=== PATIENT | female | born 1960 | race Two or more races ===

== ENCOUNTER → 2020-07-04 08:58 | Outpatient (BNVA) | payer OTHER, SELFPAY | PROVIDERS: PCP Nurse Practitioner Family; Referring Provider Nurse Practitioner Family; Visit Provider Student in an Organized Health Care Education/Training Program | DX: Z76.89 Persons encountering health services in other specified circumstances (principal) ==

== ENCOUNTER 2020-07-05 08:26 | Outpatient (REF) | payer OTHER, SELFPAY ==
--- NOTE | 2020-07-05 | US_ITS ---
EXAMINATION: US ABDOMEN COMPLETE CLINICAL INFORMATION: Chronic hepatitis C. COMPARISON: Ultrasound abdomen complete dated 12/24/2018 and 06/25/2017. CT abdomen and pelvis with contrast dated 08/21/2017. MRI abdomen without and with contrast dated 01/06/2015. TECHNIQUE: Real-time imaging of the abdominal viscera. FINDINGS: PANCREAS: The visualized head and the body of the pancreas are homogeneous in echotexture. The tail is obscured by overlying gas. ABDOMINAL AORTA: The proximal, mid, and distal segments are normal in caliber. INFERIOR VENA CAVA: Visualized portions are normal. LIVER: There is increased liver echogenicity. The liver is normal in size. The liver contour is normal. No focal hepatic lesion. There is no intrahepatic biliary duct dilatation seen. GALLBLADDER: The gallbladder is physiologically distended. Multiple mobile gallstones are present. No evidence of gallbladder wall thickening or pericholecystic fluid. COMMON BILE DUCT: Normal in caliber measuring 0.6 cm in diameter. RIGHT KIDNEY: Normal. No hydronephrosis. No renal calculi or focal parenchymal lesions. The kidney measures 9.3 cm in maximum dimension. LEFT KIDNEY: Normal. No hydronephrosis. No renal calculi or focal parenchymal lesions. The kidney measures 10.5 cm in maximum dimension. SPLEEN: Normal. The spleen measures 9.6 cm in maximum dimension. FREE FLUID: None. US/US abdomen complete IMPRESSION: Cholelithiasis without wall thickening or tenderness in the right upper quadrant. Hepatic steatosis without focal lesion. The above findings are unchanged to previous study 12/24/2018.
== END 2020-07-05 08:27 | disposition home or self-care (01) ==
LOC: HO.US 08:26
PROVIDERS: Visit Provider Internal Medicine
DX: B18.2 Chronic viral hepatitis C (principal)
CPT/HCPCS: 76700

== ENCOUNTER → 2020-07-11 10:18 | Outpatient (BNVA) | payer OTHER, SELFPAY | PROVIDERS: PCP Nurse Practitioner Family; Visit Provider Student in an Organized Health Care Education/Training Program | DX: M17.11 Unilateral primary osteoarthritis, right knee (principal); Z79.899 Other long term (current) drug therapy | CPT/HCPCS: 20610; 99211 ==

== ENCOUNTER 2020-07-17 08:42 | Outpatient (REF) | payer OTHER, SELFPAY ==
[2020-07-17 09:15] LABS: MANUAL DIFF FLAG NO
[2020-07-17 09:17] LABS: Basophils Percent Auto 0.4 % (0-2); Eosinophils Absolute Auto 0.1 X10*3/uL (0.0-0.4); Eosinophils Percent Auto 1.4 % (0-4); Hematocrit 38.3 % (37-47); Hemoglobin 12.4 g/dl (12.0-16.0); Imm Gran Abs Auto 0.02 X10*3/uL (0.00-0.03); Imm Gran Pct Auto 0.4 % (0.0-0.4); Lymphocytes Absolute Auto 1.6 X10*3/uL (1.2-4.9); Lymphocytes Percent Auto 27.6 % (20-40); Mean Corpuscular HGB Conc 32.4 g/dl (31.0-35.0); Mean Corpuscular Hemoglobin 28.5 pg (27.0-33.0); Monocytes Absolute Auto 0.4 X10*3/uL (0.1-1.2); Monocytes Percent Auto 7.3 % (2-11); Neutrophils Absolute Auto 3.6 X10*3/uL (2.0-8.3); Neutrophils Percent Auto 62.9 % (45-73); Platelet Count 230 X10*3/uL (160-400); Red Blood Count 4.35 X10*6/uL (4.20-5.50); Red Cell Distribution Width 13.4 % (11.0-16.0); White Blood Count 5.7 X10*3/uL (4.8-10.8)
[2020-07-17 09:23] LABS: Prothrombin Time 11.9 SEC (10.8-13.0)
[2020-07-17 09:45] LABS: Alanine Aminotransferase 15 U/L (0-31); Albumin Level 4.3 g/dL (3.5-5.0); Alkaline Phosphatase 125 U/L (39-117); Aspartate Amino Transferase 24 U/L (5-31); Bilirubin Direct 0.2 mg/dL (0.0-0.5); Bilirubin Total 0.5 mg/dL (0.0-1.0); Total Protein 7.9 g/dL (6.5-8.0)
[2020-07-18 11:23] LABS: Alpha Fetoprotein 2.8 ng/mL
[2020-09-27 11:55] LABS: HCV Log PCR <1.18 NOT DETECTED; HepC Viral Load <15 NOT DETECTED
== END 2020-07-17 08:43 | disposition home or self-care (01) ==
LOC: HO.LAB 08:42
PROVIDERS: PCP General Practice; Visit Provider Internal Medicine
DX: B18.2 Chronic viral hepatitis C (principal); Z87.19 Personal history of other diseases of the digestive system
CPT/HCPCS: 36415; 80076; 82105; 85025; 85610; 87522

== ENCOUNTER 2020-08-14 10:48 | Outpatient (REF) | payer OTHER, SELFPAY ==
--- NOTE | 2020-08-14 | MM_ITS ---
EXAMINATION: MM SCREENING DIGITAL BREAST TOMOSYNTHESIS, BILATERAL CLINICAL INFORMATION: Screening. Asymptomatic. The lifetime risk of breast cancer based on the Tyrer-Cuzick Model is 4%. COMPARISON: Mammography: 07/01/2019, 05/29/2018, 04/30/2017 TECHNIQUE: Digital breast tomosynthesis is performed in both the craniocaudal and mediolateral oblique views along with computer-aided detection (CAD). Synthesized 2D images are generated from the tomosynthesis. FINDINGS: There are scattered areas of fibroglandular density (ACR BI-RADS breast composition Category b). There are no significant masses, abnormal calcifications, or other abnormalities. Parenchymal pattern is similar to prior studies. No significant changes. MM/MM tomosynthesis screening BI IMPRESSION: No mammographic evidence of malignancy. ASSESSMENT: BI-RADS 1: Negative RECOMMENDATION: Routine annual mammography screening. This patient's information was entered into a reminder system with a target due date for their next mammogram.
== END 2020-08-14 10:49 | disposition home or self-care (01) ==
LOC: HO.MAMMO 10:48
PROVIDERS: Visit Provider General Practice
DX: Z12.31 Encounter for screening mammogram for malignant neoplasm of breast (principal)
CPT/HCPCS: 77063; 77067

== ENCOUNTER → 2020-11-09 10:11 | Outpatient (BNVA) | payer OTHER, SELFPAY | PROVIDERS: PCP General Practice; Visit Provider Student in an Organized Health Care Education/Training Program | DX: M17.11 Unilateral primary osteoarthritis, right knee (principal) | CPT/HCPCS: 20610; 99212 ==

== ENCOUNTER 2021-02-05 18:05 | Inpatient (IN) | payer OTHER, SELFPAY ==
--- NOTE | ~2021-02-05 | CT_ITS ---
EXAMINATION: CT ABDOMEN AND PELVIS WITH CONTRAST CLINICAL INFORMATION: Diffuse abdominal pain worse in the epigastrium COMPARISON: CT abdomen pelvis 08/21/2017 TECHNIQUE: Multidetector volumetric images were obtained from the superior aspect of the liver through the pubic symphysis following administration 85 mL of Omnipaque 350 intravenous contrast. Sagittal and coronal reformatted images were obtained on the technologist's workstation. Oral contrast: No This CT examination was performed using dose optimization techniques as appropriate, variously including the following: *Automated exposure control *Adjustment of mA and/or kV according to patient size (this includes techniques or standardized protocols for targeted exams where dose is matched to indication/reason for exam; i.e. extremities or head) *Use of iterative reconstruction technique DLP: 578 mGy-cm FINDINGS: LUNG BASES: The visualized lung bases are unremarkable. LIVER, GALLBLADDER, AND BILIARY TREE: The liver is normal in size, shape, and attenuation. No focal hepatic lesion or biliary ductal dilatation is present. The gallbladder contains at least one large gallstone measuring 1.4 cm in diameter with a tiny area of central calcification. No evidence of cholelithiasis. PANCREAS: Unremarkable. SPLEEN: Unremarkable. ADRENAL GLANDS: Unremarkable. KIDNEYS AND URETERS: The kidneys are normal in size, shape, and attenuation. No hydronephrosis, hydroureter, or calculi seen. Some tiny hypodensities are seen on the right, presumably cysts. No perinephric stranding. BLADDER: Unremarkable. GASTROINTESTINAL TRACT: The small and large bowel are unremarkable. The appendix is grossly abnormal and enlarged with periappendiceal inflammatory changes/phlegmon around the tip. Maximal diameter is 1.6 cm. No extraluminal air is seen. No well-defined fluid collections are seen. Prominent enhancing lymph nodes are present in the mesentery. On the 2018 study, the appendix was normal. ABDOMINAL WALL: No significant hernia is appreciated. LYMPH NODES: No retroperitoneal lymphadenopathy. Prominent enhancing lymph nodes in the mesentery around the appendix. Surgical clips are noted in both iliac regions possibly secondary to lymph node dissection. VASCULAR: Unremarkable. PELVIC VISCERA: Surgically removed. OSSEOUS STRUCTURES: Unremarkable. CT/CT abdomen pelvis w con IMPRESSION: Acute appendicitis. This critical result was discussed with Dr. Acosta at 11:35 PM on the evening of the exam and it was ascertained that the content and urgency of the report was understood at the time of direct communication. Other incidental findings as described above including cholelithiasis, tiny right renal cysts and hysterectomy
[2021-02-05 20:00] VITALS: BP 145/88; PULSE 92; RESP 16; TEMP 37; O2SAT 98
[2021-02-05 20:28] LABS: MANUAL DIFF FLAG NO
[2021-02-05 20:29] LABS: Basophils Percent Auto 0.3 % (0-2); Eosinophils Absolute Auto 0.1 X10*3/uL (0.0-0.4); Eosinophils Percent Auto 0.4 % (0-4); Hematocrit 38.4 % (37-47); Hemoglobin 12.8 g/dl (12.0-16.0); Imm Gran Abs Auto 0.06 X10*3/uL (0.00-0.03); Imm Gran Pct Auto 0.5 % (0.0-0.4); Lymphocytes Percent Auto 7.2 % (20-40); Mean Corpuscular HGB Conc 33.3 g/dl (31.0-35.0); Mean Corpuscular Hemoglobin 28.8 pg (27.0-33.0); Mean Corpuscular Volume 86.5 fL (80-98); Mean Platelet Volume 9.9 fL (9.4-12.3); Monocytes Absolute Auto 0.6 X10*3/uL (0.1-1.2); Monocytes Percent Auto 4.2 % (2-11); Neutrophils Absolute Auto 11.6 X10*3/uL (2.0-8.3); Neutrophils Percent Auto 87.4 % (45-73); Platelet Count 234 X10*3/uL (160-400); Red Blood Count 4.44 X10*6/uL (4.20-5.50); Red Cell Distribution Width 13.1 % (11.0-16.0); White Blood Count 13.2 X10*3/uL (4.8-10.8)
[2021-02-05 21:01] LABS: Anion Gap 16 (12-20); Blood Urea Nitrogen 14 mg/dL (9-16); Calcium 9.7 mg/dL (8.4-10.2); Carbon Dioxide 26 mmol/L (22-29); Chloride 102 mmol/L (96-108); Creatinine Clr Calc Pharmacy 58.8; Estimated Glomerular Filt Rate 56; Glucose Random 156 mg/dL (60-115); Lipase 57 U/L (8-78); Magnesium 1.7 mg/dL (1.6-2.6); Potassium 3.7 mmol/L (3.3-5.1); Sodium 140 mmol/L (135-145)
--- NOTE | 2021-02-05 21:37 | ECG_ITS ---
Test Reason : EPIGASTRIC PAIN Blood Pressure : / mmHG Vent. Rate : 069 BPM Atrial Rate : 069 BPM P-R Int : 148 ms QRS Dur : 084 ms QT Int : 400 ms P-R-T Axes : 012 024 024 degrees QTc Int : 428 ms Normal sinus rhythm Normal ECG No previous ECGs available Referred By: Marisa Acosta Electronically Signed By:Timo Isaac
--- NOTE | 2021-02-05 21:37 | ED.GENADULT ---
HPI - General Adult General Chief complaint: Nausea/Vomiting/Diarrhea Stated complaint: abdominal pain Time Seen by Provider: 02/05/21 21:23 Source: patient Mode of arrival: ambulatory Limitations: no limitations History of Present Illness HPI narrative: Patient comes to emergency room complaining epigastric pain starting around noon after eating lunch. Patient complaining of vomiting, states she has vomited multiple times, every 20 minutes approximately. Patient states the pain is sharp, nonradiating, the whole abdomen hurts but it is worse in the epigastric area. Since lunch, patient has not eaten anything. Patient denies diarrhea, no fever chills, no UTI symptoms, denies chest pain. Related Data Home Medications Medication Instructions Recorded Confirmed cyclobenzaprine 5 mg PO TID PRN 02/05/21 02/06/21 diclofenac sodium 75 mg PO BID PRN 02/05/21 02/06/21 fluoxetine 20 mg PO DAILY 02/05/21 02/06/21 gabapentin 300 mg PO BEDTIME 02/05/21 02/06/21 hydrochlorothiazide 12.5 mg PO QAM 02/05/21 02/06/21 sennosides [senna] 17.2 mg PO DAILY PRN 02/05/21 02/06/21 simethicone 125 mg PO QID PRN 02/05/21 02/06/21 trazodone 50 mg PO BEDTIME 02/05/21 02/06/21 Allergies Allergy/AdvReac Type Severity Reaction Status Date / Time acetaminophen [Tylenol] Allergy Unknown liver Verified 02/05/21 20:03 disease aspirin Allergy Unknown liver Verified 02/05/21 20:03 disease ibuprofen [From MOTRIN] Allergy Unknown TOLD NOT Verified 02/05/21 20:03 TO TAKE Benadryl Allergy Unknown itching Uncoded 02/05/21 20:03 Review of Systems Review of Systems: Constitutional : No Weight loss, No Fever, No Chills, No Night Sweats, No Fatigue, No Malaise ENT/Mouth : No Hearing loss, No Ear Pain, No Nasal Congestion, No Sinus Pain, No Hoarseness, No sore throat, No Rhinorrhea, No Swallowing Difficulty Eyes: No Eye Pain, No Swelling, No Redness, No Foreign Body, No Discharge, No Vision Changes Cardiovascular : No Chest Pain, No SOB, No Dyspnea on Exertion, No Orthopnea, No Edema, No Palpitations Respiratory : No Cough, No Sputum, No Wheezing, No Smoke Exposure, No Dyspnea Gastrointestinal : Complaining of nausea and vomiting, No Diarrhea, No Constipation, complaining of diffuse abdominal pain but much worse in the epigastric area, sharp, nonradiating, No Hematochezia, No Melena Genitourinary : no irregular bleeding, No Dysuria, No Urinary Frequency, No Hematuria, No Urinary Incontinence, No Urgency, No Flank Pain, No Urinary Flow Changes, No Hesitancy Musculoskeletal : No joint pain, No Myalgias, No Joint Swelling Skin : No Skin Lesions, No rash Neuro : No Weakness, No Numbness, No Paresthesias, No Loss of Consciousness, No Dizziness, No Headache Psych : No Anxiety/Panic, No Depression, No SI/HI/AH/VH, No Social Issues, Heme/Lymph: No Bruising, No Bleeding,No Lymphadenopathy Endocrine : No Polyuria, No Polydipsia, No Temperature Intolerance PMFSH Past Medical History Medical History Hypertension Primary osteoarthritis involving multiple joints Surgical History (Updated 02/05/21 @ 21:39 by Marisa Acosta MD) H/O: hysterectomy Social History Social History (Updated 07/11/20 @ 10:28 by Diogenes Shetty LPN) Alcohol intake: never Advance Directives: No Advance Directives Information Provided: No Physical Exam Vital Signs: Vital Signs: Last Vital Signs Temp 98.6 F 02/05/21 20:00 Pulse 77 02/05/21 22:09 Resp 16 02/05/21 22:09 BP 129/88 02/05/21 22:09 Pulse Ox 98 02/05/21 22:09 Body Mass Index 30.0 Appearance: Alert. Oriented X3. Seems uncomfortable Eyes: Pupils equal, round and reactive to light. ENT: Pharynx normal. Neck: Normal inspection. Neck supple. No lymph nodes noted. No crepitus CVS: Normal heart rate and rhythm. Pulses normal. Normal S1 and S2 Respiratory: No respiratory distress. Breath sounds normal. No Wheezing. No rales Abdomen: Soft , diffusely tender but mostly in the epigastric area, negative Prescott sign, No rigidity. No distention Skin: Skin warm and dry. Normal skin color. Normal skin turgor. Extremities: No lower extremity edema. No Lacerations. No Rash Neuro: Oriented X 3. No motor deficit. No sensory deficit. Moving all extermities. No slurred speech. Course Course Course Narrative: I discussed the labs and imaging with the patient, patient has acute appendicitis. I discussed with the patient the treatment is surgical. I discussed the patient with Dr. De La Garza patient will be admitted to surgery service for appendicitis Medical Decision Making Lab Data Result diagrams: 02/05/21 20:16 02/05/21 20:16 Labs: Lab Results 02/05/21 02/05/21 02/05/21 Range/Units 20:16 20:16 22:47 WBC 13.2 H (4.8-10.8) X10*3/uL RBC 4.44 (4.20-5.50) X10*6/uL Hgb 12.8 (12.0-16.0) g/dl Hct 38.4 (37-47) % MCV 86.5 (80-98) fL MCH 28.8 (27.0-33.0) pg MCHC 33.3 (31.0-35.0) g/dl RDW 13.1 (11.0-16.0) % Plt Count 234 (160-400) X10*3/uL MPV 9.9 (9.4-12.3) fL Immature Gran % (Auto) 0.5 H (0.0-0.4) % Neut % (Auto) 87.4 H (45-73) % Lymph % (Auto) 7.2 L (20-40) % [place] % (Auto) 4.2 (2-11) % Eos % (Auto) 0.4 (0-4) % Baso % (Auto) 0.3 (0-2) % Lymph # (Auto) 1.0 L (1.2-4.9) X10*3/uL [place] # (Auto) 0.6 (0.1-1.2) X10*3/uL Eos # (Auto) 0.1 (0.0-0.4) X10*3/uL Baso # (Auto) 0.0 (0.0-0.2) X10*3/uL Abs Immat Gran (auto) 0.06 H (0.00-0.03) X10*3/uL Absolute Neuts (auto) 11.6 H (2.0-8.3) X10*3/uL Absolute Nucleated RBC 0.000 (0.0-0.012) X10*3/uL Nucleated RBC % (auto) 0.0 (0.0-0.2) /100WBC Sodium 140 (135-145) mmol/L Potassium 3.7 (3.3-5.1) mmol/L Chloride 102 (96-108) mmol/L Carbon Dioxide 26 (22-29) mmol/L Anion Gap 16 (12-20) BUN 14 (9-16) mg/dL Creatinine 1.01 (0.5-1.4) mg/dL Estim Creat Clear Calc 58.8 Estimated GFR 56 Random Glucose 156 H (60-115) mg/dL Calcium 9.7 (8.4-10.2) mg/dL Magnesium 1.7 (1.6-2.6) mg/dL Total Bilirubin 0.6 (0.0-1.0) mg/dL Direct Bilirubin 0.2 (0.0-0.5) mg/dL AST 22 (5-31) U/L ALT 12 (0-31) U/L Alkaline Phosphatase 136 H (39-117) U/L Total Protein 8.1 H (6.5-8.0) g/dL Albumin 4.5 (3.5-5.0) g/dL Lipase 57 (8-78) U/L Urine Color STRAW Urine Appearance CLEAR Urine pH 7.5 (5.0-8.0) Ur Specific [place] <= 1.005 (1.005-1.025) Urine Protein NEG (NEG-TRACE) MG/DL Urine Glucose (UA) NEG (NEG) MG/DL Urine Ketones NEG (NEG) MG/DL Urine Blood NEG (NEG) Urine Nitrite POS H (NEG) Ur Leukocyte Esterase NEG (NEG) Urine RBC 0-2 (0) /HPF Urine WBC 0-2 (0-4) /HPF Ur Squamous Epith Cells TRACE /LPF Urine Bacteria 1+ /LPF Imaging Data CT scan - abdomen: Radiologist's impression: FINDINGS: LUNG BASES: The visualized lung bases are unremarkable. LIVER, GALLBLADDER, AND BILIARY TREE: The liver is normal in size, shape, and attenuation. No focal hepatic lesion or biliary ductal dilatation is present. The gallbladder contains at least one large gallstone measuring 1.4 cm in diameter with a tiny area of central calcification. No evidence of cholelithiasis. PANCREAS: Unremarkable. SPLEEN: Unremarkable. ADRENAL GLANDS: Unremarkable. KIDNEYS AND URETERS: The kidneys are normal in size, shape, and attenuation. No hydronephrosis, hydroureter, or calculi seen. Some tiny hypodensities are seen on the right, presumably cysts. No perinephric stranding. BLADDER: Unremarkable. GASTROINTESTINAL TRACT: The small and large bowel are unremarkable. The appendix is grossly abnormal and enlarged with periappendiceal inflammatory changes/phlegmon around the tip. Maximal diameter is 1.6 cm. No extraluminal air is seen. No well-defined fluid collections are seen. Prominent enhancing lymph nodes are present in the mesentery. On the 2018 study, the appendix was normal. ABDOMINAL WALL: No significant hernia is appreciated. LYMPH NODES: No retroperitoneal lymphadenopathy. Prominent enhancing lymph nodes in the mesentery around the appendix. Surgical clips are noted in both iliac regions possibly secondary to lymph node dissection. VASCULAR: Unremarkable. PELVIC VISCERA: Surgically removed. OSSEOUS STRUCTURES: Unremarkable. CT/CT abdomen pelvis w con IMPRESSION: Acute appendicitis. This critical result was discussed with Dr. Acosta at 11:35 PM on the evening of the exam and it was ascertained that the content and urgency of the report was understood at the time of direct communication. Other incidental findings as described above including cholelithiasis, tiny right renal cysts and hysterectomy ECG Data Attestation: I personally reviewed and interpreted this ECG as follows: (Normal sinus rhythm, heart rate 69, no ST segment depression or elevation, no T-wave inversion, QTC 428) Discharge Plan Discharge Clinical Impression: Acute appendicitis, UTI (urinary tract infection) Patient Disposition: Admitted As Inpatient
[2021-02-05 21:54] LABS: Alanine Aminotransferase 12 U/L (0-31); Albumin Level 4.5 g/dL (3.5-5.0); Alkaline Phosphatase 136 U/L (39-117); Aspartate Amino Transferase 22 U/L (5-31); Bilirubin Direct 0.2 mg/dL (0.0-0.5); Bilirubin Total 0.6 mg/dL (0.0-1.0); Total Protein 8.1 g/dL (6.5-8.0)
[2021-02-05] MEDS: Morphine Sulfate 4 MG/ML CARTRIDGE IVPUSH (22:01)
[2021-02-05] MEDS: 0.9 % Sodium Chloride 1,000 ML 999 ML IVCONT (22:02)
[2021-02-05] MEDS: ondansetron HCL 4 MG/2 ML VIAL IVPUSH (22:02)
[2021-02-05 22:09] VITALS: BP 129/88; PULSE 77; RESP 16; O2SAT 98
--- NOTE | 2021-02-05 22:10 | PC.NURSE ---
IV established, pt medicated per SEP. VSS. Pt off to CT on hospital bed.
[2021-02-05] MEDS: iohexoL 350 MG/ML 100 ML INFUS..BTL IV (22:38)
--- NOTE | 2021-02-05 22:57 | PC.NURSE ---
physics technical officer at bedside for EKG.
[2021-02-05 23:09] LABS: Glucose Urine UA NEG (NEG); Leukocyte Esterase Urine NEG (NEG); Nitrite Urine POS (NEG); PH 7.5 (5.0-8.0); Specific Gravity - Urine <= 1.005 (1.005-1.025); UACC Culture Trigger YES; Urine Blood NEG (NEG); Urine Ketones NEG (NEG); Urine Protein NEG (NEG-TRACE)
[2021-02-05 23:10] LABS: Appearance Urine CLEAR; Color Urine STRAW
[2021-02-05 23:23] LABS: Bacteria Urine 1+ /LPF; RBC Urine 0-2 /HPF (0); Squamous Epithelial Cell Urine TRACE /LPF; WBC Urine 0-2 /HPF (0-4)
[2021-02-06] VITALS (13 sets, daily range): BP systolic 109–141; BP diastolic 57–73; PULSE 73–100; RESP 16–18; TEMP 36.6–37.5; O2SAT 96–99; BMI 30.2
--- NOTE | 2021-02-06 00:09 | PC.NURSE ---
Med Rec completed by this RN. Covid swab obtained. Pt aware of plan to admit.
[2021-02-06 00:27] LABS: COVID-19 Test Negative (Negative); IDNOW Serial# 9DD0AD1C
[2021-02-06] MEDS: Piperacillin Sodium/Tazobactam 4.5 GM in 0.9 % Sodium Chloride 100 ML IV (00:30)
[2021-02-06] MEDS: HYDROmorphone HCl 1 MG/ML SYRINGE IVPUSH (00:31)
--- NOTE | 2021-02-06 00:33 | PC.NURSE ---
BCXX 2 and lactic obtained and sent. Pt medicated per SEP.
[2021-02-06] MEDS: Lactated Ringers 1,000 ML 80 ML IVCONT ×2 (00:42→16:40)
[2021-02-06 00:58] LABS: Lactic Acid 0.9 mmol/L (0.5-2.0)
[2021-02-06] MEDS: Morphine Sulfate 2 MG/ML CARTRIDGE 3 MG IVPUSH (05:54)
[2021-02-06] MEDS: Piperacillin Sodium/Tazobactam 3.375 GM in 0.9 % Sodium Chloride 50 ML IV ×2 (05:55→16:44)
--- NOTE | 2021-02-06 05:58 | PC.NURSE ---
Pt ambulating to the bathroom with a steady gait. Pt uncomfortable, reporting 5/10 pain, requesting pain medication. Pt medicated with Morphine per request. VSS. Pt medicated per MAR with Zosyn. Continue to monitor.
--- NOTE | 2021-02-06 07:28 | PM.HPGS ---
History of Present Illness History of Present Illness Date of Service: 02/08/21 Chief complaint: Acute Appendicitis Narrative: Tammie Connor is a 60 year old female who came to the ED last night because of abdominal pain.She actually describes this as mostly in the epigastric area. She says this morning this seems to be more painful on the right lower quadrant. she has some nausea. She denies any similar problems in the past. She states that she actually started to have pain about 5 days ago although this seemed to be much less in intensity. Her pain worsened yesterday. Review of Systems Constitutional: Constitutional: Denies chills and Denies fever(s) Cardiovascular: Cardiovascular: Denies chest pain, Denies dyspnea and Denies dyspnea on exertion Respiratory: Respiratory: Denies cough, Denies dyspnea and Denies dyspnea on exertion Gastrointestinal: Gastrointestinal: Denies hematochezia and Denies change in bowel habits Genitourinary: Genitourinary: Denies hematuria Musculoskeletal: Musculoskeletal: Denies back pain and Denies limited range of motion Neurologic: Denies focal weakness and Denies convulsions Psychiatric: Psychiatric: Denies depression and Denies mood swings PMFSH Past Medical History Medical History Hypertension Primary osteoarthritis involving multiple joints Surgical History Surgical History H/O: hysterectomy Social History Social History Household Members: None Housing: Apartment Do you presently have visiting nurse or other home services: Yes Alcohol intake: never Patient Tobacco Use Status: Never used Tobacco Use of substances other than those prescribed or required for medical reasons: No Currently Displaying Signs/Symptoms of Drug Intoxication Withdrawal: No Have you been hit, kicked, punched, or otherwise hurt by someone within the past year? If so, by whom?: No Are you DNR?: No Advance Directives: No Advance Directives Information Provided: No Do you have thoughts of harming others: None Do you have a plan to hurt others: No Plan Recently lost weight without trying: No Eating poorly because of decreased appetite: No Nutrition Risks: No Nutritional Risk service: No Meds Allergies Allergy/AdvReac Type Severity Reaction Status Date / Time acetaminophen [Tylenol] Allergy Unknown liver Verified 02/05/21 20:03 disease aspirin Allergy Unknown liver Verified 02/05/21 20:03 disease ibuprofen [From MOTRIN] Allergy Unknown TOLD NOT Verified 02/05/21 20:03 TO TAKE Benadryl Allergy Unknown itching Uncoded 02/05/21 20:03 Active Medications: Current Medications Generic Name Dose Route Start Last Admin Trade Name Freq PRN Reason Stop Dose Admin Lactated Ringer's 1,000 mls @ 80 mls/hr 02/06/21 00:15 02/06/21 00:42 Lr IVCONT 80 mls/hr .[id number] MAN Administration Piperacillin Sod/Tazobactam 50 mls @ 100 mls/hr 02/06/21 06:00 02/06/21 06:25 Sod 3.375 gm/ Sodium Chloride IV Infused Q6H MAN Infusion Morphine Sulfate 3 mg 02/06/21 00:13 02/06/21 05:54 Morphine Sulfate 2 Mg/Ml Cartridge IVPUSH 3 mg Q3H PRN Administration pain Sodium Chloride 3 ml 02/06/21 08:00 0.9 % Sodium Chloride Flush 3 Ml Syringe IVFLUSH QSHIFT [facility] Home Medications Medication Instructions Recorded Confirmed Last Taken Type cyclobenzaprine 5 mg PO TID PRN 02/05/21 02/06/21 02/04/21 History diclofenac sodium 75 mg PO BID PRN 02/05/21 02/06/21 02/04/21 08:00 History fluoxetine 20 mg PO DAILY 02/05/21 02/06/21 02/04/21 08:00 History gabapentin 300 mg PO BEDTIME 02/05/21 02/06/21 02/04/21 History hydrochlorothiazide 12.5 mg PO QAM 02/05/21 02/06/21 02/04/21 History sennosides [senna] 17.2 mg PO DAILY PRN 02/05/21 02/06/21 02/04/21 History simethicone 125 mg PO QID PRN 02/05/21 02/06/21 02/04/21 History trazodone 50 mg PO BEDTIME 02/05/21 02/06/21 02/04/21 History Physical Exam Vital Signs: Vital Signs: Last Vital Signs Temp 98.6 F 02/05/21 20:00 Pulse 73 02/06/21 02:08 Resp 16 07/13/21 02:08 BP 129/88 02/05/21 22:09 Pulse Ox 96 02/06/21 02:08 Body Mass Index 30.0 Const: Other: Appears a little uncomfortable General: no acute distress Orientation/consciousness: patient oriented x3 Neck: Neck: Yes no lymphadenopathy Resp: Auscultation: clear to auscultation bilaterally Cardio: Rhythm: regular rhythm GI: Other: Very tender on the right lower quadrant, right upper quadrant and epigastric area, no rebound, I did believe guarding on the right lower quadrant Palpation (GI): Soft to palpation Neuro: General: patient oriented x3 Results Results Labs: Short CBC 02/05/21 Range/Units 20:16 WBC 13.2 H (4.8-10.8) X10*3/uL Hgb 12.8 (12.0-16.0) g/dl Hct 38.4 (37-47) % Plt Count 234 (160-400) X10*3/uL BMP 02/05/21 20:16 Sodium 140 Potassium 3.7 Chloride 102 Carbon Dioxide 26 BUN 14 Creatinine 1.01 Calcium 9.7 Liver Function 02/05/21 Range/Units 20:16 Total Bilirubin 0.6 (0.0-1.0) mg/dL Direct Bilirubin 0.2 (0.0-0.5) mg/dL AST 22 (5-31) U/L ALT 12 (0-31) U/L Alkaline Phosphatase 136 H (39-117) U/L Albumin 4.5 (3.5-5.0) g/dL Urine 02/05/21 Range/Units 22:47 Urine Color STRAW Urine Appearance CLEAR Urine pH 7.5 (5.0-8.0) Ur Specific [place] <= 1.005 (1.005-1.025) Urine Protein NEG (NEG-TRACE) MG/DL Urine Glucose (UA) NEG (NEG) MG/DL Abdomen CT scan report/results: report reviewed and image reviewed CT scan - pelvis: report reviewed and image reviewed Assessment and Plan (1) Acute appendicitis: Qualifiers: Acute appendicitis type: other Qualified Code(s): K35.890 - Other acute appendicitis without perforation or gangrene Status: Acute I have reviewed her CAT scan and this shows periappendiceal stranding and significant thickening at the tip of the appendix consistent of acute appendicitis was possible phlegmon. She is very tender at this time. I therefore explained to her the option of proceeding with appendectomy. I explained the technique of laparoscopic appendectomy possible open appendectomy. I reviewed the risks including but not limited to bleeding, infections, bowel injury, leak from the staple lines, inherent risks of anesthesia, as well as benefits and alternatives. She understands the option of IV antibiotic treatment. She wants to proceed with appendectomy. She has history of hysterectomy many years ago and has a long low midline surgical scar. In view of this, there is a high likelihood of converting to open because of adhesions and she was made aware of this. Quality Stroke Does the patient have a stroke diagnosis?: No VTE Prior VTE?: No VTE Risk Level:: Medical - moderate - high VTE Device Contraindication: N/A - Device Ordered VTE Drug Contraindication: N/A - Med Ordered Procedures Date of Service Date of Service: 02/06/21
--- NOTE | 2021-02-06 10:44 | HO.ANESPROP2 ---
[facility] Active Problems Active Problems: All Active Problems (Updated 02/06/21 @ 00:06 by Marisa Acosta MD) Acute appendicitis (Acute) UTI (urinary tract infection) (Acute) Primary osteoarthritis of right knee (Acute) Primary osteoarthritis involving multiple joints (Acute) Past Medical History Medical History Hypertension Primary osteoarthritis involving multiple joints Surgical History Surgical History H/O: hysterectomy Social History Social History Alcohol intake: never Patient Tobacco Use Status: Never used Tobacco Use of substances other than those prescribed or required for medical reasons: No Are you DNR?: No Advance Directives: No Advance Directives Information Provided: No Meds Allergies Allergy/AdvReac Type Severity Reaction Status Date / Time acetaminophen [Tylenol] Allergy Unknown liver Verified 02/05/21 20:03 disease aspirin Allergy Unknown liver Verified 02/05/21 20:03 disease ibuprofen [From MOTRIN] Allergy Unknown TOLD NOT Verified 02/05/21 20:03 TO TAKE Benadryl Allergy Unknown itching Uncoded 02/05/21 20:03 Active Medications: Current Medications Generic Name Dose Route Start Last Admin Trade Name Freq PRN Reason Stop Dose Admin Lactated Ringer's 1,000 mls @ 80 mls/hr 02/06/21 00:15 02/06/21 00:42 Lr IVCONT 80 mls/hr .[id number] MAN Administration Piperacillin Sod/Tazobactam 50 mls @ 100 mls/hr 02/06/21 06:00 02/06/21 06:25 Sod 3.375 gm/ Sodium Chloride IV Infused Q6H MAN Infusion Morphine Sulfate 3 mg 02/06/21 00:13 02/06/21 05:54 Morphine Sulfate 2 Mg/Ml Cartridge IVPUSH 3 mg Q3H PRN Administration pain Sodium Chloride 3 ml 02/06/21 08:00 02/06/21 09:37 0.9 % Sodium Chloride Flush 3 Ml Syringe IVFLUSH Not Given QSHIFT [facility] Home Medications Medication Instructions Recorded Confirmed Last Taken Type cyclobenzaprine 5 mg PO TID PRN 02/05/21 02/06/21 02/04/21 History diclofenac sodium 75 mg PO BID PRN 02/05/21 02/06/21 02/04/21 08:00 History fluoxetine 20 mg PO DAILY 02/05/21 02/06/21 02/04/21 08:00 History gabapentin 300 mg PO BEDTIME 02/05/21 02/06/21 02/04/21 History hydrochlorothiazide 12.5 mg PO QAM 02/05/21 02/06/21 02/04/21 History sennosides [senna] 17.2 mg PO DAILY PRN 02/05/21 02/06/21 02/04/21 History simethicone 125 mg PO QID PRN 02/05/21 02/06/21 02/04/21 History trazodone 50 mg PO BEDTIME 02/05/21 02/06/21 02/04/21 History Exam Exam Date and Time: February 06, 2021 1044 Height,Weight and Vital Signs: Height 5 ft 4 in Weight 79.379 kg Last Vital Signs Temp 99.2 F 02/06/21 10:37 Pulse 83 02/06/21 10:37 Resp 18 02/06/21 10:37 BP 115/58 L 02/06/21 10:37 Pulse Ox 99 02/06/21 10:37 Pertinent Lab Results Pertinent Lab Results: Laboratory Tests 02/05/21 02/05/21 02/05/21 20:16 20:16 22:47 WBC 13.2 H RBC 4.44 Hgb 12.8 Hct 38.4 MCV 86.5 MCH 28.8 MCHC 33.3 RDW 13.1 Plt Count 234 MPV 9.9 Immature Gran % (Auto) 0.5 H Neut % (Auto) 87.4 H Lymph % (Auto) 7.2 L Wolfe % (Auto) 4.2 Eos % (Auto) 0.4 Baso % (Auto) 0.3 Lymph # (Auto) 1.0 L Wolfe # (Auto) 0.6 Eos # (Auto) 0.1 Baso # (Auto) 0.0 Abs Immat Gran (auto) 0.06 H Absolute Neuts (auto) 11.6 H Absolute Nucleated RBC 0.000 Nucleated RBC % (auto) 0.0 Sodium 140 Potassium 3.7 Chloride 102 Carbon Dioxide 26 Anion Gap 16 BUN 14 Creatinine 1.01 Estim Creat Clear Calc 58.8 Estimated GFR 56 Random Glucose 156 H Lactic Acid Calcium 9.7 Magnesium 1.7 Total Bilirubin 0.6 Direct Bilirubin 0.2 AST 22 ALT 12 Alkaline Phosphatase 136 H Total Protein 8.1 H Albumin 4.5 Lipase 57 Urine Color STRAW Urine Appearance CLEAR Urine pH 7.5 Ur Specific [place] <= 1.005 Urine Protein NEG Urine Glucose (UA) NEG Urine Ketones NEG Urine Blood NEG Urine Nitrite POS H Ur Leukocyte Esterase NEG Urine RBC 0-2 Urine WBC 0-2 Ur Squamous Epith Cells TRACE Urine Bacteria 1+ COVID-19 ([facility]) COVID-19 Clin Com 02/06/21 02/06/21 00:06 00:29 WBC RBC Hgb Hct MCV MCH MCHC RDW Plt Count MPV Immature Gran % (Auto) Neut % (Auto) Lymph % (Auto) Wolfe % (Auto) Eos % (Auto) Baso % (Auto) Lymph # (Auto) Wolfe # (Auto) Eos # (Auto) Baso # (Auto) Abs Immat Gran (auto) Absolute Neuts (auto) Absolute Nucleated RBC Nucleated RBC % (auto) Sodium Potassium Chloride Carbon Dioxide Anion Gap BUN Creatinine Estim Creat Clear Calc Estimated GFR Random Glucose Lactic Acid 0.9 Calcium Magnesium Total Bilirubin Direct Bilirubin AST ALT Alkaline Phosphatase Total Protein Albumin Lipase Urine Color Urine Appearance Urine pH Ur Specific [place] Urine Protein Urine Glucose (UA) Urine Ketones Urine Blood Urine Nitrite Ur Leukocyte Esterase Urine RBC Urine WBC Ur Squamous Epith Cells Urine Bacteria COVID-19 ([facility]) Negative COVID-19 Clin Com See Note Airway Mallampati Class: III TM Dist: <=3cm Neck ROM: Limited Loose/Missing/Broken Teeth: Yes (26) Assessment and Plan Assessment Anesthesia Assessment: Anesthesia Plan Discussed and Chart Reviewed Final Anesthetic Review NPO: Yes ASA Class: II Final Preanesthetic Review: No Changes in Pt Med Stat, Meds/Allgs Chart Reviewed, Consent Obtained/Reviewed and Anes Risks/Benef Reviewed Patient Risk: Low Procedure Risk: Low Assessment/Block/Sedation in SS: Assess/Block/Sedation-SS Anesthetic Plan Anesthetic Plan: GA Disposition: Standard PACU
--- NOTE | 2021-02-06 10:46 | HO.ANESPROP2 ---
[facility] Active Problems Active Problems: All Active Problems (Updated 02/06/21 @ 00:06 by Marisa Acosta MD) Acute appendicitis (Acute) UTI (urinary tract infection) (Acute) Primary osteoarthritis of right knee (Acute) Primary osteoarthritis involving multiple joints (Acute) Past Medical History Medical History Hypertension Primary osteoarthritis involving multiple joints Surgical History Surgical History H/O: hysterectomy Social History Social History Alcohol intake: never Patient Tobacco Use Status: Never used Tobacco Use of substances other than those prescribed or required for medical reasons: No Are you DNR?: No Advance Directives: No Advance Directives Information Provided: No Meds Allergies Allergy/AdvReac Type Severity Reaction Status Date / Time acetaminophen [Tylenol] Allergy Unknown liver Verified 02/05/21 20:03 disease aspirin Allergy Unknown liver Verified 02/05/21 20:03 disease ibuprofen [From MOTRIN] Allergy Unknown TOLD NOT Verified 02/05/21 20:03 TO TAKE Benadryl Allergy Unknown itching Uncoded 02/05/21 20:03 Active Medications: Current Medications Generic Name Dose Route Start Last Admin Trade Name Freq PRN Reason Stop Dose Admin Lactated Ringer's 1,000 mls @ 80 mls/hr 02/06/21 00:15 02/06/21 00:42 Lr IVCONT 80 mls/hr .[id number] MAN Administration Piperacillin Sod/Tazobactam 50 mls @ 100 mls/hr 02/06/21 06:00 02/06/21 06:25 Sod 3.375 gm/ Sodium Chloride IV Infused Q6H MAN Infusion Lactated Ringer's 500 mls @ 20 mls/hr 02/06/21 10:45 Lr IVCONT .Q24H MAN Morphine Sulfate 3 mg 02/06/21 00:13 02/06/21 05:54 Morphine Sulfate 2 Mg/Ml Cartridge IVPUSH 3 mg Q3H PRN Administration pain Sodium Chloride 3 ml 02/06/21 08:00 02/06/21 09:37 0.9 % Sodium Chloride Flush 3 Ml Syringe IVFLUSH Not Given QSHIFT [facility] Home Medications Medication Instructions Recorded Confirmed Last Taken Type cyclobenzaprine 5 mg PO TID PRN 02/05/21 02/06/21 02/04/21 History diclofenac sodium 75 mg PO BID PRN 02/05/21 02/06/21 02/04/21 08:00 History fluoxetine 20 mg PO DAILY 02/05/21 02/06/21 02/04/21 08:00 History gabapentin 300 mg PO BEDTIME 02/05/21 02/06/21 02/04/21 History hydrochlorothiazide 12.5 mg PO QAM 02/05/21 02/06/21 02/04/21 History sennosides [senna] 17.2 mg PO DAILY PRN 02/05/21 02/06/21 02/04/21 History simethicone 125 mg PO QID PRN 02/05/21 02/06/21 02/04/21 History trazodone 50 mg PO BEDTIME 02/05/21 02/06/21 02/04/21 History Exam Exam Date and Time: February 06, 2021 1046 Height,Weight and Vital Signs: Height 5 ft 4 in Weight 79.379 kg Last Vital Signs Temp 99.2 F 02/06/21 10:37 Pulse 83 02/06/21 10:37 Resp 18 02/06/21 10:37 BP 115/58 L 02/06/21 10:37 Pulse Ox 99 02/06/21 10:37 Pertinent Lab Results Pertinent Lab Results: Laboratory Tests 02/05/21 02/05/21 02/05/21 20:16 20:16 22:47 WBC 13.2 H RBC 4.44 Hgb 12.8 Hct 38.4 MCV 86.5 MCH 28.8 MCHC 33.3 RDW 13.1 Plt Count 234 MPV 9.9 Immature Gran % (Auto) 0.5 H Neut % (Auto) 87.4 H Lymph % (Auto) 7.2 L Luce % (Auto) 4.2 Eos % (Auto) 0.4 Baso % (Auto) 0.3 Lymph # (Auto) 1.0 L Luce # (Auto) 0.6 Eos # (Auto) 0.1 Baso # (Auto) 0.0 Abs Immat Gran (auto) 0.06 H Absolute Neuts (auto) 11.6 H Absolute Nucleated RBC 0.000 Nucleated RBC % (auto) 0.0 Sodium 140 Potassium 3.7 Chloride 102 Carbon Dioxide 26 Anion Gap 16 BUN 14 Creatinine 1.01 Estim Creat Clear Calc 58.8 Estimated GFR 56 Random Glucose 156 H Lactic Acid Calcium 9.7 Magnesium 1.7 Total Bilirubin 0.6 Direct Bilirubin 0.2 AST 22 ALT 12 Alkaline Phosphatase 136 H Total Protein 8.1 H Albumin 4.5 Lipase 57 Urine Color STRAW Urine Appearance CLEAR Urine pH 7.5 Ur Specific [place] <= 1.005 Urine Protein NEG Urine Glucose (UA) NEG Urine Ketones NEG Urine Blood NEG Urine Nitrite POS H Ur Leukocyte Esterase NEG Urine RBC 0-2 Urine WBC 0-2 Ur Squamous Epith Cells TRACE Urine Bacteria 1+ COVID-19 ([facility]) COVID-19 Clin Com 02/06/21 02/06/21 00:06 00:29 WBC RBC Hgb Hct MCV MCH MCHC RDW Plt Count MPV Immature Gran % (Auto) Neut % (Auto) Lymph % (Auto) Luce % (Auto) Eos % (Auto) Baso % (Auto) Lymph # (Auto) Luce # (Auto) Eos # (Auto) Baso # (Auto) Abs Immat Gran (auto) Absolute Neuts (auto) Absolute Nucleated RBC Nucleated RBC % (auto) Sodium Potassium Chloride Carbon Dioxide Anion Gap BUN Creatinine Estim Creat Clear Calc Estimated GFR Random Glucose Lactic Acid 0.9 Calcium Magnesium Total Bilirubin Direct Bilirubin AST ALT Alkaline Phosphatase Total Protein Albumin Lipase Urine Color Urine Appearance Urine pH Ur Specific [place] Urine Protein Urine Glucose (UA) Urine Ketones Urine Blood Urine Nitrite Ur Leukocyte Esterase Urine RBC Urine WBC Ur Squamous Epith Cells Urine Bacteria COVID-19 ([facility]) Negative COVID-19 Clin Com See Note Airway Mallampati Class: IV TM Dist: <=3cm Neck ROM: Limited Assessment and Plan Assessment Anesthesia Assessment: Anesthesia Plan Discussed and Chart Reviewed Final Anesthetic Review ASA Class: II Final Preanesthetic Review: No Changes in Pt Med Stat, Meds/Allgs Chart Reviewed, Consent Obtained/Reviewed and Anes Risks/Benef Reviewed Patient Risk: Low Procedure Risk: Low Assessment/Block/Sedation in SS: Assess/Block/Sedation-SS Anesthetic Plan Anesthetic Plan: GA Disposition: Standard PACU
[2021-02-06] MEDS: Lactated Ringers 500 ML 20 ML IVCONT (10:59)
--- NOTE | 2021-02-06 11:31 | P.EN_ITS ---
Event Note Date of Service: 02/06/21 Event Note: Catherine owens reviewed Ct films with Dr. Anderson - gus acute appendicitis, m maryd inflammatory chnages around appendix pt has given consent to proceed with surgery she belgicads planned procedure as well as risks, benefits and alternatives plan discussed with son Jose Rafael as well - [phone]
--- NOTE | 2021-02-06 11:31 | PM.EVENT ---
Event Note Date of Service: 02/06/21 Event Note: Catherine owens reviewed Ct films with Dr. Anderson - cw acute appendicitis, marked inflammatory chnages around appendix pt has given consent to proceed with surgery she udcompatands planned procedure as well as risks, benefits and alternatives plan discussed with son Jose Rafael as well - [phone]
--- NOTE | 2021-02-06 14:34 | W.PM.OPN ---
Operative Note Operative Note Date of Service: 02/06/21 Narrative: Preop diagnosis: Acute appendicitis Postop diagnosis: Acute appendicitis, with a markedly indurated appendix, very dense adhesions in the abdomen from previous hysterectomy Procedure: Attempted laparoscopic appendectomy, converted to open appendectomy via a low midline incision, with extensive lysis of adhesions Surgeon: Joey Kerns MD No general surgery physician assistant The patient is a 60 year female admitted last night because of abdominal pain. She describes this as started at the epigastric area but now had been mostly in the right lower quadrant. She says that this was severe yesterday although she had started to feel this in a very mild intensity about 4 days ago. Her CAT scan was reviewed with the radiologist and this was consistent with acute appendicitis with a markedly indurated appendix, severe periappendiceal stranding. The appendix was also seen to go up to the midline towards the epigastric area below the small bowel loops. She understood the technique of laparoscopic appendectomy possible open. She was aware of the risks, benefits, and alternatives. She had given consent. She was brought to the operating room and placed supine on the table under general anesthesia via endotracheal tube. A Hernandez catheter was inserted. A surgical time-out was done. The patient received Cefotan 2 g IV preoperatively. The abdomen is prepped and draped in the usual sterile fashion. I made a short infraumbilical incision using a blade 15. This carried down bluntly the full-thickness skin and thick subcutaneous fat down to the fascia. The fascia was incised. The peritoneum was entered. Through this incision a Leatha port was introduced. We then used the flat 10 mm scope into the peritoneal cavity. The examination showed very dense adhesions just inferior to the port site. I was able to however visualize the left lower quadrant. I made another stab incision in the left lower quadrant and through this incision a 5/12 mm port introduced. I moved the laparoscoe into this left lower quadrant port and again very dense adhesions were seen on the midline of the lower abdomen consistent with her previous hysterectomy. I moved the camera back into the umbilical port. Since I could not visualize the midline at the lower abdomen I decided to place a 5 mm port just below my lower quadrant port through a small stab incision. This 5 mm port was placed through this and I proceeded to attempt to lyse the adhesions in the low midline using the LigaSure with counter traction with the grasper. We were able to achieve some degree of lysis at the very low abdomen and actually was able to create a window on the adhesions to allow as to see part of the right lower quadrant. There was note of murky fluid in the pelvis. We had to proceed slowly with this with care being taken so as to make sure that we were not injuring any bowel loop. We decided to continue to try to lyse these adhesions for some time and we were able to release a lot of the adhesions on lower abdomen. However examination with laparoscopic alternating from both the umbilical port and the left lower quadrant port showed that there were still a lot of dense adhesions on the right side of the abdomen towards the gutter. We had made some progress already in the lower midline but it appeared that we would be unable to achieve anymore laparoscopically in view of the very dense adhesions on the right lower quadrant towards the right gutter along with adherent small bowel loops. I periodically switch to a 30 degree 10 mm scope to try to achieve better visualization without further success. Therefore I decided to proceed with an open procedure. I removed all ports. I made a low midline incision starting from the umbilical port site using blade 10. This was carried down with electrocautery through the full-thickness skin subcutaneous fat. The fascia was exposed. I then incised the fascia all the way and were therefore able to achieve better visualization. I applied Axel clamps on the fascial edge. I immediately saw this very dense adhesions on the right side of the abdomen. We had to carefully lyse this with the LigaSure. This part of the procedure took an extended period of time because of the very dense adhesions on the lower abdomen and right lower quadrant. Large amounts of the omentum and small bowel loops were densely adherent to these adhesions so we had to proceed carefully with the use of both the Metzenbaum scissors as well as electrocautery. These adhesions seemed to extend all the way to the right gutter so we had to do a lot more at lysis to be able to visualize the cecum. Eventually I was able to reflect all the omentum away from the pelvis and lower abdomen. I had to do more lysis of adhesions tethering the small bowel loops to allow me to reflect this as well away from the pelvis. Based on the location of the appendix on the CT scan, I then proceeded to examine the midline just on top of the retroperitoneum. Eventually, I was able to see the markedly indurated appendix starting ffrom the cecum, going down toward the pelvis up again at the midline towards the area above the umbilicus underneath a lot of small bowel loops and alongside the mesenteric root. At this point, I applied the Bookwalter retractors to achieve better exposure. With the Bookwalter retractor in place and the small bowel loops and mesentery retracted with the lap pads, I was able to clearly visualize the appendix. This was tortuous, long and very densely adherent to the mesenteric root. We therefore had to carefully separate this from the mesentery using gentle dissection with the right angle clamp and Metzenbaum scissors. By doing so I was able to clearly see the base of the appendix adjacent to the cecum. I applied right angle clamps at the base. I divided the appendix between the clamps using Metzenbaum scissors. I doubly ligated the base of the appendix with Dexon 2-0 ties and removed the clamp. I then proceeded to continue to separate the rest of the very indurated, thickened appendix off of the rest of the adjacent mesenteric root. By doing so, I was able to visualize and defined the mesoappendix. I used the LigaSure to divide the mesoappendix all the way towards the tip until was able to completely separate the appendix. This was sent as a specimen. I copiously irrigated. I suctioned the irrigant fluid and observed for hemostasis. Once hemostasis was confirmed on the divided omentum and mesentery, I proceeded to examine the small bowel loops surrounding the lower abdomen and the cecum. There were no evidence of any injury. No evidence of any leak of any enteric contents. I then proceeded to position a #10 ARSENIO drain at the area of where the appendix was adhered to. This was brought out through an exit site using the left lower quadrant portsite. This was secured to the skin with nylon 3-0 sutures. I then examined the peritoneum again wall for hemostasis. Once hemostasis was confirmed I proceeded to remove all retractors. I applied [place] clamps on the fascial edges. I closed the fascia with running Maxon 1 stitch. I irrigated the thick subcutaneous layer. I closed the skin incisions with skin ron. I infiltrated all incisions with Marcaine 0.5% for postop analgesia. Dressings were applied. The procedure was then completed. The patient tolerated the procedure well. There were no complications noted. Initial and final counts of sponges and instruments were correct. Estimated blood loss was about 100 cc. The patient was extubated without difficulty and transferred to the recovery room with stable vital signs.
--- NOTE | 2021-02-06 14:47 | PM.OP ---
Brief Operative Note Date of Service: 02/06/21 Pre-op diagnosis: Acute appendicitis Post-op diagnosis: same (With extensive adhesions) Procedure: Attempted laparoscopic appendectomy converted to open appendectomy via a low midline incision Surgeon: Joey Kerns MD Anesthesia: GETA Was an Damage Inside Adjuster used for this Procedure?: No Estimated blood loss (mL): 100 Pathology: other (Appendix) Condition: stable Disposition: PACU
--- NOTE | 2021-02-06 15:21 | MHC.CM.PN ---
Attempted to meet with patient in regards to discharge planning. Patient is currently in the OR. Will attempt to meet again. Continue to monitor for d/c needs.
[2021-02-06] MEDS: oxyCODONE HCl Immed Release 5 MG TABLET PO (15:28)
--- NOTE | 2021-02-06 16:17 | PM.EVENT ---
Event Note Date of Service: 02/06/21 Event Note: seen postop she underwent open appendectomy this afternoon - very dense adhesions from previous hysterectomy looks comfortable seems to have good pain control stable VS good UO pain mgt stanislav [place]
[2021-02-06] MEDS: 0.9 % Sodium Chloride Flush 3 ML SYRINGE IVFLUSH (16:43)
[2021-02-06] MEDS: Gabapentin 300 MG CAPSULE PO (21:50)
[2021-02-06] MEDS: HYDROmorphone HCl 0.5 MG/0.5 ML SYRINGE IVPUSH (22:27)
[2021-02-07] VITALS (8 sets, daily range): BP systolic 105–124; BP diastolic 55–75; PULSE 71–88; RESP 15–20; TEMP 36–37.1; O2SAT 92–99
[2021-02-07] MEDS: Piperacillin Sodium/Tazobactam 3.375 GM in 0.9 % Sodium Chloride 50 ML IV ×5 (00:02→23:29)
[2021-02-07] MEDS: 0.9 % Sodium Chloride Flush 3 ML SYRINGE IVFLUSH ×4 (00:04→20:30)
[2021-02-07] MEDS: Morphine Sulfate 2 MG/ML CARTRIDGE 3 MG IVPUSH ×2 (00:13→05:36)
[2021-02-07] MEDS: Lactated Ringers 1,000 ML 80 ML IVCONT ×2 (03:55→19:19)
[2021-02-07 05:56] LABS: Hematocrit 34.4 % (37-47); Mean Corpuscular Hemoglobin 28.4 pg (27.0-33.0); Mean Corpuscular Volume 88.9 fL (80-98); Mean Platelet Volume 9.8 fL (9.4-12.3); Platelet Count 200 X10*3/uL (160-400); Red Blood Count 3.87 X10*6/uL (4.20-5.50); Red Cell Distribution Width 13.5 % (11.0-16.0)
--- NOTE | 2021-02-07 06:05 | PC.NURSE ---
Pt slept most of night. Received dilaudid x1 for pain and Morphine x2 over the past 12 hours. Good effect from pain meds. Abdominal dsg is midline and D&I. Smaller dsg left mid abd is intact with staining marked. No N & V. Taking PO fluids in sips. IV fluids as ordered. Wilson cath removed at this time. Pt had a burning discomfort upon removal. Emptied 1100 ml of urine from wilson overnight 12 hours.
[2021-02-07 06:42] LABS: Anion Gap 12 (12-20); Blood Urea Nitrogen 9 mg/dL (9-16); Carbon Dioxide 27 mmol/L (22-29); Chloride 105 mmol/L (96-108); Creatinine Clr Calc Pharmacy 71.9; Estimated Glomerular Filt Rate > 60; Glucose Random 114 mg/dL (60-115); Potassium 3.6 mmol/L (3.3-5.1); Sodium 140 mmol/L (135-145)
[2021-02-07 06:52] LABS: Calcium 8.2 mg/dL (8.4-10.2)
--- NOTE | 2021-02-07 09:28 | P.PNGS_ITS ---
Subjective Subjective Date of Service: 02/07/21 Interval history: Says she feels well today Problems overnight Good pain control Physical Exam Vital Signs: Vital Signs: Last Vital Signs Temp 98 F 02/07/21 08:00 Pulse 73 02/07/21 08:00 Resp 20 02/07/21 08:00 BP 116/58 L 02/07/21 08:00 Pulse Ox 96 02/07/21 08:00 Body Mass Index 30.2 Laboratory Results - last 24 hr 02/07/21 02/07/21 05:45 05:45 WBC 14.0 H RBC 3.87 L Hgb 11.0 L Hct 34.4 L MCV 88.9 MCH 28.4 MCHC 32.0 RDW 13.5 Plt Count 200 MPV 9.8 Absolute Nucleated RBC 0.000 Nucleated RBC % (a uto) 0.0 Sodium 140 Potassium 3.6 Chloride 105 Carbon Dioxide 27 Anion Gap 12 BUN 9 Creatinine 0.83 Estim Creat Clear Calc 71.9 Estimated GFR > 60 Random Glucose 114 Calcium 8.2 L D Const: General: comfortable and no acute distress Resp: Effort & Inspection: normal respiratory effort Cardio: Rate: regular rate GI: Other: Dressings dry, ARSENIO drain scanty serosanguineous Palpation (GI): Soft to palpation and not firm Progress Note: A&P Assessment and plan (1) Acute appendicitis: Status: Acute Assessment and Plan: Status post open appendectomy for dense adhesions, very indurated appendix Looks well ARSENIO drain clear serosanguineous Labs okay Out of bed to chair Incentive spirometry Pain Management Clear liquid diet, advanced later Fall Risk Details Current Medications: Current Medications Generic Name Dose Route Start Last Admin Trade Name Karina PRN Reason Stop Dose Admin Fentanyl 50 mcg 02/06/21 10:45 Fentanyl Citrate/Pf 100 Mcg/2 Ml Vial IVPUSH Q5M PRN Pain, Severe (Pain Scale 7-10) Fluoxetine HCl 30 mg 02/07/21 09:00 Fluoxetine Hcl 10 Mg Capsule PO DAILY MAN Gabapentin 300 mg 02/06/21 21:00 02/06/21 21:50 Gabapentin 300 Mg Capsule PO 300 mg BEDTIME MAN Administration Hydrochlorothiazide 12.5 mg 02/07/21 09:00 Hydrochlorothiazide 12.5 Mg Tablet PO DAILY [facility] Protocol Hydromorphone HCl 0.5 mg 02/06/21 14:25 02/06/21 22:27 Hydromorphone Hcl 0.5 Mg/0.5 Ml Syringe IVPUSH 0.5 mg Q5M PRN Administration Pain, Severe (Pain Scale 7-10) Lactated Ringer's 1,000 mls @ 80 mls/hr 02/06/21 00:15 02/07/21 03:55 Lr IVCONT 80 mls/hr .[id number] MAN Administration Piperacillin Sod/Tazobactam 50 mls @ 100 mls/hr 02/06/21 06:00 02/07/21 06:24 Sod 3.375 gm/ Sodium Chloride IV Infused Q6H MAN Infusion Morphine Sulfate 3 mg 02/06/21 00:13 02/07/21 05:36 Morphine Sulfate 2 Mg/Ml Cartridge IVPUSH 3 mg Q3H PRN Administration pain Ondansetron HCl 4 mg 02/06/21 10:45 Ondansetron Hcl 4 Mg/2 Ml Vial IVPUSH ONCE PRN Nausea and Vomiting Ondansetron HCl 4 mg 02/06/21 14:30 Ondansetron Hcl 4 Mg/2 Ml Vial IVPUSH Q8H PRN Nausea Sodium Chloride 3 ml 02/06/21 08:00 02/07/21 00:04 0.9 % Sodium Chloride Flush 3 Ml Syringe IVFLUSH 3 ml QSHIFT MAN Administration Time Spent With Patient Time: Total time spent is greater than 50% in coordination of care (as documented) at patient's floor/unit and/or counseling patient: Time with patient: 15 - 24 minutes Procedures Date of Service Date of Service: 02/07/21 Quality Stroke Does the patient have a stroke diagnosis?: No VTE Prior VTE?: No VTE Risk Level:: Medical - moderate - high VTE Device Contraindication: N/A - Device Ordered VTE Drug Contraindication: N/A - Med Ordered
--- NOTE | 2021-02-07 10:16 | MHC.CM.PN ---
with interpertaor met with pt who explins mthat she lives alone pt had no services prior to admisision and does not anticapate needing services when dcd ..her family will transport her home
[2021-02-07] MEDS: oxyCODONE HCl Immed Release 5 MG TABLET 10 MG PO ×2 (10:54→15:17)
[2021-02-07] MEDS: Heparin Sodium,Porcine 5,000 UNIT/ML VIAL 5000 UNIT SUBCUT ×2 (10:55→20:30)
[2021-02-07] MEDS: FLUoxetine HCl 10 MG CAPSULE 30 MG PO (10:55)
[2021-02-07] MEDS: hydroCHLOROthiazide 12.5 MG TABLET PO (10:55)
--- NOTE | 2021-02-07 15:03 | HO.POSTANES ---
Post Anesthesia Evaluation Post Anesthesia Evaluation Vital Signs: Vital Signs Temp Pulse Resp BP Pulse Ox 02/07/21 11:04 96.8 F 71 18 105/67 99 02/07/21 08:00 98 F 73 20 116/58 L 96 02/07/21 04:00 97.2 F 72 16 124/55 L 96 Anesthesia: General Endotracheal-GETA Mental Status: Awake Pain Control: Satisfactory Nausea/Vomiting: None Hydration: Adequate Anesthesia-Related Issues: No Anes. Related Issues
[2021-02-07] MEDS: Gabapentin 300 MG CAPSULE PO (20:30)
[2021-02-08] VITALS (8 sets, daily range): BP systolic 105–136; BP diastolic 56–78; PULSE 78–90; RESP 18–20; TEMP 36.3–36.9; O2SAT 94–98
[2021-02-08] MEDS: Piperacillin Sodium/Tazobactam 3.375 GM in 0.9 % Sodium Chloride 50 ML IV ×3 (05:49→17:02)
[2021-02-08] MEDS: Lactated Ringers 1,000 ML 80 ML IVCONT (05:51)
[2021-02-08] MEDS: oxyCODONE HCl Immed Release 5 MG TABLET 10 MG PO ×2 (05:53→14:46)
--- NOTE | 2021-02-08 09:58 | PM.PNGS ---
Subjective Subjective Date of Service: 02/08/21 Interval history: says she feels well today denies significant pain passing flatus tolerating liquids Physical Exam Vital Signs: Vital Signs: Last Vital Signs Temp 98.0 F 02/08/21 08:00 Pulse 88 02/08/21 08:00 Resp 18 02/08/21 08:00 BP 117/64 02/08/21 08:00 Pulse Ox 94 02/08/21 08:00 Oxygen Flow Rate 2 02/07/21 14:25 Body Mass Index 30.2 Const: Other: looks comfortable, General: no acute distress Resp: Effort & Inspection: normal respiratory effort Cardio: Rhythm: regular rhythm GI: Other: incision clean and dry, ARSENIO drain scan T, serosanguineous Palpation (GI): Soft to palpation and not firm Progress Note: A&P Assessment and plan (1) Acute appendicitis: Status: Acute Assessment and Plan: status post open appendectomy clinically doing well diet as tolerated OOB ambulate possible home tomorrow Fall Risk Details Current Medications: Current Medications Generic Name Dose Route Start Last Admin Trade Name Freq PRN Reason Stop Dose Admin Fentanyl 50 mcg 02/06/21 10:45 Fentanyl Citrate/Pf 100 Mcg/2 Ml Vial IVPUSH Q5M PRN Pain, Severe (Pain Scale 7-10) Fluoxetine HCl 30 mg 02/07/21 09:00 02/07/21 10:55 Fluoxetine Hcl 10 Mg Capsule PO 30 mg DAILY MAN Administration Gabapentin 300 mg 02/06/21 21:00 02/07/21 20:30 Gabapentin 300 Mg Capsule PO 300 mg BEDTIME MAN Administration Heparin Sodium (Porcine) 5,000 unit 02/07/21 10:00 02/07/21 20:30 Heparin Sodium,Porcine 5,000 Unit/Ml Vial SUBCUT 5,000 unit Q12H MAN Administration Hydrochlorothiazide 12.5 mg 02/07/21 09:00 02/07/21 10:55 Hydrochlorothiazide 12.5 Mg Tablet PO 12.5 mg DAILY MAN Administration Protocol Hydromorphone HCl 0.5 mg 02/06/21 14:25 02/06/21 22:27 Hydromorphone Hcl 0.5 Mg/0.5 Ml Syringe IVPUSH 0.5 mg Q5M PRN Administration Pain, Severe (Pain Scale 7-10) Lactated Ringer's 1,000 mls @ 80 mls/hr 02/06/21 00:15 02/08/21 05:51 Lr IVCONT 80 mls/hr .[id number] MAN Administration Piperacillin Sod/Tazobactam 50 mls @ 100 mls/hr 02/06/21 06:00 02/08/21 06:20 Sod 3.375 gm/ Sodium Chloride IV Infused Q6H MAN Infusion Morphine Sulfate 3 mg 02/06/21 00:13 02/07/21 05:36 Morphine Sulfate 2 Mg/Ml Cartridge IVPUSH 3 mg Q3H PRN Administration pain Ondansetron HCl 4 mg 02/06/21 10:45 Ondansetron Hcl 4 Mg/2 Ml Vial IVPUSH ONCE PRN Nausea and Vomiting Ondansetron HCl 4 mg 02/06/21 14:30 Ondansetron Hcl 4 Mg/2 Ml Vial IVPUSH Q8H PRN Nausea Oxycodone HCl 10 mg 02/07/21 09:31 02/08/21 05:53 Oxycodone Hcl Immed Release 5 Mg Tablet PO 10 mg Q4H PRN Administration Pain, Moderate (Pain Scale 4-6 Sodium Chloride 3 ml 02/06/21 08:00 02/07/21 20:30 0.9 % Sodium Chloride Flush 3 Ml Syringe IVFLUSH 3 ml QSHIFT MAN Administration Time Spent With Patient Time: Total time spent is greater than 50% in coordination of care (as documented) at patient's floor/unit and/or counseling patient: Time with patient: 15 - 24 minutes Procedures Date of Service Date of Service: 02/08/21 Quality Stroke Does the patient have a stroke diagnosis?: No VTE Prior VTE?: No VTE Risk Level:: Medical - moderate - high VTE Device Contraindication: N/A - Device Ordered VTE Drug Contraindication: N/A - Med Ordered
[2021-02-08] MEDS: 0.9 % Sodium Chloride Flush 3 ML SYRINGE IVFLUSH ×2 (10:01→21:13)
[2021-02-08] MEDS: FLUoxetine HCl 10 MG CAPSULE 30 MG PO (10:02)
[2021-02-08] MEDS: Heparin Sodium,Porcine 5,000 UNIT/ML VIAL 5000 UNIT SUBCUT ×2 (10:02→21:12)
[2021-02-08] MEDS: hydroCHLOROthiazide 12.5 MG TABLET PO (10:05)
--- NOTE | 2021-02-08 16:25 | PC.NURSE ---
LLQ ARSENIO drain dressing changed today, 15ml serosanguineous fluid in ARSENIO drain. advanced to regular diet, tolerating well. received x1 dose oxycodone today. urine culture from 02/05 positive for Escherichia coli, only on zosyn at this time. MD notified and looking into it.
[2021-02-08] MEDS: Gabapentin 300 MG CAPSULE PO (21:12)
[2021-02-09] MEDS: Piperacillin Sodium/Tazobactam 3.375 GM in 0.9 % Sodium Chloride 50 ML IV ×3 (00:19→13:52)
[2021-02-09] MEDS: oxyCODONE HCl Immed Release 5 MG TABLET 10 MG PO ×3 (02:47→13:49)
[2021-02-09 04:00] VITALS: BP 115/71; RESP 18; TEMP 36.8; O2SAT 95
[2021-02-09 08:00] VITALS: BP 127/73; PULSE 85; RESP 18; TEMP 37.2; O2SAT 92
[2021-02-09] MEDS: hydroCHLOROthiazide 12.5 MG TABLET PO (08:58)
[2021-02-09] MEDS: Heparin Sodium,Porcine 5,000 UNIT/ML VIAL 5000 UNIT SUBCUT (08:59)
[2021-02-09] MEDS: FLUoxetine HCl 10 MG CAPSULE 30 MG PO (08:59)
[2021-02-09] MEDS: 0.9 % Sodium Chloride Flush 3 ML SYRINGE IVFLUSH (09:02)
--- NOTE | 2021-02-09 09:36 | MHC.CM.PN ---
Patient has been medically cleared for dc to home today, no services. Last IMM addressed on 02/07/2021.
--- NOTE | 2021-02-09 10:24 | PM.PNGS ---
Subjective Subjective Date of Service: 02/09/21 Interval history: States she feels well Tolerating diet Some flatus Denies severe pain Physical Exam Vital Signs: Vital Signs: Last Vital Signs Temp 98.9 F 02/09/21 08:00 Pulse 85 02/09/21 08:00 Resp 18 02/09/21 08:00 BP 127/73 02/09/21 08:00 Pulse Ox 92 02/09/21 08:00 Oxygen Flow Rate 2 02/07/21 14:25 Body Mass Index 30.2 Const: General: comfortable and no acute distress Resp: Effort & Inspection: normal respiratory effort Cardio: Rhythm: regular rhythm GI: Other: Incision clean and dry, ARSENIO drain scanty serosanguineous Palpation (GI): Soft to palpation, not firm and nontender Progress Note: A&P Assessment and plan (1) Acute appendicitis: Status: Acute Assessment and Plan: Clinically doing very well ARSENIO drain DC Patient says she wants to go home and feels ready Discharge instructions given Will see in the office for follow-up visit Fall Risk Details Current Medications: Current Medications Generic Name Dose Route Start Last Admin Trade Name Freq PRN Reason Stop Dose Admin Fentanyl 50 mcg 02/06/21 10:45 Fentanyl Citrate/Pf 100 Mcg/2 Ml Vial IVPUSH Q5M PRN Pain, Severe (Pain Scale 7-10) Fluoxetine HCl 30 mg 02/07/21 09:00 02/09/21 08:59 Fluoxetine Hcl 10 Mg Capsule PO 30 mg DAILY MAN Administration Gabapentin 300 mg 02/06/21 21:00 02/08/21 21:12 Gabapentin 300 Mg Capsule PO 300 mg BEDTIME MAN Administration Heparin Sodium (Porcine) 5,000 unit 02/07/21 10:00 02/09/21 08:59 Heparin Sodium,Porcine 5,000 Unit/Ml Vial SUBCUT 5,000 unit Q12H MAN Administration Hydrochlorothiazide 12.5 mg 02/07/21 09:00 02/09/21 08:58 Hydrochlorothiazide 12.5 Mg Tablet PO 12.5 mg DAILY MAN Administration Protocol Hydromorphone HCl 0.5 mg 02/06/21 14:25 02/06/21 22:27 Hydromorphone Hcl 0.5 Mg/0.5 Ml Syringe IVPUSH 0.5 mg Q5M PRN Administration Pain, Severe (Pain Scale 7-10) Piperacillin Sod/Tazobactam 50 mls @ 100 mls/hr 02/06/21 06:00 02/09/21 06:35 Sod 3.375 gm/ Sodium Chloride IV Infused Q6H MAN Infusion Morphine Sulfate 3 mg 02/06/21 00:13 02/07/21 05:36 Morphine Sulfate 2 Mg/Ml Cartridge IVPUSH 3 mg Q3H PRN Administration pain Ondansetron HCl 4 mg 02/06/21 10:45 Ondansetron Hcl 4 Mg/2 Ml Vial IVPUSH ONCE PRN Nausea and Vomiting Ondansetron HCl 4 mg 02/06/21 14:30 Ondansetron Hcl 4 Mg/2 Ml Vial IVPUSH Q8H PRN Nausea Oxycodone HCl 10 mg 02/07/21 09:31 02/09/21 10:15 Oxycodone Hcl Immed Release 5 Mg Tablet PO 10 mg Q4H PRN Administration Pain, Moderate (Pain Scale 4-6 Sodium Chloride 3 ml 02/06/21 08:00 02/09/21 09:02 0.9 % Sodium Chloride Flush 3 Ml Syringe IVFLUSH 3 ml QSHIFT MAN Administration Time Spent With Patient Time: Total time spent is greater than 50% in coordination of care (as documented) at patient's floor/unit and/or counseling patient: Time with patient: 15 - 24 minutes Procedures Date of Service Date of Service: 02/09/21 Quality Stroke Does the patient have a stroke diagnosis?: No VTE Prior VTE?: No VTE Risk Level:: Medical - moderate - high VTE Device Contraindication: N/A - Device Ordered VTE Drug Contraindication: N/A - Med Ordered
--- NOTE | 2021-02-09 10:27 | PM.DS ---
DS: Providers Provider Date of Service: 02/09/21 Date of admission: 02/06/21 00:08 Primary care physician: Lala Sarah MD DS: Diagnosis Discharge Diagnosis (1) Acute appendicitis: Status: Acute DS: Medications Discharge Medications Home Medications: Home Medications Medication Instructions Recorded Confirmed cyclobenzaprine 5 mg PO TID PRN 02/05/21 02/06/21 diclofenac sodium 75 mg PO BID PRN 02/05/21 02/06/21 fluoxetine 20 mg PO DAILY 02/05/21 02/06/21 gabapentin 300 mg PO BEDTIME 02/05/21 02/06/21 hydrochlorothiazide 12.5 mg PO QAM 02/05/21 02/06/21 sennosides [senna] 17.2 mg PO DAILY PRN 02/05/21 02/06/21 simethicone 125 mg PO QID PRN 02/05/21 02/06/21 trazodone 50 mg PO BEDTIME 02/05/21 02/06/21 Previous Rx's Medication Instructions Recorded oxycodone-acetaminophen [Percocet] 1 - 2 tab PO Q4-6H PRN #30 tab 02/09/21 DS: Summary Hospital Course Hospital Course: [age] year female who came to the ER on the evening of February 05, 2021 for abdominal pain. Her CAT scan was consistent with acute appendicitis. She underwent attempted laparoscopic appendectomy converted to open appendectomy via midline incision on February 06. She tolerated procedure well. She had a ARSENIO drain in place. She was transferred to the regular floor postoperatively. She was managed for pain continued on antibiotics. She was on clear liquids postop and this was advanced gradually. She continued to do well and the ARSENIO drain was discontinued on her postop day 3. The time of her discharge, she was tolerating regular diet and had good GI function. She had remained afebrile. She has positive for a UTI on a urinalysis on admission, but she had received several days of Zosyn which was adequate for treatment. Time Spent with Patient Time attestation: Total time spent providing and/or coordinating discharge services: Discharge coordination time: Less than 30 minutes Quality: Stroke Does the patient have a stroke diagnosis?: No Physical Exam Vital Signs: Vital Signs: Last Vital Signs Temp 98.9 F 02/09/21 08:00 Pulse 85 02/09/21 08:00 Resp 18 02/09/21 08:00 BP 127/73 02/09/21 08:00 Pulse Ox 92 02/09/21 08:00 Oxygen Flow Rate 2 02/07/21 14:25 Body Mass Index 30.2 Const: General: comfortable and no acute distress Orientation/consciousness: patient oriented x3 Neck: Neck: Yes no lymphadenopathy Resp: Auscultation: clear to auscultation bilaterally Cardio: Rhythm: regular rhythm GI: Other: Incision clean and dry Palpation (GI): Soft to palpation and no guarding Neuro: General: patient oriented x3 DS: Data Data Completed and Pending Completed studies during hospitalization [Text1]: Pending at discharge 02/06/21 13:51 Surgical [PTH] Routine Labs on day of discharge: Preliminary micro results at discharge 02/06/21 00:29 Blood Culture - Preliminary Blood - Venous No growth after 48 hours. 02/06/21 00:29 Blood Culture - Preliminary Blood - Venous No growth after 48 hours. Discharge Plan Discharge Patient Disposition: Home, Self-Care Discharge Diagnosis: acute appendicitis Referrals: Lala Sarah MD [Primary Care Provider] - 1 Week Joey Kerns MD [Physician] - 1 Week Discharge Medications: New oxycodone-acetaminophen [Percocet] 5-325 mg tablet 1 - 2 tab PO Q4-6H PRN (Reason: pain) Qty: 30 RF: 0 Continued sennosides [senna] 8.6 mg tablet 17.2 mg PO DAILY PRN (Reason: constipation) RF: 0 trazodone 50 mg tablet 50 mg PO BEDTIME RF: 0 gabapentin 300 mg capsule 300 mg PO BEDTIME RF: 0 diclofenac sodium 75 mg tablet,delayed release (DR/EC) 75 mg PO BID PRN (Reason: pain) RF: 0 simethicone 125 mg tablet,chewable 125 mg PO QID PRN (Reason: gas) RF: 0 fluoxetine 20 mg capsule 20 mg PO DAILY RF: 0 cyclobenzaprine 5 mg tablet 5 mg PO TID PRN (Reason: muscle spasm) RF: 0 hydrochlorothiazide 12.5 mg tablet 12.5 mg PO QAM RF: 0 Discharge Orders: Discharge Order (Routine); Ordered 02/09/21 Ordered By: Joey Kerns Activity on Discharge: No heavy lifting Stand Alone Forms: Patient Portal Discharge page Activity Restrictions/Additional Instructions: If the incision area is tender, you may apply an ice pack for short intervals (No more than 20 minutes on, followed by at least 20 minutes off). Do not apply heat. Do not use creams, lotions, or topical antibiotics unless instructed to do so by your surgeon. These can cause infection or allergic reaction. OK to shower No lifting more than 20 lbs No strenuous activities Call the office for follow-up in 2 weeks - with Dr. Kerns Call Your Doctor If: -Your temperature exceeds 101.5? F -You experience excessive pain or swelling -You have an unexpected reaction to medication -You have excessive bleeding -You experience continued vomiting/nausea -Your incision begins to separate -Your incision shows signs of infection such as increased redness, swelling, excessive pain, drainage (light blood or clear fluid is normal) or heat Care Plan Goals: pain control Health Concerns: pain control arthritis Plan of Treatment: oral pain meds Assessment: doing very well
--- NOTE | 2021-02-09 11:04 | P.CDIC_ITS ---
CDI Concurrent Query Service Date: 02/19/21 Documentation Clarification: Please clarify if you are treating a proba ble/suspected/likely or confirmed: Acute Appendicitis with Perforation Acute Appendicitis without Perforation Other, please specify Unable to Determine Path report shows perforation Provider Response: Other (Path report shows perforation of the appendix) Other Diagnosis: Path report shows perforation of the appendix PLEASE DO NOT DELETE/MODIFY EXISTING CONTENT Additional information is needed in order to code to the highest accuracy and appropriate Severity of Illness (SOI). Please clarify the information noted below in your progress notes and discharge summary. Risk Factors/Clinical Indicators/Treatments Per Operative Report 02/06/21: note of murky fluid in the pelvis. Per pathology report: the wall is homogenous, bales-white and measures up to 0.5 cm in thickness with the exception of the focus which appears to be consistent with perforation in the mid- appebdix with adherent clot CDS: Trinity Ye RN Contact Number: [phone] Please Review the information above and exercise your independent professional judgment in responding to the query. If you concur, pleas document in the PROGRESS NOTES and DISCHARGE SUMMARY. If you do not agree with the query, please document in the query above. THIS QUERY IS PART OF THE PERMANENT MEDICAL RECORD
[2021-02-09 12:00] VITALS: BP 125/71; PULSE 86; RESP 14; TEMP 36.5; O2SAT 95
[2021-02-09 16:00] VITALS: BP 139/75; PULSE 71; RESP 20; TEMP 36.6; O2SAT 91
== END 2021-02-09 18:50 | disposition home or self-care (01) | DRG 336 ==
LOC: HO.ED 02-06 00:04 → HO.EDOVER 02-06 01:57 → HO.ICU 02-06 15:37 → HO.IMC 02-07 07:36
PROVIDERS: Admitting Provider Surgery; Emergency Provider Emergency Medicine; PCP General Practice; Visit Provider Surgery
PROC: 0DTJ4ZZ Resection of Appendix, Percutaneous Endoscopic Approach (ICD-10-PCS; CPT 44970; principal; 2021-02-06 13:30)
DX: K35.32 Acute appendicitis with perforation, localized peritonitis, and gangrene, without abscess (principal); N39.0 Urinary tract infection, site not specified; N99.4 Postprocedural pelvic peritoneal adhesions; Z20.822 Contact with and (suspected) exposure to COVID-19; Z88.6 Allergy status to analgesic agent; Z79.899 Other long term (current) drug therapy
CPT/HCPCS: 36415; 74177; 80048; 80076; 81001; 81003; 83605; 83690; 83735; 85025; 85027; 87040; 87086; 87088; 87186; 87635; 88304; 93005; 99024; 99285; J0131; J1100; J1170; J2270; J2405; J2543; J3010; Q9967

== ENCOUNTER → 2021-02-21 08:46 | Outpatient (BNVA) | payer OTHER, SELFPAY | PROVIDERS: PCP General Practice; Referring Provider General Practice; Visit Provider Surgery | DX: Z48.815 Encounter for surgical aftercare following surgery on the digestive system (principal); Z90.49 Acquired absence of other specified parts of digestive tract | CPT/HCPCS: 99212 ==

== ENCOUNTER → 2021-05-30 10:03 | Outpatient (BNVA) | payer OTHER, SELFPAY | PROVIDERS: PCP General Practice; Visit Provider Nurse Practitioner Family | DX: M17.11 Unilateral primary osteoarthritis, right knee (principal) | CPT/HCPCS: 99212 ==

== ENCOUNTER 2021-08-20 14:34 | Outpatient (REF) | payer OTHER, SELFPAY ==
--- NOTE | ~2021-08-20 | MM_ITS ---
EXAMINATION: MM SCREENING DIGITAL BREAST TOMOSYNTHESIS, BILATERAL CLINICAL INFORMATION: Screening. Asymptomatic. The lifetime risk of breast cancer based on the Tyrer-Cuzick Model is 4%. COMPARISON: Mammography: 08/14/2020, 07/01/2019, 05/29/2018 TECHNIQUE: Digital breast tomosynthesis is performed in both the craniocaudal and mediolateral oblique views along with computer-aided detection (CAD). Synthesized 2D images are generated from the tomosynthesis. FINDINGS: There are scattered areas of fibroglandular density (ACR BI-RADS breast composition Category b). There are no significant masses, abnormal calcifications, or other abnormalities. Breast tissue composition borders on heterogeneously dense. There is no developing density. No significant changes. MM/MM tomosynthesis screening BI IMPRESSION: No mammographic evidence of malignancy. ASSESSMENT: BI-RADS 1: Negative RECOMMENDATION: Routine annual mammography screening. This patient's information was entered into a reminder system with a target due date for their next mammogram.
== END 2021-08-20 14:35 | disposition home or self-care (01) ==
LOC: HO.MAMMO 14:34
PROVIDERS: PCP General Practice; Visit Provider General Practice
DX: Z12.31 Encounter for screening mammogram for malignant neoplasm of breast (principal)
CPT/HCPCS: 77063; 77067

== ENCOUNTER 2021-10-31 07:39 | Outpatient (REF) | payer OTHER, SELFPAY ==
--- NOTE | ~2021-10-31 | US_ITS ---
EXAMINATION: US COMPLETE ABDOMEN WITH LIVER ELASTOGRAPHY CLINICAL INFORMATION: Hepatitis and fibrosis COMPARISON: Previous CT of the abdomen and pelvis January 2020 abdominal ultrasound June 2020 TECHNIQUE: Real-time imaging of the abdominal viscera. Noninvasive ultrasound liver fibrosis assessment is performed using Jann ElastPQ point quantification shear wave elastography (2D-SWE) with a C5-2 MHz transducer. Multiple elastography samples are obtained. FINDINGS: PANCREAS: Normal. ABDOMINAL AORTA: The proximal, middle, and distal aortic segments are normal in caliber. INFERIOR VENA CAVA: Visualized portions are normal. LIVER: Normal. The liver demonstrates normal size, contour and echogenicity. There is a 5 mm calcification in the right lobe. No other focal lesion or intrahepatic biliary duct dilatation. The right lobe measures 13.0 cm in length. The left lobe measures 8.5 cm in length. Portal flow is normal/hepatopedal. Shear wave liver elastography median stiffness is 1.4 m/s (reference: normal median stiffness is 1.3 m/s or less). IQR/median stiffness to assess sampling precision is 0.05 (reference: good quality data set is IQR/median stiffness of 0.15 or less). GALLBLADDER: There is a gallstone in the gallbladder. The gallbladder is normal in size. The gallbladder wall is normal. COMMON BILE DUCT: Normal in caliber measuring 0.3 cm in diameter. RIGHT KIDNEY: There is a 5 mm stone in the midpole. No hydronephrosis. No focal parenchymal lesions. The kidney measures 9.5 cm in maximum dimension. LEFT KIDNEY: There is a 1.2 x 1.2 x 0.7 cm cyst with small focus of wall calcification versus milk of calcium cyst. No hydronephrosis. No renal calculi. The kidney measures 10.4 cm in maximum dimension. SPLEEN: Normal. The spleen measures 10.0 cm in maximum dimension. FREE FLUID: None. US/US abdomen comp w elastography IMPRESSION: 1. Small echogenic focus in the right lobe of the liver, question representing a calcification. Gallstone. Right renal stone. Left renal cyst. 2. Liver elastography: Adequate liver sampling. In the absence of other known clinical signs, rules out compensated advanced chronic liver disease. REFERENCE: Society of Radiologists in Ultrasound Liver Stiffness Thresholds (2019): LIVER STIFFNESS THRESHOLDS: *Liver Stiffness equal or less than 1.3 m/s: High probability of being normal. *Liver Stiffness less than 1.7 m/s: In the absence of other known clinical signs, rules out compensated advanced chronic liver disease. *Liver Stiffness 1.7-2.1 m/s: Suggestive of compensated advanced chronic liver disease but need further test for confirmation. *Liver Stiffness over 2.1 m/s: Rules in compensated advanced chronic liver disease. *Liver Stiffness over 2.4 m/s: Suggestive of clinically significant portal hypertension. QUALITY OF DATA SET: *IQR/Median value equal or less than 0.15 implies a quality data set. *IQR/Median value over 0.15 implies a poor quality data set. SIGNIFICANT CHANGE FROM PRIOR EXAM: Significant change if liver stiffness measurement is 10% or greater from prior exam. OTHER CONSIDERATIONS: The stage of liver fibrosis may be overestimated in the setting of acute hepatitis, liver inflammation, elevated liver function tests, hepatic vascular congestion, obstructive cholestasis, non-fasting state, and infiltrative diseases such as amyloidosis and lymphoma. In some patients with NAFLD, the liver stiffness thresholds for compensated advanced chronic liver disease may be lower. In causes other than viral hepatitis and NAFLD, liver stiffness thresholds are not well established.
[2021-10-31 09:09] LABS: MANUAL DIFF FLAG NO
[2021-10-31 09:51] LABS: Basophils Percent Auto 0.6 % (0-2); Eosinophils Absolute Auto 0.1 X10*3/uL (0.0-0.4); Eosinophils Percent Auto 1.3 % (0-4); Hematocrit 38.4 % (37.0-47.0); Hemoglobin 12.6 g/dl (12.0-16.0); Imm Gran Abs Auto 0.01 X10*3/uL (0.00-0.03); Imm Gran Pct Auto 0.2 % (0.0-0.4); Lymphocytes Absolute Auto 1.4 X10*3/uL (1.2-4.9); Lymphocytes Percent Auto 27.3 % (20-40); Mean Corpuscular HGB Conc 32.8 g/dl (31.0-35.0); Mean Corpuscular Hemoglobin 28.8 pg (27.0-33.0); Mean Corpuscular Volume 87.9 fL (80.0-98.0); Mean Platelet Volume 10.3 fL (9.4-12.3); Monocytes Absolute Auto 0.4 X10*3/uL (0.1-1.2); Monocytes Percent Auto 7.1 % (2-11); Neutrophils Absolute Auto 3.3 x10*3/uL (2.0-8.3); Neutrophils Percent Auto 63.5 % (45-73); Platelet Count 211 X10*3/uL (160-400); Red Blood Count 4.37 X10*6/uL (4.20-5.50); Red Cell Distribution Width 13.3 % (11.0-16.0); White Blood Count 5.2 X10*3/uL (4.8-10.8)
[2021-10-31 09:55] LABS: INTERNATIONAL NORM RATIO 1.1 (0.9-1.1); Prothrombin Time 12.1 SEC (9.9-13.0)
[2021-10-31 10:12] LABS: Alanine Aminotransferase 14 U/L (0-31); Albumin Level 4.3 g/dL (3.5-5.0); Alkaline Phosphatase 102 U/L (39-117); Aspartate Amino Transferase 23 U/L (5-31); Bilirubin Direct 0.3 mg/dL (0.0-0.5); Bilirubin Total 0.7 mg/dL (0.0-1.0); Total Protein 7.6 g/dL (6.5-8.0)
[2021-11-02 13:07] LABS: HCV Log PCR <1.18 NOT DETECTED Log IU/mL (NOT DETECTED); HepC Viral Load <15 NOT DETECTED IU/mL (NOT DETECTED)
[2021-11-05 15:26] LABS: FIB-ALT 11 U/L (6-29); FIB-Alpha-2-Macroglobulin 333 mg/dL (106-279); FIB-Apolipoprotein A1 178 mg/dL (101-198); FIB-GGT 15 U/L (3-65); FIB-Haptoglobin 155 mg/dL (43-212); FIB-Total Bilirubin 0.6 mg/dL (0.2-1.2); Liver Fibrosis Stage F1; Nec Inflam Act Grade A0; Nec Inflam Act Score 0.03
[2021-11-06 12:40] LABS: Alpha Fetoprotein 3.1 ng/mL
== END 2021-10-31 07:40 | disposition home or self-care (01) ==
LOC: HO.US 07:39
PROVIDERS: PCP General Practice; Visit Provider Internal Medicine
DX: K74.00 Hepatic fibrosis, unspecified (principal); K80.20 Calculus of gallbladder without cholecystitis without obstruction; N28.1 Cyst of kidney, acquired; Z87.19 Personal history of other diseases of the digestive system; Z90.710 Acquired absence of both cervix and uterus
CPT/HCPCS: 36415; 76705; 76981; 80076; 81596; 82105; 85025; 85610; 87522

== ENCOUNTER 2021-11-19 07:28 | Day surgery (SDC) | payer OTHER, SELFPAY ==
[2021-11-13 13:56] VITALS: BMI 29.9
[2021-11-19 07:45] VITALS: BP 129/69; PULSE 81; RESP 18; TEMP 36.8; O2SAT 96
--- NOTE | 2021-11-19 07:59 | P.CONAN_ITS ---
[facility] Active Problems Active Problems: All Active Problems (Updated 11/13/21 @ 13:37 by Lizzette Adam RN) Primary osteoarthritis of right knee (Acute) Status post appendectomy (Acute) Primary osteoarthritis involving multiple joints (Acute) Past Medical History Medical History Arthritis Depression Hepatitis C Hypertension Liver fibrosis Primary osteoarthritis involving multiple joints Functional capacity: independent ambulation Patient : No Family History Family history of problems with anesthesia: No Surgical History Surgical History H/O colonoscopy H/O: hysterectomy History of liver biopsy Hx of bilateral cataract extraction Hx of shoulder surgery Status post appendectomy History of Problems with Anesthesia: No Social History Social History Household Members: None Housing: Apartment Do you presently have visiting nurse or other home services: Yes Alcohol intake: former Patient Tobacco Use Status: Never used Tobacco Are you DNR?: No Advance Directives: No Advance Directives Information Provided: Yes Patient : No service: No Meds Allergies Allergy/AdvReac Type Severity Reaction Status Date / Time acetaminophen [Tylenol] AdvReac Unknown liver Verified 11/13/21 13:33 disease (told not to take) aspirin AdvReac Unknown liver Verified 11/13/21 13:33 disease (told not to take) ibuprofen [From MOTRIN] AdvReac Unknown liver Verified 11/13/21 13:33 disease (told not to take) Benadryl Allergy Intermediate itching Uncoded 11/13/21 13:33 Active Medications: Current Medications Sodium Biphosphate/Sodium Phosphate (Sodium Phosphate,[place]-Dibasic 133 Ml Enema) 133 ml OK ONCE PRN PRN Reason: Poor Colonoscopy Prep Results Home Medications Medication Instructions Recorded Confirmed Last Taken Type cyclobenzaprine 5 mg tablet 5 mg PO TID PRN 02/05/21 11/13/21 02/04/21 History diclofenac sodium 75 mg 75 mg PO BID PRN 02/05/21 11/13/21 02/04/21 08:00 History tablet,delayed release fluoxetine 20 mg capsule 20 mg PO DAILY 02/05/21 11/13/21 02/04/21 08:00 History hydrochlorothiazide 12.5 mg tablet 12.5 mg PO QAM 02/05/21 11/13/21 02/04/21 History sennosides 8.6 mg tablet (senna) 17.2 mg PO DAILY PRN 02/05/21 11/13/21 02/04/21 History simethicone 125 mg chewable tablet 125 mg PO QID PRN 02/05/21 11/13/21 02/04/21 History trazodone 50 mg tablet 50 mg PO BEDTIME 02/05/21 11/13/21 02/04/21 History Exam Exam Date and Time: November 19, 2021 0750 Height,Weight and Vital Signs: Height 5 ft 2.25 in Weight 74.843 kg Last Vital Signs Temp 98.2 F 11/19/21 07:45 Pulse 81 11/19/21 07:45 Resp 18 11/19/21 07:45 BP 129/69 11/19/21 07:45 Pulse Ox 96 11/19/21 07:45 Airway Mallampati Class: III TM Dist: >3cm Neck ROM: Full Heart: RRR Lungs: CTA Assessment and Plan Final Anesthetic Review Family History of Problems with Anesthesia: No History of Problems with Anesthesia: No ASA Class: II Final Preanesthetic Review: No Changes in Pt Med Stat, Meds/Allgs Chart Reviewed, Consent Obtained/Reviewed and Anes Risks/Benef Reviewed Patient Risk: Low Procedure Risk: Low Anesthetic Plan Anesthetic Plan: MAC: Disposition: Standard PACU
[2021-11-19 10:25] VITALS: BP 124/68; PULSE 86; RESP 16; TEMP 36.7; O2SAT 97
--- NOTE | 2021-11-19 10:27 | PM.OP ---
Brief Operative Note Date of Service: 11/19/21 Pre-op diagnosis: Screening Post-op diagnosis: other (Colon polyp) Procedure: Colonoscopy to the cecum with cold snare polypectomy and placement of 2 Resolution clips Surgeon: Choco Douglas Anesthesia: MAC Was an Sustainability Communicator used for this Procedure?: No Estimated blood loss (mL): 2.0 Pathology: other (A. Colon polyp at 20cm) Condition: stable Disposition: PACU
[2021-11-19 10:40] VITALS: BP 116/56; PULSE 68; RESP 16; TEMP 36.7; O2SAT 97
--- NOTE | 2021-11-19 10:54 | HO.POSTANES ---
Post Anesthesia Evaluation Post Anesthesia Evaluation Vital Signs: Vital Signs Temp Pulse Resp BP Pulse Ox 11/19/21 10:40 98.0 F 68 16 116/56 L 97 11/19/21 10:25 98.0 F 86 16 124/68 97 11/19/21 07:45 98.2 F 81 18 129/69 96 Anesthesia: Monitored Mental Status: Awake Pain Control: Satisfactory Nausea/Vomiting: None Hydration: Adequate Anesthesia-Related Issues: No Anes. Related Issues
--- NOTE | 2021-11-26 11:24 | OP_ITS ---
SURGEON: Choco Douglas MD INDICATIONS: The patient presents for evaluation of colorectal cancer screening. Full consent has been obtained from her for this, including risks of bleeding and perforation. PREOPERATIVE DIAGNOSIS: Colorectal cancer screening. POSTOPERATIVE DIAGNOSIS: PROCEDURE PERFORMED: Colonoscopy to cecum with cold snare polypectomy and placement of 2 Resolution clips. ESTIMATED BLOOD LOSS: COMPLICATIONS: ANESTHESIA: Monitored Anesthesia care. ASSISTANTS: SPECIMENS: POSTOPERATIVE DIAGNOSES: Colorectal cancer screening, colon polyp, diverticulosis and internal hemorrhoids. DESCRIPTION OF PROCEDURE: The patient was placed in the left lateral decubitus position. The digital rectal exam revealed no abnormalities. The Olympus video pediatric colonoscope was entered into the rectum and advanced easily to the cecum. Once in the cecum, I did identify normal-appearing cecal pouch with appendiceal orifice and a normal-appearing ileocecal valve. The entire cecum and ileocecal valve appeared normal. There was transillumination of light deep in the right lower quadrant. The scope was slowly withdrawn assessing all mucosal surfaces carefully. There were changes of some melanosis coli, particularly in the left colon and rectum. There was a mild amount of sigmoid diverticulosis. At 20 cm, there was an approximately 6 mm polyp, which was removed by cold snare polypectomy and recovered by suction. There was some persistent oozing and 2 Resolution clips were applied with good deployment and good hemostasis. I did not visualize any other polyps, colitis, or angiodysplasia. In the rectum, scope was retroflexed visualizing some small internal hemorrhoids, but no other pathology. The rectal mucosa appeared normal. Scope was straightened and withdrawn from the patient. She tolerated the procedure well and was returned to recovery area in stable condition. IMPRESSION: 1. Small colon polyp, status post cold snare polypectomy. 2. Diverticulosis. 3. Internal hemorrhoids. 4. Changes of melanosis coli. PLAN: The results of the pathology will be checked. If this is a tubular adenoma, I would recommend a followup colonoscopy in 5 years. If it is only hyperplastic, I would recommend a followup colonoscopy in 10 years. She was advised to see me again in 1 year for followup of her previous hepatitis C. Recent studies revealed a nondetectable hepatitis C viral load. This has been discussed with her son. MD GABRIEL Irizarry/JAMEY / [id number]
== END 2021-11-19 11:13 | disposition home or self-care (01) ==
PROVIDERS: PCP General Practice; Visit Provider Internal Medicine
PROC: 0DJD8ZZ Inspection of Lower Intestinal Tract, Via Natural or Artificial Opening Endoscopic (ICD-10-PCS; CPT 45378; principal; 2021-11-19 09:10)
DX: Z12.11 Encounter for screening for malignant neoplasm of colon (principal); D12.5 Benign neoplasm of sigmoid colon; K57.30 Diverticulosis of large intestine without perforation or abscess without bleeding; K64.8 Other hemorrhoids; K74.00 Hepatic fibrosis, unspecified; K80.20 Calculus of gallbladder without cholecystitis without obstruction; Z79.899 Other long term (current) drug therapy; Z87.19 Personal history of other diseases of the digestive system
CPT/HCPCS: 45385; 88305

== ENCOUNTER → 2022-05-30 10:13 | Outpatient (BNVA) | payer OTHER, SELFPAY | PROVIDERS: PCP General Practice; Visit Provider Nurse Practitioner Family | DX: M17.11 Unilateral primary osteoarthritis, right knee (principal) | CPT/HCPCS: 99212 ==

== ENCOUNTER 2022-05-31 09:57 | Outpatient (REF) | payer OTHER, SELFPAY ==
--- NOTE | ~2022-05-31 | XR_ITS ---
EXAMINATION: XR KNEE, RIGHT CLINICAL INFORMATION: Osteoarthritis COMPARISON: Previous x-ray January 2015 TECHNIQUE: 3 views of the right knee. FINDINGS: Bone alignment is normal. No fracture or dislocation. Small osteophytes at the patellofemoral joint. Small osteophyte at the quadriceps tendon insertion to the patella. No joint effusion. XR/XR knee RT 3V IMPRESSION: Mild degenerative changes at the patellofemoral joint.
== END 2022-05-31 09:58 | disposition home or self-care (01) ==
LOC: HO.XRAY 09:57
PROVIDERS: PCP General Practice; Visit Provider Nurse Practitioner Family
DX: M17.11 Unilateral primary osteoarthritis, right knee (principal)
CPT/HCPCS: 73562

== ENCOUNTER 2022-06-14 09:30 | Outpatient (REF) | payer OTHER, SELFPAY ==
--- NOTE | ~2022-06-14 | XR_ITS ---
EXAMINATION: KNEE X-RAY CLINICAL INFORMATION: Pain COMPARISON: Previous right knee x-ray May 2022 TECHNIQUE: Standing AP view of both knees and lateral and sunrise view of the right knee FINDINGS: Right: Bone alignment is normal. No fracture or dislocation. Normal femoral tibial joints. Small osteophytes at the patellofemoral joint. No joint effusion. Standing AP view of the left knee is unremarkable. XR/XR knee standing BI IMPRESSION: Mild arthritis at the right patellofemoral joint.
--- NOTE | ~2022-06-14 | XR_ITS ---
EXAMINATION: KNEE X-RAY CLINICAL INFORMATION: Pain COMPARISON: Previous right knee x-ray May 2022 TECHNIQUE: Standing AP view of both knees and lateral and sunrise view of the right knee FINDINGS: Right: Bone alignment is normal. No fracture or dislocation. Normal femoral tibial joints. Small osteophytes at the patellofemoral joint. No joint effusion. Standing AP view of the left knee is unremarkable. XR/XR knee RT 2V IMPRESSION: Mild arthritis at the right patellofemoral joint.
== END 2022-06-14 09:31 | disposition home or self-care (01) ==
LOC: HO.HOSX 09:30
PROVIDERS: Visit Provider Orthopaedic Surgery
DX: M25.561 Pain in right knee (principal)
CPT/HCPCS: 20610; 73560; 73565; 99212; J1100

== ENCOUNTER 2022-08-23 09:29 | Outpatient (REF) | payer OTHER, SELFPAY ==
--- NOTE | ~2022-08-23 | MM_ITS ---
EXAMINATION: MM SCREENING DIGITAL BREAST TOMOSYNTHESIS, BILATERAL CLINICAL INFORMATION: Screening. Asymptomatic. The lifetime risk of breast cancer based on the Tyrer-Cuzick Model is 4%. COMPARISON: Mammography: 08/20/2021, 08/14/2020,07/01/2019 TECHNIQUE: Digital breast tomosynthesis is performed in both the craniocaudal and mediolateral oblique views along with computer-aided detection (CAD). Synthesized 2D images are generated from the tomosynthesis. FINDINGS: There are scattered areas of fibroglandular density (ACR BI-RADS breast composition Category b). There are no significant masses, abnormal calcifications, or other abnormalities. Parenchymal pattern is similar to prior studies. There is no developing density or architectural abnormality. The axilla and skin contours are unremarkable. No significant changes. MM/MM tomosynthesis screening BI IMPRESSION: No mammographic evidence of malignancy. ASSESSMENT: BI-RADS 1: Negative RECOMMENDATION: Routine annual mammography screening. This patient's information was entered into a reminder system with a target due date for their next mammogram.
== END 2022-08-23 09:30 | disposition home or self-care (01) ==
LOC: HO.MAMMO 09:29
PROVIDERS: PCP General Practice; Visit Provider General Practice
DX: Z12.31 Encounter for screening mammogram for malignant neoplasm of breast (principal)
CPT/HCPCS: 77063; 77067

== ENCOUNTER → 2022-09-12 09:57 | Outpatient (BNVA) | payer OTHER, SELFPAY | PROVIDERS: PCP General Practice; Visit Provider Orthopaedic Surgery | DX: M17.11 Unilateral primary osteoarthritis, right knee (principal) | CPT/HCPCS: 20610; 99212; J1100 ==

== ENCOUNTER 2022-11-29 07:32 | Outpatient (REF) | payer OTHER, SELFPAY ==
--- NOTE | ~2022-11-29 | US_ITS ---
EXAMINATION: US COMPLETE ABDOMEN WITH LIVER ELASTOGRAPHY CLINICAL INFORMATION: Chronic hepatitis C. COMPARISON: None available. TECHNIQUE: Real-time imaging of the abdominal viscera. Noninvasive ultrasound liver fibrosis assessment is performed using Jann ElastPQ point quantification shear wave elastography (2D-SWE) with a C5-2 MHz transducer. Multiple elastography samples are obtained. FINDINGS: PANCREAS: Normal. The visualized pancreatic head and body are normal in appearance. The remainder of the pancreas is obscured from visualization by the overlying bowel gas. ABDOMINAL AORTA: The proximal, middle, and distal aortic segments are normal in caliber. INFERIOR VENA CAVA: Visualized portions are normal. LIVER: The liver demonstrates normal size, contour and echogenicity. There is a focal calcification right hepatic lobe measuring 0.4 x 0.4 x 0.4 cm. No focal lesion or intrahepatic biliary duct dilatation. The right lobe measures 11.4 cm in length. The left lobe measures 8.9 cm in length. Portal flow is hepatopetal. Shear wave liver elastography median stiffness is 1.39 m/s (reference: normal median stiffness is 1.3 m/s or less). IQR/median stiffness to assess sampling precision is 0.2 (reference: good quality data set is IQR/median stiffness of 0.15 or less). GALLBLADDER: There are numerous echogenic gallstones with acoustic shadowing. The gallbladder wall thickness measures 0.3 cm. No tenderness in right upper quadrant. COMMON BILE DUCT: Normal in caliber measuring 0.8 cm in diameter. RIGHT KIDNEY: There is echogenic stone in midpole measuring 0.4 x 0.2 x 0.3 cm. No hydronephrosis. No renal calculi or focal parenchymal lesions. The kidney measures 9.0 cm in maximum dimension. LEFT KIDNEY: There is an echogenic stone in midpole measuring 0.4 x 0.3 x 0.4 cm. No hydronephrosis. No renal calculi or focal parenchymal lesions. The kidney measures 10.7 cm in maximum dimension. SPLEEN: Normal. The spleen measures 9.5 cm in maximum dimension. FREE FLUID: None. US/US abdomen comp w elastography IMPRESSION: 1. Bilateral nonobstructive echogenic renal calculi. 2. Cholelithiasis without wall thickening. 3. Liver elastography: Median liver stiffness measures 1.39 m/s corresponding to cACLD (ruled out). REFERENCE: Society of Radiologists in Ultrasound Liver Stiffness Thresholds (2020): LIVER STIFFNESS THRESHOLDS: *Liver Stiffness equal or less than 1.3 m/s: High probability of being normal. *Liver Stiffness less than 1.7 m/s: In the absence of other known clinical signs, rules out compensated advanced chronic liver disease. *Liver Stiffness 1.7-2.1 m/s: Suggestive of compensated advanced chronic liver disease but need further test for confirmation. *Liver Stiffness over 2.1 m/s: Rules in compensated advanced chronic liver disease. *Liver Stiffness over 2.4 m/s: Suggestive of clinically significant portal hypertension. QUALITY OF DATA SET: *IQR/Median value equal or less than 0.15 implies a quality data set. *IQR/Median value over 0.15 implies a poor quality data set. SIGNIFICANT CHANGE FROM PRIOR EXAM: Significant change if liver stiffness measurement is 10% or greater from prior exam. OTHER CONSIDERATIONS: The stage of liver fibrosis may be overestimated in the setting of acute hepatitis, liver inflammation, elevated liver function tests, hepatic vascular congestion, obstructive cholestasis, non-fasting state, and infiltrative diseases such as amyloidosis and lymphoma. In some patients with NAFLD, the liver stiffness thresholds for compensated advanced chronic liver disease may be lower. In causes other than viral hepatitis and NAFLD, liver stiffness thresholds are not well established.
[2022-11-29 08:23] LABS: MANUAL DIFF FLAG NO
[2022-11-29 08:26] LABS: Basophils Percent Auto 0.4 % (0-2); Eosinophils Absolute Auto 0.1 X10*3/uL (0.0-0.4); Eosinophils Percent Auto 2.1 % (0-4); Hematocrit 39.1 % (37.0-47.0); Hemoglobin 12.8 g/dl (12.0-16.0); Imm Gran Abs Auto 0.02 X10*3/uL (0.00-0.03); Imm Gran Pct Auto 0.4 % (0.0-0.4); Lymphocytes Absolute Auto 1.4 X10*3/uL (1.2-4.9); Lymphocytes Percent Auto 26.6 % (20-40); Mean Corpuscular HGB Conc 32.7 g/dl (31.0-35.0); Mean Corpuscular Hemoglobin 29.2 pg (27.0-33.0); Mean Corpuscular Volume 89.1 fL (80.0-98.0); Mean Platelet Volume 9.6 fL (9.4-12.3); Monocytes Absolute Auto 0.4 X10*3/uL (0.1-1.2); Monocytes Percent Auto 8.2 % (2-11); Neutrophils Absolute Auto 3.3 x10*3/uL (2.0-8.3); Neutrophils Percent Auto 62.3 % (45-73); Platelet Count 227 X10*3/uL (160-400); Red Blood Count 4.39 X10*6/uL (4.20-5.50); Red Cell Distribution Width 13.2 % (11.0-16.0); White Blood Count 5.3 X10*3/uL (4.8-10.8)
[2022-11-29 08:36] LABS: Prothrombin Time 11.2 SEC (10.0-13.1)
[2022-11-29 08:51] LABS: Alanine Aminotransferase 13 U/L (0-31); Albumin Level 4.3 g/dL (3.5-5.0); Alkaline Phosphatase 114 U/L (39-117); Aspartate Amino Transferase 22 U/L (5-31); Bilirubin Direct 0.2 mg/dL (0.0-0.5); Bilirubin Total 0.7 mg/dL (0.0-1.0); Total Protein 7.6 g/dL (6.5-8.0)
[2022-12-03 14:19] LABS: HCV Log PCR <1.18 NOT DETECTED Log IU/mL (NOT DETECTED); HepC Viral Load <15 NOT DETECTED IU/mL (NOT DETECTED)
[2022-12-06 00:24] LABS: FIB-ALT 10 U/L (6-29); FIB-Alpha-2-Macroglobulin 355 mg/dL (106-279); FIB-Apolipoprotein A1 186 mg/dL (101-198); FIB-GGT 22 U/L (3-65); FIB-Haptoglobin 164 mg/dL (43-212); FIB-Total Bilirubin 0.5 mg/dL (0.2-1.2); Liver Fibrosis Score 0.31; Liver Fibrosis Stage F1-F2; Nec Inflam Act Grade A0; Nec Inflam Act Score 0.03
[2022-12-10 13:38] LABS: Alpha Fetoprotein 2.5 ng/mL
== END 2022-11-29 07:33 | disposition home or self-care (01) ==
LOC: HO.US 07:32
PROVIDERS: PCP General Practice; Visit Provider Internal Medicine
DX: K74.00 Hepatic fibrosis, unspecified (principal); B18.2 Chronic viral hepatitis C; Z87.19 Personal history of other diseases of the digestive system
CPT/HCPCS: 36415; 76705; 76981; 80076; 81596; 82105; 85025; 85610; 87522

== ENCOUNTER → 2023-01-10 09:27 | Outpatient (BNVA) | payer OTHER, SELFPAY | PROVIDERS: PCP General Practice; Visit Provider Orthopaedic Surgery | DX: M17.11 Unilateral primary osteoarthritis, right knee (principal) | CPT/HCPCS: 20610; 99212; J1100 ==

== ENCOUNTER 2023-06-05 08:12 | Outpatient (REF) | payer OTHER, SELFPAY ==
[2023-06-05 11:35] LABS: Estimated Average Glucose 123 mg/dL; Hemoglobin A1c % 5.9 % (<6.0)
[2023-06-05 11:41] LABS: Alanine Aminotransferase 11 U/L (0-31); Albumin Level 4.1 g/dL (3.5-5.0); Alkaline Phosphatase 106 U/L (39-117); Anion Gap 13 (12-20); Aspartate Amino Transferase 22 U/L (5-31); Bilirubin Total 0.6 mg/dL (0.0-1.0); Blood Urea Nitrogen 9 mg/dL (9-16); Calcium 9.5 mg/dL (8.4-10.2); Carbon Dioxide 28 mmol/L (22-29); Chloride 106 mmol/L (96-108); Cholesterol 219 mg/dL (<200); Estimated Glomerular Filt Rate > 60; Glucose Random 102 mg/dL (60-115); HDL Cholesterol 61 mg/dL (>40); LDL Cholesterol Calculated 136 mg/dL (<100); Potassium 4.8 mmol/L (3.3-5.1); Sodium 142 mmol/L (135-145); Total Protein 7.9 g/dL (6.5-8.0); Triglycerides 111 mg/dL (<150)
== END 2023-06-05 08:13 | disposition home or self-care (01) ==
LOC: HO.HHCL 08:12
PROVIDERS: Visit Provider General Practice
DX: Z00.00 Encounter for general adult medical examination without abnormal findings (principal); R73.03 Prediabetes; R73.01 Impaired fasting glucose; Z91.89 Other specified personal risk factors, not elsewhere classified
CPT/HCPCS: 36415; 80053; 80061; 83036

== ENCOUNTER 2023-08-20 10:25 | Outpatient (AMB) | payer OTHER, SELFPAY ==
[2023-08-20 10:41] VITALS: BP 116/78; PULSE 88; TEMP 36.3; O2SAT 95; BMI 33.1
--- NOTE | 2023-08-20 10:41 | A.OFFVIS_ITS ---
Intake Vital Signs 08/20/23 10:41 Height 5 ft 2.5 in Weight 183 lb 10.321 oz BMI 33.1 BP 116/78 Blood Pressure Location Lt brachial Position Sitting Pulse 88 Pulse Source Pulse Oximeter Temp 97.3 F Temp Source Skin Pulse Oximetry (%) 95 Oxygen Delivery Method Room Air Intake Visit Reasons: Arthralgia of both hands Intake Note: Established patient presents today for joint pain consult. Last seen by Anna Orellana 05/30/22. 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 Helper Name: Jomar [id number] Information Interpreted: clinical only Accompanied by: Self / Same As Patient Allergies acetaminophen [Tylenol] Adverse Reaction (Unknown, Verified 08/20/23 10:46) liver disease (told not to take) aspirin Adverse Reaction (Unknown, Verified 08/20/23 10:46) liver disease (told not to take) ibuprofen [From MOTRIN] Adverse Reaction (Unknown, Verified 08/20/23 10:46) liver disease (told not to take) Benadryl Allergy (Intermediate, Uncoded 08/20/23 10:46) itching Medication List - Last Reconciled 08/20/23 by Marcel Veliz MD cyclobenzaprine 5 mg PO TID PRN diclofenac sodium 75 mg PO BID PRN fluoxetine 20 mg PO DAILY gabapentin 300 mg PO BEDTIME hydrochlorothiazide 12.5 mg PO QAM sennosides (senna) 17.2 mg PO DAILY PRN simethicone 125 mg PO QID PRN trazodone 50 mg PO BEDTIME HPI HPI Comments History of Present Illness Details 62-year-old female with generalized oste oarthritis returns for follow- up. Patient has known right knee osteoarthritis and she received multiple corticosteroid injections. Most recently by Orthopedics 6 months ago. With some relief. She also has pain in her lower back, towards the right, radiating posteriorly towards her right knee. She mentioned that she received steroid injections in her lower back a few years ago which provided some relief. She also has pain in both fingers. The most troublesome however is the base of both thumbs, worse on the right. [facility] Medical History Arthritis Depression Liver fibrosis Hepatitis C Hypertension Primary osteoarthritis involving multiple joints Surgical History Hx of bilateral cataract extraction Hx of shoulder surgery H/O colonoscopy History of liver biopsy Status post appendectomy H/O: hysterectomy Social History Household Members: None Housing: Apartment Do you presently have visiting nurse or other home services: Yes Alcohol intake: former Patient Tobacco Use Status: Never used Tobacco service: No Current occupational status: disabled Female Reproductive History Menstrual Total pregnancies: 4 Review of Systems Musc Reports back pain, Reports arthralgias, Reports radiating pain into limb and Reports stiffness Physical Exam Vital Signs: Last Vital Signs Temp 97.3 F 08/20/23 10:41 Pulse 88 08/20/23 10:41 BP 116/78 08/20/23 10:41 Pulse Ox 95 08/20/23 10:41 Oxygen Delivery Method Room Air 08/20/23 10:41 BMI result Body Mass Index 33.1 Const General: cooperative, healthy appearing and comfortable Nutritional Appearance: obese Orientation/consciousness: patient oriented x3 Limitations: ambulation with cane HEENT Head: Yes normocephalic and Yes atraumatic Mouth: moist mucous membranes Resp Effort & Inspection: normal respiratory effort and able to speak in complete sentences Skin General skin exam: no rashes or lesions noted Neuro General: patient oriented x3 Extrem Other: Osteoarthritic changes of both hands with prominent Heberden's and Helder's nodes Nontender Bilateral 1st CMC joint tenderness, worse on the right Positive straight leg raise test on the right No trochanteric bursa area tenderness bilaterally Right knee pain with flexion and extension Assessment & Plan Assessment & Plan (1) Osteoarthritis of hands, bilateral: Code(s): M19.041 - Primary osteoarthritis, right hand; M19.042 - Primary osteoarthritis, left hand Qualifiers: Osteoarthritis type: primary Qualified Code(s): M19.041 - Primary osteoarthritis, right hand; M19.042 - Primary osteoarthritis, left hand Plan: This is a 62-year-old female with generalized osteoarthritis who presents for follow-up. Upon evaluation, I do not see any signs suggestive of an autoimmune rheumatic disease. Discussed different treatment strategies for different areas of osteoarthritis. With regards to her hands. I suggested applying OTC Voltaren gel on 1st CMC rich int, 4 times a day. Patient is not interested in occupational therapy or injections. Follow-up as needed (2) Lumbar radiculopathy, right: Code(s): M54.16 - Radiculopathy, lumbar region Plan: Seems to be most symptomatic today. Patient states that she received epidural injections 4-5 years ago which have helped. Referred patient to pain management. Advised patient to try using [id number] Salonpas patches (3) Primary osteoarthritis of right knee: Code(s): M17.11 - Unilateral primary osteoarthritis, right knee Plan: Gets knee injections periodically. Most recent injection 12/2022 by Orthopedics was helpful. Patient not interested in another injection today Plan I spent 25 minutes reviewing patient's chart, evaluating patient, placing orders, counseling patient and documenting in the chart Orders: Referrals Pain Management Referral M54.16 - Radiculopathy, lumbar region Coding Level of Care Code Est Pt Level 4 (93372) Diagnoses Primary osteoarthritis of both hands M19.041; M19.042 Osteoarthritis type: primary Lumbar radiculopathy, right M54.16 Primary osteoarthritis of right knee M17.11
== END 2023-08-20 11:09 | disposition home or self-care (01) ==
LOC: HO.RHE 10:25
PROVIDERS: PCP General Practice; Visit Provider Student in an Organized Health Care Education/Training Program
DX: M19.041 Primary osteoarthritis, right hand (principal); M19.042 Primary osteoarthritis, left hand; M54.16 Radiculopathy, lumbar region; M17.11 Unilateral primary osteoarthritis, right knee
CPT/HCPCS: 99214

== ENCOUNTER → 2023-08-20 10:25 | Outpatient (BNVA) | payer OTHER, SELFPAY | PROVIDERS: PCP General Practice; Visit Provider Student in an Organized Health Care Education/Training Program | DX: M19.041 Primary osteoarthritis, right hand (principal); M19.042 Primary osteoarthritis, left hand; M17.11 Unilateral primary osteoarthritis, right knee; M54.16 Radiculopathy, lumbar region | CPT/HCPCS: 99212 ==

== ENCOUNTER 2023-08-29 09:37 | Outpatient (REF) | payer OTHER, SELFPAY | END 2023-08-29 09:38 | disposition home or self-care (01) | LOC: HO.MAMMO 09:37 | PROVIDERS: PCP General Practice; Visit Provider General Practice | DX: Z12.31 Encounter for screening mammogram for malignant neoplasm of breast (principal) | CPT/HCPCS: 77063; 77067 ==

== ENCOUNTER → 2023-08-29 10:00 | Outpatient (BNV) | payer OTHER, SELFPAY | PROVIDERS: PCP General Practice; Visit Provider Radiology Diagnostic Radiology | DX: Z12.31 Encounter for screening mammogram for malignant neoplasm of breast (principal) | CPT/HCPCS: 77063; 77067 ==

== ENCOUNTER 2023-11-14 07:13 | Outpatient (REF) | payer OTHER, SELFPAY ==
--- NOTE | ~2023-11-14 | US_ITS ---
EXAMINATION: US COMPLETE ABDOMEN WITH LIVER ELASTOGRAPHY CLINICAL INFORMATION: Chronic hepatitis. Evaluate for liver fibrosis. COMPARISON: Liver elastography from 11/29/2022. Abdomen CT from 02/05/2021. TECHNIQUE: Real-time imaging of the abdominal viscera. Noninvasive ultrasound liver fibrosis assessment is performed using Jann ElastPQ point quantification shear wave elastography (2D-SWE) with a C5-2 MHz transducer. Multiple elastography samples are obtained. FINDINGS: PANCREAS: Normal. ABDOMINAL AORTA: The proximal, middle, and distal aortic segments are normal in caliber. INFERIOR VENA CAVA: Visualized portions are normal. LIVER: Liver has normal size and contour. No intrahepatic ductal dilatation. A small 0.5 cm echogenic focus in the liver appears to represent a calcification. No evidence of liver mass. The right lobe measures 14.5 cm in length. The left lobe measures 10.6 cm in length. Portal flow is normal Shear wave liver elastography median stiffness is 1.43 m/s (reference: normal median stiffness is 1.3 m/s or less). IQR/median stiffness to assess sampling precision is 0.10 (reference: good quality data set is IQR/median stiffness of 0.15 or less). GALLBLADDER: Gallbladder is physiologically distended. Cholelithiasis is evident. No gallbladder wall thickening or pericholecystic fluid. COMMON BILE DUCT: Normal in caliber measuring 0.5 cm in diameter. RIGHT KIDNEY: The kidney measures 9.6 cm in length. A 0.3 cm echogenic focus in the interpolar area appears to represent a small calyceal stone (image 84 of 132). No hydronephrosis. LEFT KIDNEY: The kidney measures 10.8 cm in length. 0.5 cm echogenic focus in the renal cortex is probably related to proteinaceous debris within an old small cortical cyst. No renal imaging follow-up recommended. No nephrolithiasis or hydronephrosis. SPLEEN: Normal. The spleen measures 9.5 cm in maximum dimension. FREE FLUID: None. US/US abdomen comp w elastography IMPRESSION: * The liver has normal parenchymal echotexture. No suspicious liver lesion. * Shear wave liver elastography reveals a median stiffness of 1.43 m/s (compared to 1.39 m/s on 11/29/2022). In the absence of other known clinical signs, this rules out compensated advanced chronic liver disease. * There appears to be a small calyceal stone of the right kidney. REFERENCE: Society of Radiologists in Ultrasound Liver Stiffness Thresholds (2020): LIVER STIFFNESS THRESHOLDS: *Liver Stiffness equal or less than 1.3 m/s: High probability of being normal. *Liver Stiffness less than 1.7 m/s: In the absence of other known clinical signs, rules out compensated advanced chronic liver disease. *Liver Stiffness 1.7-2.1 m/s: Suggestive of compensated advanced chronic liver disease but need further test for confirmation. *Liver Stiffness over 2.1 m/s: Rules in compensated advanced chronic liver disease. *Liver Stiffness over 2.4 m/s: Suggestive of clinically significant portal hypertension. QUALITY OF DATA SET: *IQR/Median value equal or less than 0.15 implies a quality data set. *IQR/Median value over 0.15 implies a poor quality data set. SIGNIFICANT CHANGE FROM PRIOR EXAM: Significant change if liver stiffness measurement is 10% or greater from prior exam. OTHER CONSIDERATIONS: The stage of liver fibrosis may be overestimated in the setting of acute hepatitis, liver inflammation, elevated liver function tests, hepatic vascular congestion, obstructive cholestasis, non-fasting state, and infiltrative diseases such as amyloidosis and lymphoma. In some patients with NAFLD, the liver stiffness thresholds for compensated advanced chronic liver disease may be lower. In causes other than viral hepatitis and NAFLD, liver stiffness thresholds are not well established.
== END 2023-11-14 07:14 | disposition home or self-care (01) ==
LOC: HO.US 07:13
PROVIDERS: PCP General Practice; Visit Provider Internal Medicine
DX: K74.00 Hepatic fibrosis, unspecified (principal); Z87.19 Personal history of other diseases of the digestive system
CPT/HCPCS: 36415; 76700; 76981; 80076; 81596; 82105; 85025; 85610; 87522

== ENCOUNTER 2023-11-14 08:25 | Outpatient (REF) | payer OTHER, SELFPAY ==
[2023-11-14 08:47] LABS: MANUAL DIFF FLAG NO
[2023-11-14 08:51] LABS: Basophils Percent Auto 0.5 % (0-2); Eosinophils Absolute Auto 0.1 X10*3/uL (0.0-0.4); Eosinophils Percent Auto 2.2 % (0-4); Hematocrit 39.9 % (37.0-47.0); Hemoglobin 12.9 g/dl (12.0-16.0); Imm Gran Abs Auto 0.02 X10*3/uL (0.00-0.03); Imm Gran Pct Auto 0.3 % (0.0-0.4); Lymphocytes Absolute Auto 1.2 X10*3/uL (1.2-4.9); Lymphocytes Percent Auto 20.8 % (20-40); Mean Corpuscular HGB Conc 32.3 g/dl (31.0-35.0); Mean Corpuscular Volume 86.6 fL (80.0-98.0); Mean Platelet Volume 9.6 fL (9.4-12.3); Monocytes Absolute Auto 0.6 X10*3/uL (0.1-1.2); Monocytes Percent Auto 10.6 % (2-11); Neutrophils Absolute Auto 3.9 x10*3/uL (2.0-8.3); Neutrophils Percent Auto 65.6 % (45-73); Platelet Count 236 X10*3/uL (160-400); Red Blood Count 4.61 X10*6/uL (4.20-5.50); White Blood Count 5.9 X10*3/uL (4.8-10.8)
[2023-11-14 08:58] LABS: Prothrombin Time 12.1 SEC (11.1-13.3)
[2023-11-14 09:07] LABS: Alanine Aminotransferase 17 U/L (0-31); Albumin Level 4.2 g/dL (3.5-5.0); Alkaline Phosphatase 119 U/L (39-117); Aspartate Amino Transferase 28 U/L (5-31); Bilirubin Direct 0.2 mg/dL (0.0-0.5); Bilirubin Total 0.4 mg/dL (0.0-1.0); Total Protein 8.2 g/dL (6.5-8.0)
[2023-11-17 13:02] LABS: Alpha Fetoprotein 2.4 ng/mL
[2023-11-17 14:03] LABS: HCV Log PCR <1.18 NOT DETECTED Log IU/mL (NOT DETECTED); HepC Viral Load <15 NOT DETECTED IU/mL (NOT DETECTED)
[2023-11-22 18:43] LABS: FIB-ALT 17 U/L (6-29); FIB-Alpha-2-Macroglobulin 323 mg/dL (106-279); FIB-Apolipoprotein A1 192 mg/dL (101-198); FIB-GGT 26 U/L (3-65); FIB-Haptoglobin 220 mg/dL (43-212); FIB-Total Bilirubin 0.4 mg/dL (0.2-1.2); Liver Fibrosis Score 0.22; Liver Fibrosis Stage F0-F1; Nec Inflam Act Grade A0; Nec Inflam Act Score 0.05
== END 2023-11-14 08:26 | disposition home or self-care (01) ==
LOC: HO.LAB 08:25
PROVIDERS: PCP General Practice; Visit Provider Internal Medicine
DX: Z13.89 Encounter for screening for other disorder (principal)
CPT/HCPCS: 36415; 80076; 81596; 82105; 85025; 85610; 87522

== ENCOUNTER → 2023-11-17 14:13 | Outpatient (BNVA) | payer OTHER, SELFPAY | PROVIDERS: PCP General Practice; Referring Provider Internal Medicine; Visit Provider Surgery | DX: K80.20 Calculus of gallbladder without cholecystitis without obstruction (principal) | CPT/HCPCS: 99212 ==

== ENCOUNTER 2023-11-17 14:14 | Outpatient (AMB) | payer OTHER, SELFPAY ==
--- NOTE | 2023-11-17 14:16 | MHC.OFFVIS ---
Vital Signs 11/17/23 14:24 Height 5 ft 2.5 in Weight 181 lb BMI 32.6 BP 134/70 Blood Pressure Location Rt brachial Position Sitting Pulse 77 Intake Visit Reasons: Gallstones Intake Note: This patient presents for an assessment for gallstones. Pt c/o; reports RUQ pain, reports no nausea or vomiting. 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 Accompanied by: Other Relationship Allergies acetaminophen [Tylenol] Adverse Reaction (Unknown, Verified 11/17/23 14:26) liver disease (told not to take) aspirin Adverse Reaction (Unknown, Verified 11/17/23 14:26) liver disease (told not to take) ibuprofen [From MOTRIN] Adverse Reaction (Unknown, Verified 11/17/23 14:) liver disease (told not to take) Benadryl Allergy (Intermediate, Uncoded 11/17/23 14:) itching Medication List - Last Reconciled 11/17/23 by Joey Kerns MD cyclobenzaprine 5 mg PO TID PRN diclofenac sodium 75 mg PO BID PRN fluoxetine 20 mg PO DAILY gabapentin 300 mg PO BEDTIME hydrochlorothiazide 12.5 mg PO QAM sennosides (senna) 17.2 mg PO DAILY PRN simethicone 125 mg PO QID PRN trazodone 50 mg PO BEDTIME HPI HPI Gallstones: Details: 62 year old female referred for gallstones. She has had multiple liver elastography and CT scans in the past showing gallstones. She actually undergoes liver elastography every year because of her history of hepatitis C. Otherwise she says she really does not have significant right upper quadrant pain. She has good oral intake. She denies GI complaints. She also has a history of appendectomy via a midline incision in 2020. She had significant adhesions at that time from a previous hysterectomy. PFSH Medical History Gallstones Arthritis Depression Liver fibrosis Hepatitis C Hypertension Primary osteoarthritis involving multiple joints Surgical History Hx of bilateral cataract extraction Hx of shoulder surgery H/O colonoscopy History of liver biopsy Status post appendectomy H/O: hysterectomy Social History (Reviewed 04/22/24 @ 14:26 by Bernice Aguila Alec Household Members: None Housing: Apartment Do you presently have visiting nurse or other home services: Yes Alcohol intake: former Patient Tobacco Use Status: Never used Tobacco service: No Current occupational status: disabled Review of Systems Const Denies chills and Denies fever(s) Card Denies chest pain, Denies dyspnea and Denies dyspnea on exertion Resp Denies cough, Denies dyspnea and Denies dyspnea on exertion GI Denies hematochezia and Denies change in bowel habits Denies hematuria Musc Denies back pain and Denies limited range of motion Neuro Denies focal weakness and Denies convulsions Psych Denies depression and Denies mood swings Physical Exam Vital Signs: Last Vital Signs Pulse 77 11/17/23 14:24 BP 134/70 11/17/23 14:24 BMI result Body Mass Index 32.6 Const General: comfortable and no acute distress Orientation/consciousness: patient oriented x3 Neck Neck: Yes no lymphadenopathy Resp Auscultation: clear to auscultation bilaterally Cardio Rhythm: regular rhythm GI Palpation (GI): Soft to palpation, nontender and no guarding Neuro General: patient oriented x3 Assessment & Plan Assessment & Plan (1) Gallstones: Code(s): K80.20 - Calculus of gallbladder without cholecystitis without obstruction Category: Medical Plan: She does have gallstones seen on previous ultrasound as well as CT scan I explained the option of proceeding with cholecystectomy. I discussed the technique of laparoscopic cholecystectomy and possible open cholecystectomy. I reviewed the risks including but not limited to bleeding, infections, injury to other organs including bowel, liver and bile duct, retained stones, bile leak, as well as the benefits and alternatives. She says however that she really has had no significant right upper quadrant pain. She wants to hold off on any surgical intervention for now. I did tell her that she should come back to the office once she develops symptoms as cholecystectomy is recommended symptomatic gallstones. She says she understands the above Her daughter was with her during the visit.
[2023-11-17 14:24] VITALS: BP 134/70; PULSE 77; BMI 32.6
== END 2023-11-17 14:36 | disposition home or self-care (01) ==
PROVIDERS: PCP General Practice; Referring Provider Internal Medicine; Visit Provider Surgery
DX: K80.20 Calculus of gallbladder without cholecystitis without obstruction (principal)
CPT/HCPCS: 99214

== ENCOUNTER 2024-03-09 09:47 | Outpatient (REF) | payer OTHER, SELFPAY ==
[2024-03-09 12:17] LABS: Anion Gap 10 (12-20); Blood Urea Nitrogen 19 mg/dL (9-16); Calcium 9.8 mg/dL (8.4-10.2); Carbon Dioxide 28 mmol/L (22-29); Chloride 104 mmol/L (96-108); Estimated Glomerular Filt Rate > 60; Glucose Random 94 mg/dL (60-115); Potassium 4.1 mmol/L (3.3-5.1); Sodium 138 mmol/L (135-145)
[2024-03-09 12:19] LABS: Estimated Average Glucose 123 mg/dL; Hemoglobin A1c % 5.9 % (<6.0)
== END 2024-03-09 09:48 | disposition home or self-care (01) ==
LOC: HO.HHCL 09:47
PROVIDERS: Visit Provider Family Medicine
DX: R35.0 Frequency of micturition (principal); Z13.1 Encounter for screening for diabetes mellitus
CPT/HCPCS: 36415; 80048; 83036

== ENCOUNTER 2024-05-28 10:07 | Outpatient (REF) | payer OTHER, SELFPAY ==
[2024-05-28 11:27] LABS: MANUAL DIFF FLAG NO
[2024-05-28 11:38] LABS: Basophils Percent Auto 0.5 % (0-2); Eosinophils Absolute Auto 0.1 X10*3/uL (0.0-0.4); Eosinophils Percent Auto 1.3 % (0-4); Hematocrit 38.7 % (37.0-47.0); Hemoglobin 12.5 g/dl (12.0-16.0); Imm Gran Abs Auto 0.02 X10*3/uL (0.00-0.03); Imm Gran Pct Auto 0.3 % (0.0-0.4); Lymphocytes Absolute Auto 1.8 X10*3/uL (1.2-4.9); Lymphocytes Percent Auto 28.1 % (20-40); Mean Corpuscular HGB Conc 32.3 g/dl (31.0-35.0); Mean Corpuscular Volume 86.6 fL (80.0-98.0); Mean Platelet Volume 10.3 fL (9.4-12.3); Monocytes Absolute Auto 0.6 X10*3/uL (0.1-1.2); Monocytes Percent Auto 8.9 % (2-11); Neutrophils Absolute Auto 3.8 x10*3/uL (2.0-8.3); Neutrophils Percent Auto 60.9 % (45-73); Platelet Count 234 X10*3/uL (160-400); Red Blood Count 4.47 X10*6/uL (4.20-5.50); Red Cell Distribution Width 13.5 % (11.0-16.0); White Blood Count 6.3 X10*3/uL (4.8-10.8)
[2024-05-28 12:24] LABS: TSH reflex Free T4 2.68 uIU/mL (0.32-4.0)
== END 2024-05-28 10:08 | disposition home or self-care (01) ==
LOC: HO.HHCL 10:07
PROVIDERS: Visit Provider General Practice
DX: G47.20 Circadian rhythm sleep disorder, unspecified type (principal)
CPT/HCPCS: 36415; 84443; 85025

== ENCOUNTER 2024-09-03 09:26 | Outpatient (REF) | payer OTHER, SELFPAY | END 2024-09-03 09:27 | disposition home or self-care (01) | LOC: HO.MAMMO 09:26 | PROVIDERS: PCP General Practice; Visit Provider General Practice | DX: Z12.31 Encounter for screening mammogram for malignant neoplasm of breast (principal) ==

== ENCOUNTER → 2024-09-03 09:45 | Outpatient (BNV) | payer OTHER, SELFPAY | PROVIDERS: PCP General Practice; Visit Provider Internal Medicine | DX: Z12.31 Encounter for screening mammogram for malignant neoplasm of breast (principal) | CPT/HCPCS: 77063; 77067 ==

== ENCOUNTER 2025-03-10 06:45 | Outpatient (REF) | payer OTHER, SELFPAY ==
--- OUTSIDE RECORDS SUMMARY | 2025-03-10 06:48 | XMS_ITS | Patient Health Record ---
Author Organization [facility] Address [address] [place] [address] Care Team Providers Care Tailer Out Name Role Phone Lala Sarah M.D. Primary Care Provider Choco Cruz Unavailable [phone] Allergies No Known Allergies Reason For Referral No Information Medications Medication SIG (Take, Route, Frequency, Duration) Notes Start Date End Date Status Cyclobenzaprine HCl 5 MG 1 tablet Orally Three times a day/ muscle spasms and pain Active FLUoxetine HCl 40 MG 1 capsule Orally Once a day Active Reguloid 0.52 GM 2 capsules with 8 ou nces of liquid Orally once or twice a day for constipation for 30 day(s) 06/04/2023 Active Polyethylene Glycol Active Gabapentin 300 MG 1 capsule Orally Thr ee times a day Active Fish Oil Active Diclofenac 75 1 capsule with food or milk as needed Orally twice a day Active traZODone HCl 50 MG 1 tablet at bedtime Orally Once a day Active Immunizations Vaccine Route Administration Date Status Comme nts Flu vaccine no Preserv 3 and > Unknown 07/31/2015 Admin istered Influenza Unknown 03/28/2018 Administered Influenza Unknown 04/27/2019 Administered Influenza Unknown 05/16/2021 Administered Influenza Unknown 06/20/2020 Refused Influenza Unknown 03/01/2025 Refused Problems Problem Type SNOMED Code ICD Code Onset Dates Problem Status W/U Status Risk Notes Problem 677222458 Encounter for screening for malignant neoplasm of colon (Z12.11) Active confirmed Problem History of adenomatous polyp of colon (843414869) History of adenomatous polyp of colon (Z86.010) Active confirmed Problem Constipation (56290949) Constipation (K59.00) Active confirmed Problem 82551925 Calculus of gallbladder without cholecystitis without obstruction (K80.20) Active confirmed Problem 798031577 Chronic hepatiti s C without hepatic coma (B18.2) Active confirmed Problem 296952875 Elevated liver enzymes (R74.8) Active confirmed Problem Gallstones (915244073) Gallstones (K80.20) Active confirmed Problem RUQ abdominal pain (R10.11) Active confirmed Problem 414205449 History of chronic hepatitis (Z87.19) Active confirmed Problem 191616447 History of chronic active hepatitis (Z86.19) Active confirmed Problem 16183280640028415 Abnormal ultrasound of abdomen (R93.5) Active confirmed Problem Diverticulosis of colon (601869551) Diverticulosis of colon (K57.30) Active confirmed Problem 13820385 Liver fibrosis (K74.00) Active confirmed Vital Signs Temperature 98.2 degrees Fahrenheit 03/01/2025 Blood pressure diastolic 01 mm Hg 03/01/2025 Height 62.25 in 03/01/2025 Blood pressure systolic 001 mm Hg 03/01/2025 Weight 164.2 lbs 03/01/2025 BMI 29.79 kg/m2 03/01/2025 Encounters Encounter Location Date Provider Diagnosis [facility] [address] [place] [phone] 03/01/2025 Choco Douglas Liver fibrosis K74.0 0 ; Encounter for screening for malignant neoplasm of colon Z12.11 ; Gallstones K80.20 ; History of adenomatous polyp of colon Z86.010 ; Chronic hepatitis C without hepatic coma B18.2 and Constipation K59.00 [facility] [address] [place] [address] 05/18/2024 Choco Douglas Constipation K59.00 [facility] [address] [place] [phone] 11/04/2024 Choco Douglas Assessments Encounter Date Diagnosis (ICD Code) Assessment Notes Treatment Notes Treatment Clinical Notes Section Notes 03/01/2025 Encounter for screening for malignant neoplasm of colon (ICD-10 - Z12.11) Repeat colonoscopy in 2026 Overall, John appears quite well. She does not show any signs nor have any symptoms of progressive liver disease. She is not having any new or worrisome GI complaints. Her gallstones remain asymptomatic and I advised them that I would agree with Dr. Kerns that at this point I do not think she requires a cholecystectomy since she is not having any symptoms that I feel are referable to the gallbladder. However, we did review that if she develops any significant and persistent right upper quadrant pain and/or any associated symptoms such as jaundice or fever, she should go to the ER for evaluation. We did review that she will be due for a follow-up colonoscopy in 2026 for further screening. I did advise her to continue her current bowel regimen and healthy diet in regard to keeping her bowel movements regular. I shall schedule her for her yearly ultrasound and the below laboratories including an alpha-fetoprotein level given the theoretical increased risk of hepatoma in regard to the previous history of hepatitis C. If things remain stable I will see her in 1 year for a follow-up visit. I did advise her and her daughter to call in the interim if she has any problems or questions I can be of assistance with. They were both comfortable with this plan. Thank you again for allowing me to participate in John's care. I shall continue to keep you advised of her progress. 03/01/2025 Liver fibrosis (ICD-10 - K74.00) Overall, John appears quite well. She does not show any signs nor have any symptoms of progressive liver disease. She is not having any new or worrisome GI complaints. Her gallstones remain asymptomatic and I advised them that I would agree with Dr. Kerns that at this point I do not think she requires a cholecystectomy since she is not having any symptoms that I feel are referable to the gallbladder. However, we did review that if she develops any significant and persistent right upper quadrant pain and/or any associated symptoms such as jaundice or fever, she should go to the ER for evaluation. We did review that she will be due for a follow-up colonoscopy in 2026 for further screening. I did advise her to continue her current bowel regimen and healthy diet in regard to keeping her bowel movements regular. I shall schedule her for her yearly ultrasound and the below laboratories including an alpha-fetoprotein level given the theoretical increased risk of hepatoma in regard to the previous history of hepatitis C. If things remain stable I will see her in 1 year for a follow-up visit. I did advise her and her daughter to call in the interim if she has any problems or questions I can be of assistance with. They were both comfortable with this plan. Thank you again for allowing me to participate in John's care. I shall continue to keep you advised of her progress. 05/18/2024 Constipation (ICD-10 - K59.00) 03/01/2025 Gallstones (ICD-10 - K80.20) Go to ER if you develop significant right upper abdominal pain from the gallstones Overall, John appears quite well. She does not show any signs nor have any symptoms of progressive liver disease. She is not having any new or worrisome GI complaints. Her gallstones remain asymptomatic and I advised them that I would agree with Dr. Kerns that at this point I do not think she requires a cholecystectomy since she is not having any symptoms that I feel are referable to the gallbladder. However, we did review that if she develops any significant and persistent right upper quadrant pain and/or any associated symptoms such as jaundice or fever, she should go to the ER for evaluation. We did review that she will be due for a follow-up colonoscopy in 2026 for further screening. I did advise her to continue her current bowel regimen and healthy diet in regard to keeping her bowel movements regular. I shall schedule her for her yearly ultrasound and the below laboratories including an alpha-fetoprotein level given the theoretical increased risk of hepatoma in regard to the previous history of hepatitis C. If things remain stable I will see her in 1 year for a follow-up visit. I did advise her and her daughter to call in the interim if she has any problems or questions I can be of assistance with. They were both comfortable with this plan. Thank you again for allowing me to participate in John's care. I shall continue to keep you advised of her progress. 03/01/2025 History of adenomatous polyp of colon (ICD-10 - Z86.010) Overall, John appears quite well. She does not show any signs nor have any symptoms of progressive liver disease. She is not having any new or worrisome GI complaints. Her gallstones remain asymptomatic and I advised them that I would agree with Dr. Kerns that at this point I do not think she requires a cholecystectomy since she is not having any symptoms that I feel are referable to the gallbladder. However, we did review that if she develops any significant and persistent right upper quadrant pain and/or any associated symptoms such as jaundice or fever, she should go to the ER for evaluation. We did review that she will be due for a follow-up colonoscopy in 2026 for further screening. I did advise her to continue her current bowel regimen and healthy diet in regard to keeping her bowel movements regular. I shall schedule her for her yearly ultrasound and the below laboratories including an alpha-fetoprotein level given the theoretical increased risk of hepatoma in regard to the previous history of hepatitis C. If things remain stable I will see her in 1 year for a follow-up visit. I did advise her and her daughter to call in the interim if she has any problems or questions I can be of assistance with. They were both comfortable with this plan. Thank you again for allowing me to participate in John's care. I shall continue to keep you advised of her progress. 03/01/2025 Chronic hepatitis C without hepatic coma (ICD-10 - B18.2) Overall, John appears quite well. She does not show any signs nor have any symptoms of progressive liver disease. She is not having any new or worrisome GI complaints. Her gallstones remain asymptomatic and I advised them that I would agree with Dr. Kerns that at this point I do not think she requires a cholecystectomy since she is not having any symptoms that I feel are referable to the gallbladder. However, we did review that if she develops any significant and persistent right upper quadrant pain and/or any associated symptoms such as jaundice or fever, she should go to the ER for evaluation. We did review that she will be due for a follow-up colonoscopy in 2026 for further screening. I did advise her to continue her current bowel regimen and healthy diet in regard to keeping her bowel movements regular. I shall schedule her for her yearly ultrasound and the below laboratories including an alpha-fetoprotein level given the theoretical increased risk of hepatoma in regard to the previous history of hepatitis C. If things remain stable I will see her in 1 year for a follow-up visit. I did advise her and her daughter to call in the interim if she has any problems or questions I can be of assistance with. They were both comfortable with this plan. Thank you again for allowing me to participate in John's care. I shall continue to keep you advised of her progress. 03/01/2025 Constipation (ICD-10 - K59.00) Continue the fiber and Miralax with a lot of water, fruits, and vegetables to keep the BM's regular Overall, John appears quite well. She does not show any signs nor have any symptoms of progressive liver disease. She is not having any new or worrisome GI complaints. Her gallstones remain asymptomatic and I advised them that I would agree with Dr. Kerns that at this point I do not think she requires a cholecystectomy since she is not having any symptoms that I feel are referable to the gallbladder. However, we did review that if she develops any significant and persistent right upper quadrant pain and/or any associated symptoms such as jaundice or fever, she should go to the ER for evaluation. We did review that she will be due for a follow-up colonoscopy in 2026 for further screening. I did advise her to continue her current bowel regimen and healthy diet in regard to keeping her bowel movements regular. I shall schedule her for her yearly ultrasound and the below laboratories including an alpha-fetoprotein level given the theoretical increased risk of hepatoma in regard to the previous history of hepatitis C. If things remain stable I will see her in 1 year for a follow-up visit. I did advise her and her daughter to call in the interim if she has any problems or questions I can be of assistance with. They were both comfortable with this plan. Thank you again for allowing me to participate in John's care. I shall continue to keep you advised of her progress. Plan Of Treatment Pending Test Test Name Order Date BUN 09/12/2013 BUN 07/30/2016 BUN 06/26/2017 CREATININE 06/26/2017 CREATININE 09/12/2013 CREATININE 07/30/2016 LIVER PROFILE 11/07/2022 LIVER PROFILE 03/01/2025 LIVER PROFILE 04/22/2018 LIVER PROFILE 08/29/2015 LIVER PROFILE 03/27/2015 LIVER PROFILE 06/20/2020 LIVER PROFILE 06/16/2018 LIVER PROFILE 01/01/2018 LIVER PROFILE 10/11/2021 LIVER PROFILE 11/06/2023 LIVER PROFILE 12/26/2011 LIVER PROFILE 12/09/2017 LIVER PROFILE 07/30/2016 LIVER PROFILE 04/23/2016 LIVER PROFILE 06/25/2015 IRON + IBC (FE) 12/26/2011 FERRITIN 12/26/2011 CBC w DIFF 12/09/2017 CBC w DIFF 07/30/2016 CBC w DIFF 11/07/2022 CBC w DIFF 03/01/2025 CBC w DIFF 04/22/2018 CBC w DIFF 08/29/2015 CBC w DIFF 03/27/2015 CBC w DIFF 06/20/2020 CBC w DIFF 06/16/2018 CBC w DIFF 01/01/2018 CBC w DIFF 10/11/2021 CBC w DIFF 11/06/2023 PROTHROMBIN TIME (PT, INR) 10/11/2021 PROTHROMBIN TIME (PT, INR) 07/30/2016 PROTHROMBIN TIME (PT, INR) 06/20/2020 HEPATITIS A TOTAL 12/26/2011 HIV AG/AB 06/26/2017 ALPHA-FETOPROTEIN,TUMOR MARKER 4 ALPHA-FETOPROTEIN,TUMOR MARKER 6 ALPHA-FETOPROTEIN,TUMOR MARKER 2 ALPHA-FETOPROTEIN,TUMOR MARKER 3 ALPHA-FETOPROTEIN,TUMOR MARKER 2 ALPHA-FETOPROTEIN,TUMOR MARKER 5 ALPHA-FETOPROTEIN,TUMOR MARKER 8 ALPHA-FETOPROTEIN,TUMOR MARKER 0 HEPATITIS C VIRAL LOAD 01/01/2018 HEPATITIS C VIRAL LOAD 06/16/2018 HEPATITIS C VIRAL LOAD 06/25/2015 HEPATITIS C VIRAL LOAD 06/20/2020 HEPATITIS C VIRAL LOAD 12/09/2017 HEPATITIS C VIRAL LOAD 11/06/2023 HEPATITIS C VIRAL LOAD 04/23/2016 HEPATITIS C VIRAL LOAD 10/11/2021 HEPATITIS C VIRAL LOAD 07/30/2016 HEPATITIS C VIRAL LOAD 04/22/2018 HEPATITIS C VIRAL LOAD 08/29/2015 HEPATITIS C VIRAL LOAD 03/27/2015 HEPATITIS C VIRAL LOAD 11/07/2022 HEPATITIS C VIRAL LOAD 03/01/2025 HEPATITIS C GENOTYPE 12/26/2011 MRI ABD W&WO CONTRAST 09/12/2013 MRI ABD W&WO CONTRAST 11/22/2014 US ABD 06/20/2020 FLUOR. ANTINUCLEAR AB SCREEN (CLAUDY) 11/27 HCV LIVER FIBROSIS, FIBRO TEST 3 HCV LIVER FIBROSIS, FIBRO TEST 5 HCV LIVER FIBROSIS, FIBRO TEST 4 HCV LIVER FIBROSIS, FIBRO TEST 2 HCV LIVER FIBROSIS, FIBRO TEST 7 HCVVL REFLEX GENOTYPE REFLEX NS5A 2016 US ABDOMEN COMP WITH ELASTOGRAPHY 2022 US ABDOMEN COMP WITH ELASTOGRAPHY 2021 Prothrombin Time INR 03/01/2025 Prothrombin Time INR 11/07/2022 Prothrombin Time INR 11/06/2023 Liver Fibrosis Pnl 03/01/2025 US abdomen comp w elastography 4 US abdomen comp w elastography 5 Future Test Test Name Order Date COLONOSCOPY 12/26/2011 COLONOSCOPY 10/11/2021 Next Appt Details Provider Name:Choco Douglas , 03/01/2026 01:00:00 PM, [address], [address], [place], [address], Insurance Providers Payer Name Payer Address Payer Phone Subscriber Number Group Number Insured Name Patient Relationship to Insured Coverage Start Date Coverage End Date [facility] [address] Attn Claims JAYDE Pemberton [id number] WADEDEVON HELIO JOHN Self - patient is the insured Medical (General) History Medical History History ICD Code Chronic hepatitis C-genotype 1A-she had a liver biopsy in July of 2012 that revealed a grade 2/4 hepatitis, and only a stage I out of 4 fibrosis. A liver profile in July of 2012 show an AST of 62 and ALT of 66, with a normal albumin and bilirubin. Her hepatitis A total antibody was positive. Labs in 2011 showed a hepatitis B profile consistent with immunity, and a negative HIV test. She had a negative MRI of the liver in 08/2013 with an AFP of 11.4. She was treated with 8 weeks of Harvoni from mid-April through mid-June of 2015- - her LFTs were normal and the hepatitis C viral load was not detectable on August 21, 2015 and in 12/2015. However, her hepatitis C viral load became elevated along with her LFTs in June of 2016- - she also had hepatitis C genotype 1B, as opposed to genotype 1A that she had in the past . She finished 12 weeks of Vosevi at the end of 03/2018 and Hep C viral load was neg. 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
--- OUTSIDE RECORDS SUMMARY | 2025-03-10 06:48 | XMS_ITS | Encounter Summary ---
Author Organization [employer] Address [address] [place] [address] Care Team Providers Care Correctional Food Service Supervisor Name Role Phone Lala Sarah MD Primary Care Provider [phone] Reason for Visit * Reason Onset Date Comments Med Refill 01/24/2025 Encounter Details Date Type Department Care Team ([facility] st Contact Info) Description 01/24/2025 Telephone [facility]INE [address] [place], [place] [phone] Lala Sarah MD [address] [place], [place] [phone] Med Refill Social History Tobacco Use Types Packs/Day Years Used Date Smoking Tobacco: Never Smokeless Tobacco: Never Alcohol Use Standard Drinks/Week Comments Not Currently 0 (1 standard drink = 0.6 oz pur e alcohol) Comments Unknown Sex and Gender Information Value Date Recorded Sex Assigned at Female 05/27/2022 10:15 AM EDT Legal Sex Female 10:15 AM EDT Gender Identity Female 05/27/2022 10:15 AM EDT Sexual Orientation Straight 05/27/2022 10 :15 AM EDT documented as of this encounter Miscellaneous Notes * Telephone Encounter - Merlene Stephens LPN - 01/24/2025 9:01 AM EDT Medication was sent to [facility] on 01/11/25 90 day supply with 3 refills. * Telephone Encounter - Eugenie Mathew - 01/24/2025 8:53 AM EDT TC from pt requesting medication refill. Medications needing refill : Reguloid 400 MG capsule To be sent to: [facility] - [place], [place] - [address] [place] [address] documented in this encounter Plan of Treatment Upcoming Encounters Date Type Department Care Team (Late st Contact Info) Description 04/29/2025 11:00 AM EDT Office Visit [facility] MEDICINE [address] [place] [phone] Lala Sarah MD [address] [place] [address] 06/28/2025 3:00 PM EST Office Visit [facility] ADULT DENTAL [address] [place] [address] Samantha Ricketts documented as of this encounter Visit Diagnoses Not on filedocumented in this encounter Care Teams Correctional Food Service Supervisor Relationship Specialty Start Date End Date Lala Sarah MD [address] [place] [address] PCP - General Family Medicine 03/27/20 documented as of this encounter
[2025-03-10 07:02] LABS: MANUAL DIFF FLAG NO
[2025-03-10 07:33] LABS: Hematocrit 37.9 % (37.0-47.0); Hemoglobin 12.6 g/dl (12.0-16.0); INTERNATIONAL NORM RATIO 0.9 (0.9-1.1); Imm Gran Abs Auto 0.01 X10*3/uL (0.00-0.03); Imm Gran Pct Auto 0.2 % (0.0-0.4); Lymphocytes Absolute Auto 1.4 X10*3/uL (1.2-4.9); Mean Corpuscular HGB Conc 33.2 g/dl (31.0-35.0); Mean Corpuscular Hemoglobin 28.8 pg (27.0-33.0); Mean Corpuscular Volume 86.7 fL (80.0-98.0); NRBC Abs Auto 0.000 X10*3/uL (0.0-0.012); NRBC Pct Auto 0.0 /100WBC (0.0-0.2); Platelet Count 228 X10*3/uL (160-400); Prothrombin Time 10.7 SEC (10.9-12.4); Red Blood Count 4.37 X10*6/uL (4.20-5.50); White Blood Count 5.3 X10*3/uL (4.8-10.8)
[2025-03-10 08:18] LABS: Alanine Aminotransferase 15 U/L (0-31); Albumin Level 4.3 g/dL (3.5-5.0); Alkaline Phosphatase 118 U/L (39-117); Aspartate Amino Transferase 27 U/L (5-31); Total Protein 8.0 g/dL (6.5-8.0)
[2025-03-11 14:34] LABS: HCV Log PCR <1.18 NOT DETECTED Log IU/mL (NOT DETECTED); HepC Viral Load <15 NOT DETECTED IU/mL (NOT DETECTED)
[2025-03-16 00:48] LABS: FIB-ALT 8 U/L (6-29); FIB-Alpha-2-Macroglobulin 309 mg/dL (106-279); FIB-Apolipoprotein A1 198 mg/dL (101-198); FIB-GGT 15 U/L (3-65); FIB-Haptoglobin 176 mg/dL (43-212); FIB-Total Bilirubin 0.3 mg/dL (0.2-1.2); Liver Fibrosis Score 0.15; Liver Fibrosis Stage F0; Nec Inflam Act Grade A0; Nec Inflam Act Score 0.01
== END 2025-03-10 06:46 | disposition home or self-care (01) ==
LOC: HO.LAB 06:45
PROVIDERS: PCP General Practice; Visit Provider Internal Medicine
DX: B18.2 Chronic viral hepatitis C (principal); K74.00 Hepatic fibrosis, unspecified
CPT/HCPCS: 36415; 80076; 81596; 82105; 85025; 85610; 87522

== ENCOUNTER 2025-04-22 09:05 | Outpatient (REF) | payer OTHER, SELFPAY ==
--- OUTSIDE RECORDS SUMMARY | 2024-11-10 12:20 | XMS_ITS ---
Author Organization [facility] Address [address] [place] [address] Care Team Providers Care Crime Scene Investigator Name Role Phone Lala Sarah M.D. Primary Care Provider Choco Cruz [phone] REASON FOR VISIT chronic hep c, liver fibrosis Encounters Encounter Location Date Provider Diagnosis [facility] [address] [place] [address] 11/10/2024 Choco Dogulas Plan Of Treatment Next Appt Details Provider Name:Choco Wild Douglas , 03/01/2026 01:00:00 PM, [address], [address], [place], [address], Progress Notes * MILVIA AGUILARINADOB:1960 (64 yo F)Acc No.[id number]:11/10/2024 Progress Notes Patient: JOHN FOUNTAIN Provider: Cuong Douglas MD :1960 A ge:63 Y S ex:Female Date:11/10/2024 Address:[address] [place], [place] [id number] Pcp:Lala Sarah M.D. Subjective: * Chief Complaints: [...] MD Date: 0 11/10/2024 Generated for Saranya meier/Cuate/Edwin on: 0 04/22/2025 09:45 AM EDT
--- NOTE | ~2025-04-22 | US_ITS ---
EXAMINATION: US ABDOMEN COMPLETE WITH LIVER ELASTOGRAPHY HISTORY: Liver fibrosis, chronic hep c, TECHNIQUE: Real-time grayscale ultrasound imaging of the abdomen was performed and images were reviewed. COMPARISON: Comparison is made with the prior examination dated 11/14/2023. FINDINGS: Liver: The right lobe of the liver measures 12.5 cm in size. The left lobe of the liver measures 8.7 cm in size. The liver demonstrates normal homogeneous echotexture. No focal mass or intrahepatic biliary ductal dilatation is identified. There is a 6 mm calcification in the right lobe. There is normal hepatopedal flow in the portal vein. Ultrasound elastography of the liver was performed with 10 separate measurements of the liver parenchyma with the patient in the supine position. Measurements were obtained approximately 2 cm below Shayla's capsule and perpendicular to the capsule. The median shear wave velocity is 1.39 m/s (previously 1.43 m/s). The interquartile range/median (IQR/median) is 0.07. Gallbladder and biliary tree: The gallbladder is unremarkable, without evidence of calculi, wall thickening, or pericholecystic fluid. There is no sonographic Prescott sign. The common bile duct is normal in caliber measuring 8 mm. Kidneys: The right kidney measures 8.6 cm in length and demonstrates a 3 mm nonobstructing calculus in the interpolar region. The left kidney measures 9.7 cm in length. The kidneys are unremarkable, without evidence of masses or hydronephrosis. Pancreas: The pancreatic head, neck, and body are unremarkable. The pancreatic tail is obscured by bowel gas. Spleen: The spleen is normal in size and contour, measuring 9.2 cm in length. Abdominal aorta and inferior vena cava: The visualized portions of the abdominal aorta and inferior vena cava are normal in caliber. There is no free fluid in the abdomen. US/US abdomen comp w elastography IMPRESSION: Nonobstructing right renal calculi. Otherwise unremarkable abdominal ultrasound. The median shear wave velocity in the liver is 1.39 m/s, corresponding to a median liver stiffness of 5.81 kPa. The IQR/median value is 0.07. This is indicative of a quality data set. Findings are indicative of a low elastography value which rules out advanced chronic liver disease in asymptomatic patients. REFERENCE: Society of Radiologists in Ultrasound Liver Stiffness Thresholds (2020): LIVER STIFFNESS THRESHOLDS: *Shear wave velocity less than 1.3 m/s (Liver Stiffness equal or less than 5 kPa): High probability of being normal. *Shear wave velocity less than 1.7 m/s (Liver Stiffness less than 9 kPa): In the absence of other known clinical signs, rules out compensated advanced chronic liver disease. *Shear wave velocity between 1.7-2.1 m/s (Liver Stiffness 9-13 kPa): Suggestive of compensated advanced chronic liver disease but need further test for confirmation. *Shear wave velocity between 2.1-2.4 m/s (Liver Stiffness 13-17 kPa): Rules in compensated advanced chronic liver disease. *Shear wave velocity greater than 2.4 m/s (Liver Stiffness over 17 kPa): Suggestive of clinically significant portal hypertension. QUALITY OF DATA SET: *IQR/Median value equal or less than 0.15 implies a quality data set. *IQR/Median value over 0.15 implies a poor quality data set. SIGNIFICANT CHANGE FROM PRIOR EXAM: Significant change if liver stiffness measurement is 10% or greater from prior exam. OTHER CONSIDERATIONS: The stage of liver fibrosis may be overestimated in the setting of acute hepatitis, liver inflammation, elevated liver function tests, hepatic vascular congestion, obstructive cholestasis, non-fasting state, and infiltrative diseases such as amyloidosis and lymphoma. In some patients with NAFLD, the liver stiffness thresholds for compensated advanced chronic liver disease may be lower. In causes other than viral hepatitis and NAFLD, liver stiffness thresholds are not well established. Electronically signed by: Choco Ivey MD 04/22/2025 10:13 AM EDT
--- OUTSIDE RECORDS SUMMARY | 2025-04-22 09:45 | XMS_ITS | Encounter Summary ---
Author Organization [email or web address] Address [address] [facility] [address] [place] [address] Care Team Providers Care Interlocking Machine Operator Name Role Phone Lala Sarah MD Primary Care Provider [phone] Encounter Details Date Type Department Care Team (Late st Contact Info) Description 09/12/2023 Orders Only [facility] MEDICINE [address] [place], [place] [phone] Lala Sarah MD [address] [place], [place] [phone] Social History Tobacco Use Types Packs/Day Years [...] AM EDT documented as of this encounter Plan of Treatment Upcoming Encounters Date Type Department Care Team (Late st Contact Info) Description 04/29/2025 11:00 AM EDT Office Visit [facility] MEDICINE [address] [place], [place] [phone] Lala Sarah MD [address] [place], [place] [phone] 09/06/2025 9:30 AM EST Office Visit [facility] OPTOMETRY [address] [place], [place] [phone] Mayra Ott, OD [address] [place] [phone] documented as of this encounter Visit Diagnoses Not on filedocumented in this encounter Care Teams Interlocking Machine Operator Relationship Specialty Start Date End Date Lala Sarah MD [address] [place] [address] PCP - General Family Medicine 03/27/20 documented as of this encounter
--- OUTSIDE RECORDS SUMMARY | 2025-04-22 09:45 | XMS_ITS | Encounter Summary ---
Author Organization [facility] Address [address] [facility] [address] [place] [address] Care Team Providers Care Infection Control Specialist Name Role Phone Lala Sarah MD Primary Care Provider [phone] Encounter Details Date Type Department Care Team (Late Contact Info) Description 04/02/[address] [facility] MED[facility] [address] [place] [phone] ProviderSoumya MD Social History Tobacco Use Types Packs/Day Years [...] Description 04/29/2025 11:00 AM EDT Office Visit [facility] [address] [place] [phone] Lala Sarah MD [address] [place] [address] 09/06/2025 9:30 AM EST Office Visit [facility] OPTOMETRY [address] [place] [address] Mayra Ott, OD [address] [place] [address] documented as of this encounter Procedures Procedure Name Priority Date/Time Associated Diagnosis Comments HM COLONOSCOPY Routine 11/19/2021 documented in this encounter Results * Hm Colonoscopy (11/19/2021) Historical Provider HEALTH MAINTENANCE Final Result documented in this encounter Visit Diagnoses Not on filedocumented in this encounter Care Teams Infection Control Specialist Relationship Specialty Start Date End Date Lala Sarah MD [address] [place] [phone] PCP - General Family Medicine 03/27/20 documented as of this encounter
--- OUTSIDE RECORDS SUMMARY | 2025-04-22 09:45 | XMS_ITS | Encounter Summary ---
Author Organization [employer] Address [address] [facility] [address] 7t [place] [address] Care Team Providers Care Trim Line Worker Name Role Phone Llaa Sarah MD Primary Care Provider [phone] Reason for Visit * Reason Onset Date Comments Med Refill 03/15/2025 Encounter Details Date Type Department Care Team ([facility] st Contact Info) Description 03/15/2025 Telephone [facility] [address] [place], [place] [phone] Lala Sarah MD [address] [place], [place] [phone] Med Refill Social History Tobacco Use Types [...] Telephone Encounter - Merlene Stephens LPN - 03/15/2025 8:14 AM EDT Medication was sent to [facility] on 02/17/25 with 3 refills. * Telephone Encounter - Sangita Thomas - 03/15/2025 8:02 AM EDT TC from pt requesting medication refill. Medications needing refill : diclofenac (Voltaren) 75 MG EC tablet To be sent to: [facility] - [place], [place] - [address] [place] [address] documented in this encounter Plan of Treatment Upcoming Encounters Date Type Department Care Team (Late st Contact Info) Description 04/29/2025 11:00 AM EDT Office Visit [facility] [address] [place] [address] Lala Sarah MD [address] [place] [address] 09/06/2025 9:30 AM EST Office Visit [facility] OPT[facility] [address] [place] [address] Mayra Ott, OD [address] [place] [address] documented as of this encounter Visit Diagnoses Not on filedocumented in this encounter Care Teams Trim Line Worker Relationship Specialty Start Date End Date Lala Sarah MD [address] [place] [address] PCP - General Family Medicine 03/27/20 documented as of this encounter
--- OUTSIDE RECORDS SUMMARY | 2025-04-22 09:45 | XMS_ITS | Encounter Summary ---
Author Organization [employer] [facility] [employer] Address [address] [facility] 7t [place] [address] Care Team Providers Care Utility Helicopter Repairer Name Role Phone Lala Sarah MD Primary Care Provider [phone] Reason for Visit * Reason Onset Date Comments Med Refill 04/19/2025 Encounter Details Date Type Department Care Team (Late st Contact Info) Description 04/19/2025 Refill [facility] [address] [place], [place] [phone] Lala Sarah MD [address] [place], [place] [phone] Arthralgia, unspecified joint Social History Tobacco Use Types Packs/Day Years [...] encounter Miscellaneous Notes * Telephone Encounter - Asia Osborne LPN - 04/19/2025 9:31 AM EDT Education Teacher ck on 04.19.25 and last filled 03.08.25 * Telephone Encounter - Robbin Acosta - 04/19/2025 9:19 AM EDT TC from pt requesting medication refill. Medications needing refill : gabapentin (Neurontin) 300 MG capsule To be sent to: [facility] - [place], [place] - [address] [place] [address] documented in this encounter Plan of Treatment Upcoming Encounters Date Type Department Care Team (Late st Contact Info) Description 04/29/2025 11:00 AM EDT Office Visit [facility] [address] [place] [address] Lala Sarah MD [address] [place] [address] 09/06/2025 9:30 AM EST Office Visit [facility] OPTOMETRY [address] [place] [address] Mayra Ott, OD [address] [place] [address] documented as of this encounter Visit Diagnoses Diagnosis Arthralgia, unspecified joint documented in this encounter Care Teams Utility Helicopter Repairer Relationship Specialty Start Date End Date Lala Sarah MD [address] [place] [address] PCP - General Family Medicine 03/27/20 documented as of this encounter
--- OUTSIDE RECORDS SUMMARY | 2025-04-22 09:45 | XMS_ITS | Patient Health Record ---
Author Organization [facility] Address [address] [place] [address] Care Team Providers Care Customer Account Specialist Name Role Phone Lala Sarah M.D. Primary Care Provider Choco Cruz Unavailable [phone] Allergies No Known Allergies Results Component Value Reference Range Notes Complete Blood Count Auto Di ff Reviewed date:03/16/2025 12:23:06 AM Interpretation: Performing Lab:[facility], [address] [place] [phone] Notes/Report: White Blood Count 5.3 4.8-10.8 X10*3/uL Red Blood Count 4.37 4.20-5.50 X10*6/uL Hemoglobin 12.6 12.0-16.0 g/dl Hematocrit 37.9 37.0-47.0 % Mean Corpuscular Volume 86.7 80.0-98.0 fL Mean Corpuscular Hemoglobin 28.8 27.0-33.0 pg Mean Corpuscular HGB Conc 33.2 31.0-35.0 g/dl Red Cell Distribution Width 13.3 11.0-16.0 % Platelet Count 228 160-400 X10*3/uL Mean Platelet Volume 9.9 9.4-12.3 fL Neutrophils Percent Auto 63.3 45-73 % Imm Gran Pct Auto 0.2 0.0-0.4 % Lymphocytes Percent Auto 26.0 20-40 % Monocytes Percent Auto 7.7 2-11 % Eosinophils Percent Auto 2.2 0-4 % Basophils Percent Auto 0.6 0-2 % NRBC Pct Auto 0.0 0.0-0.2 /100WBC Neutrophils Absolute Auto 3.4 2.0-8.3 x10*3/u L Imm Gran Abs Auto 0.01 0.00-0.03 X10*3/uL Lymphocytes Absolute Auto 1.4 1.2-4.9 X10*3/u L Monocytes Absolute Auto 0.4 0.1-1.2 X10*3/uL Eosinophils Absolute Auto 0.1 0.0-0.4 X10*3/u L Basophils Absolute Auto 0.0 0.0-0.2 X10*3/uL NRBC Abs Auto 0.000 0.0-0.012 X10*3/uL Prothrombin Time INR Reviewed date:03/16/2025 12:23:17 AM Interpretation: Performing Lab:[address] [phone] Notes/Report: Prothrombin Time 10.7 10.9-12.4 SEC INTERNATIONAL NORM RATIO 0.9 0.9-1.1 INTERNATIONAL NORMALIZED RATIO (INR) REFERENCE RANGES Reference Range For patients not on anticoagulant therapy: 0.9 - 1.1 INR ranges for oral anticoagulant therapy: For prevention and treatment of venous thrombosis and pulmonary embolism: 2.0 - 3.0 For acute myocardial infarction with aspirin therapy: 2.0 - 3.0 For acute myocardial infarction without aspirin therapy: 3.0 - 4.0 For patients with mechanical prosthetic heart valves: 2.5 - 3.5 Liver Panel Reviewed date:03/16/2025 01:21:38 AM Interpretation: Performing Lab:[address] [phone] Notes/Report: Bilirubin Total 0.4 0.0-1.0 mg/dL Bilirubin Direct 0.1 0.0-0.5 mg/dL Aspartate Amino Transferase 27 5-31 U/L Alanine Aminotransferase 15 0-31 U/L Total Protein 8.0 6.5-8.0 g/dL Albumin Level 4.3 3.5-5.0 g/dL Alkaline Phosphatase 118 39-117 U/L Alpha Fetoprotein (Not yet r eviewed by provider) Interpretation: Performing Lab:[address] [address] Notes/Report: Alpha Fetoprotein 2.7 Reference Range: <6.1 The use of AFP as a tumor marker in females is not recommended. This test was performed using the Gabriela Hue chemiluminescent method. Values obtained from different assay methods cannot be used interchangeably. AFP levels, regardless of value, should not be interpreted as absolute evidence of the presence or absence of disease. THIS TEST WAS PERFORMED AT: [facility] [address] [place] [phone] VERITO RAMIREZ MD Liver Fibrosis Pnl (Not yet reviewed by provider) Interpretation: Performing Lab:[facility], [address] [place] [phone] Notes/Report: Liver Fibrosis Score 0.15 Liver Fibrosis Stage F0 Liver Fibrosis Interpretation SEE NOTE no fibrosis Fibro Test Score (f) Metavir Score f>=0 and f<=0.21 : F0 (no fibrosis) f>0.21 and f<=0.27 : F0-F1 (no fibrosis) f>0.27 and f<=0.31 : F1 (minimal fibrosis) f>0.31 and f<=0.48 : F1-F2 (minimal fibrosis) f>0.48 and f<=0.58 : F2 (moderate fibrosis) f>0.58 and f<=0.72 : F3 (advanced fibrosis) f>0.72 and f<=0.74 : F3-F4 (advanced fibrosis) f>0.74 and f<=1.00 : F4 (severe fibrosis) Nec Inflam Act Score 0.01 Nec Inflam Act Grade A0 Nec Inflam Act Interpretation SEE NOTE no activity ActiTest Score (a) Metavir Score a>=0 and a<=0.17 : A0 (no activity) a>0.17 and a<=0.29 : A0-A1 (no activity) a>0.29 and a<=0.36 : A1 (minimal activity) a>0.36 and a<=0.52 : A1-A2 (minimal activity) a>0.52 and a<=0.60 : A2 (significant activity) a>0.60 and a<=0.62 : A2-A3 (significant activity) a>0.62 and a<=1.00 : A3 (severe activity) UFP-Kpyfa-3-Macroglobulin 309 106-279 mg/dL FIB-Haptoglobin 176 43-212 mg/dL FIB-Apolipoprotein A1 198 101-198 mg/dL FIB-Total Bilirubin 0.3 0.2-1.2 mg/dL FIB-GGT 15 3-65 U/L FIB-ALT 8 6-29 U/L Reference ID [id number] Footnote SEE NOTE The reliability of results is dependent on compliance with the preanalytical and analytical conditions recommended by [employer]. The tests have to be deferred for: acute hemolysis, acute hepatitis, acute inflammation, extra hepatic cholestasis. The advice of a specialist should be sought for interpretation in chronic hemolysis and Gilbert's syndrome. The test interpretation is not validated in liver transplant patients. Isolated extreme values of one of the components should lead to caution in interpreting the results. In case of discordance between a biopsy result and a test, it is recommended to seek the advice of a specialist. The causes of these discordances could be due to a flaw of the test or to a flaw in the biopsy: i.e. a liver biopsy has a 33% variability rate for one fibrosis stage. FibroTest is interpretable for chronic hepatitis B and C, alcoholic and non alcoholic steatosis. ActiTest is interpretable for chronic hepatitis B and C. The performance characteristics have been determined by [facility]. It has not been cleared or approved by the U.S. Food and Drug Administration. Performance characteristics refer to the analytical performance of the test. Scope 5, [employer], the associated logo, [employer] and all associated [employer] justice are the registered trademarks of [employer]. All third republican justice - (R) and (TM) - are the property of their respective owners. (C) [id number] [employer]. All rights reserved. THIS TEST WAS PERFORMED AT: [employer] [facility] [address] [place] [address] ABILIO ONEIL MD,PHD,ALEX Hep C Viral Load Reviewed date:03/16/2025 01:20:35 AM Interpretation: Performing Lab:[facility], [address] [place] [phone] Notes/Report: HepC Viral Load <15 NOT DETECTED NOT DETECTED IU/mL HCV Log PCR <1.18 NOT DETECTED NOT DETECTED Log IU/mL For additional information, please refer to http://education.Dinamundo/faq/FAQ22v 1 (This link is being provided for informational/ educational purposes only.) THIS TEST WAS PERFORMED AT: [facility] [address] [place] [phone] VERITO RAMIREZ MD Reason For Referral No Information Medications Medication [...] Problem Status W/U Status Risk Notes Problem 082523229 Encounter for screening for malignant neoplasm of colon (Z12.11) Active confirmed Problem History of adenomatous polyp of colon (472545472) History of adenomatous polyp of colon (Z86.010) Active confirmed Problem Constipation (56133281) Constipation (K59.00) Active confirmed Problem 40827927 Calculus of gallbladder without cholecystitis without obstruction (K80.20) Active confirmed Problem 232808497 Chronic hepatiti s C without hepatic coma (B18.2) Active confirmed Problem 845769919 Elevated liver enzymes (R74.8) Active confirmed Problem Gallstones (307205400) Gallstones (K80.20) Active confirmed Problem Right upper quadrant pain (788907995) RUQ abdominal pain (R10.11) Active confirmed Problem 762278407 History of chronic hepatitis (Z87.19) Active confirmed Problem 721476745 History of chronic active hepatitis (Z86.19) Active confirmed Problem 44959445648180189 Abnormal ultrasound of abdomen (R93.5) Active confirmed Problem Diverticulosis of colon (388275136) Diverticulosis of colon (K57.30) Active confirmed Problem 17291502 Liver fibrosis (K74.00) Active confirmed Vital Signs Temperature 98.2 degrees Fahrenheit 03/01/2025 Blood pressure diastolic 01 mm Hg 03/01/2025 Height 62.25 in 03/01/2025 Blood pressure systolic 001 mm Hg 03/01/2025 Weight 164.2 lbs 03/01/2025 BMI 29.79 kg/m2 03/01/2025 Encounters Encounter Location Date Provider Diagnosis [facility] [address] [place] [phone] 03/01/2025 Choco Douglas Liver fibrosis K74.0 0 ; Gallstones K80.20 ; Encounter for screening for malignant neoplasm of colon Z12.11 ; History of adenomatous polyp of colon Z86.010 ; Chronic hepatitis C without hepatic coma B18.[address] [facility] [address] [place] [phone] 05/18/2024 Choco Douglas Constipation K59.00 [facility] [address] [place] [phone] 11/04/2024 Choco Douglas Assessments Encounter Date Diagnosis (ICD Code) Assessment Notes Treatment Notes Treatment Clinical Notes Section Notes 03/01/2025 Gallstones (ICD-10 - K80.20) Go to [...] progress. 05/18/2024 Constipation (ICD-10 - K59.00) 03/01/2025 Encounter for screening for malignant neoplasm [...] 06/26/2017 CREATININE 09/12/2013 CREATININE 07/30/2016 LIVER PROFILE 10/11/2021 LIVER PROFILE 11/06/2023 LIVER PROFILE 12/26/2011 LIVER PROFILE 04/22/2018 LIVER PROFILE 12/09/2017 LIVER PROFILE 03/27/2015 LIVER PROFILE 04/23/2016 LIVER PROFILE 01/01/2018 LIVER PROFILE 11/07/2022 LIVER PROFILE 03/01/2025 LIVER PROFILE 08/29/2015 LIVER PROFILE 06/20/2020 LIVER PROFILE 07/30/2016 LIVER PROFILE 06/16/2018 LIVER PROFILE 06/25/2015 IRON + IBC (FE) 12/26/2011 FERRITIN 12/26/2011 CBC w DIFF 06/20/2020 CBC w DIFF 07/30/2016 CBC w DIFF 06/16/2018 CBC w DIFF 10/11/2021 CBC w DIFF 11/06/2023 CBC w DIFF 04/22/2018 CBC w DIFF 12/09/2017 CBC w DIFF 03/27/2015 CBC w DIFF 01/01/2018 CBC w DIFF 11/07/2022 CBC w DIFF 03/01/2025 CBC w DIFF 08/29/2015 PROTHROMBIN TIME (PT, INR) 06/20/2020 PROTHROMBIN TIME (PT, INR) 07/30/2016 PROTHROMBIN TIME (PT, INR) 10/11/2021 HEPATITIS A TOTAL 12/26/2011 HIV AG/AB 06/26/2017 ALPHA-FETOPROTEIN,TUMOR MARKER 04/13/202 3 ALPHA-FETOPROTEIN,TUMOR MARKER 2 ALPHA-FETOPROTEIN,TUMOR MARKER 5 ALPHA-FETOPROTEIN,TUMOR MARKER 8 ALPHA-FETOPROTEIN,TUMOR MARKER 0 ALPHA-FETOPROTEIN,TUMOR MARKER 4 ALPHA-FETOPROTEIN,TUMOR MARKER 6 ALPHA-FETOPROTEIN,TUMOR MARKER 2 HEPATITIS C VIRAL LOAD 01/01/2018 HEPATITIS C VIRAL LOAD 08/29/2015 HEPATITIS C VIRAL LOAD 06/25/2015 HEPATITIS C VIRAL LOAD 11/07/2022 HEPATITIS C VIRAL LOAD 03/01/2025 HEPATITIS C VIRAL LOAD 07/30/2016 HEPATITIS C VIRAL LOAD 06/16/2018 HEPATITIS C VIRAL LOAD 04/22/2018 HEPATITIS C VIRAL LOAD 06/20/2020 HEPATITIS C VIRAL LOAD 12/09/2017 HEPATITIS C VIRAL LOAD 03/27/2015 HEPATITIS C VIRAL LOAD 11/06/2023 HEPATITIS C VIRAL LOAD 04/23/2016 HEPATITIS C VIRAL LOAD 10/11/2021 HEPATITIS C GENOTYPE 12/26/2011 MRI ABD W&WO CONTRAST 09/12/2013 MRI ABD W&WO CONTRAST 11/22/2014 US ABD 06/20/2020 FLUOR. ANTINUCLEAR AB SCREEN (CLAUDY) 11/27 HCV LIVER FIBROSIS, FIBRO TEST 4 HCV LIVER FIBROSIS, FIBRO TEST 5 HCV LIVER FIBROSIS, FIBRO TEST 2 HCV LIVER FIBROSIS, FIBRO TEST 3 HCV LIVER FIBROSIS, FIBRO TEST 7 HCVVL REFLEX GENOTYPE REFLEX NS5A 2016 US ABDOMEN COMP WITH ELASTOGRAPHY 2021 US ABDOMEN COMP WITH ELASTOGRAPHY 2022 Prothrombin Time INR 11/06/2023 Prothrombin Time INR 03/01/2025 Prothrombin Time INR 11/07/2022 Alpha Fetoprotein 03/10/2025 Liver Fibrosis Pnl 03/10/2025 Liver Fibrosis Pnl 03/01/2025 US abdomen comp w elastography 5 US abdomen comp w elastography 4 Future Test Test Name Order Date COLONOSCOPY 12/26/2011 COLONOSCOPY 10/11/2021 Next Appt Details Provider Name:Choco Douglas , 03/01/2026 01:00:00 PM, [address], [address], [place], [address], Insurance Providers Payer Name Payer Address Payer Phone Subscriber Number Group Number Insured Name Patient Relationship to Insured Coverage Start Date Coverage End Date [facility] [address] Attn Claims JAYDE Pemberton [phone] [id number] JOHN KEATING Self - patient is the insured Medical [...] viral load was nondetectable in 05/2019 Denies PA,DM,CVA,Lung disease,renal dise ase Negative screening colonoscopy in 12/2011 Depression Arthritis- especially in the back Accjcmivkc-idjomrsoisxa-fzzi on 11/2018 U/S- reviewed potential symptoms and need for surgery with patient and son at 06/15/19 OV Screening colonoscopy in Oct with removal of a small tubular adenoma; 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
--- OUTSIDE RECORDS SUMMARY | 2025-04-22 09:45 | XMS_ITS | Encounter Summary ---
Author Organization [employer] [facility] Address [address] [facility] 7t [place] [address] Care Team Providers Care Dump Worker Name Role Phone Lala Sarah MD Primary Care Provider Reason for Visit * Reason Comments Med Refill Encounter Details Date Type Department Care Team ([facility] Contact Info) Description 08/02/2022 Refill [facility] MEDICINE [address] [place] [address] [phone] Lala Sarah MD [address] [place] [address] [phone] Arthralgia, unspecified joint Social History Tobacco Use [...] Orientation Straight 05/27/2022 10 :15 AM EDT COVID-19 Exposure Response Date Recorded In the last 10 days, have yo u been in contact with someone who was confirmed or suspected to have Coronavirus/COVID-19? No / Unsure 07/03/2022 10:08 AM EST documented as of this encounter Plan of Treatment Upcoming Encounters Date Type Department Care Team ([facility] Contact Info) Description 04/29/2025 11:00 AM EDT Office Visit [facility] MEDICINE [address] [place] [address] [phone] Lala Sarah MD [address] [place] [address] 09/06/2025 9:30 AM EST Office Visit [facility] OPTOMETRY [address] [place], [place] [phone] Mayra Ott, OD [address] [place], [place] [phone] documented as of this encounter Visit Diagnoses Diagnosis Arthralgia, unspecified joint documented in this encounter Care Teams Dump Worker Relationship Specialty Start Date End Date Lala Sarah MD [address] [place], [place] [phone] PCP - General Family Medicine 03/27/20 documented as of this encounter
--- OUTSIDE RECORDS SUMMARY | 2025-04-22 09:45 | XMS_ITS | Encounter Summary ---
Author Organization [employer] Address [address] [facility] [address] [place] [address] Care Team Providers Care Digital Composer Name Role Phone Lala Sarah MD Primary Care Provider [phone] Reason for Visit * Reason Onset Date Comments Med Refill 01/24/2025 Encounter Details Date Type Department Care Team ([facility] st Contact Info) Description 01/24/2025 Telephone [facility] MEDICINE [address] [place], [place] [phone] Lala Sarah MD [address] [place], [place] [phone] Med Refill Social History Tobacco Use Types [...] 9:01 AM EDT Medication was sent to [facility] on 01/11/25 90 day supply with 3 refills. * Telephone Encounter - Eugenie Mathew - 01/24/2025 8:53 AM EDT TC from pt requesting medication refill. Medications needing refill : Reguloid 400 MG capsule To be sent to: [facility] - [place], [place] - [address] [place] [address] documented in this encounter Plan of Treatment Upcoming Encounters Date Type Department Care Team (Late st Contact Info) Description 04/29/2025 11:00 AM EDT Office Visit [facility] MEDICINE [address] [place] [address] Lala Sarah MD [address] [place] [address] 09/06/2025 9:30 AM EST Office Visit [facility] OPTOMETRY [address] [place] [address] Mayra Ott, OD [address] [place] [address] documented as of this encounter Visit Diagnoses Not on filedocumented in this encounter Care Teams Digital Composer Relationship Specialty Start Date End Date Lala Sarah MD [address] [place] [address] PCP - General Family Medicine 03/27/20 documented as of this encounter
--- OUTSIDE RECORDS SUMMARY | 2025-04-22 09:45 | XMS_ITS | Encounter Summary ---
Author Organization [employer] Address [address] [facility] [address] [place] [address] Care Team Providers Care Heel Lining Paster Name Role Phone Lala Sarah MD Primary Care Provider [phone] Reason for Visit * Reason Comments Pre-visit Planning SDOH screening negat mar and tobacco screening negative Encounter Details Date Type Department Care Team ([facility] st Contact Info) Description 04/21/2025 Patient Outreach [facility] MEDICINE [address] [place], [place] [phone] Lala Sarah MD [address] [place] [address] Pre-visit Planning (SDOH screening negative and tobacco screening negative) Social History Tobacco Use Types Packs/Day Years Used Date Smoking Tobacco: Never Smokeless Tobacco: Never Alcohol Use Standard Drinks/Week Comments Not Currently 0 (1 standard drink = 0.6 oz pur e alcohol) Housing Stability Answer Date Recorded What is your housing situation today? I have raquelgeo gaines 04/21/[address] you li ve. Do you have problems with any of the following? None of the above 04/21/2025 Food Insecurity Answer Date Recorded Within the past 12 months, y ou worried that your food would run out before you got money to buy more: Never True 04/21/2025 Within the past 12 months,th e food you bought just didn't last and you didn't have enough money to get more: Never True Transportation Answer Date Recorded In the past 12 months, has l ack of transportation kept you from medical appts, meetings, work or from getting things needed for daily living? No 04/21/2025 Utilities Answer Date Recorded In the past 12 months, has t he electric, gas, oil or water company threatened to shut off services in your home? No 04/21/2025 Internet Access Answer Date Recorded Internet Access Q1 Yes 04/21/2025 Internet Access Q2 Not on file 04/21/2025 Comments Unknown Sex and Gender Information Value Date Recorded Sex Assigned at Female 05/27/2022 10:15 AM EDT Legal Sex Female 10:15 AM EDT Gender Identity Female 05/27/2022 10:15 AM EDT Sexual Orientation Straight 05/27/2022 10 :15 AM EDT documented as of this encounter Progress Notes * Doris Aguila - 04/21/2025 8:42 AM EDT CC Doris placed successful outbound call to patient for pre-visit planning. Patient name and confirmed. Patient confirms appt date and time, and has transportation. Biggest concern for appointment at this time is none Patient advised to bring to appointment a photo id and insurance card. Appropriate screenings completed in anticipation of appointment. documented in this encounter Plan of Treatment Upcoming Encounters Date Type Department Care Team (Late st Contact Info) Description 04/29/2025 11:00 AM EDT Office Visit [facility] MEDICINE [address] [place] [address] Lala Sarah MD [address] [place] [address] 09/06/2025 9:30 AM EST Office Visit [facility] OPTOMETRY [address] [place] [address] Mayra Ott, OD [address] [place] [address] documented as of this encounter Visit Diagnoses Not on filedocumented in this encounter Care Teams Heel Lining Paster Relationship Specialty Start Date End Date Lala Sarah MD [address] [place] [address] PCP - General Family Medicine 03/27/20 documented as of this encounter
--- OUTSIDE RECORDS SUMMARY | 2025-04-22 09:45 | XMS_ITS | Encounter Summary ---
Author Organization [facility] Address [address] [facility] 7t [place] [address] Care Team Providers Care Dress Operator Name Role Phone Lala Sarah MD Primary Care Provider [phone] Reason for Visit * Reason Comments Med Refill Encounter Details Date Type Department Care Team (Late Contact Info) Description 04/18/2025 Refill [facility] MEDICINE [address], [place] [phone] Lala Sarah MD [address] [place] [address] [phone] Social History Tobacco Use Types Packs/Day Years [...] Encounters Date Type Department Care Team (Late Contact Info) Description 04/29/2025 11:00 AM EDT Office Visit [facility] MEDICINE [address], [place] [phone] Lala Sarah MD [address] [place], [place] [phone] 09/06/2025 9:30 AM EST Office Visit [facility] OPTOMETRY [address] [place] [address] [phone] Mayra Ott, OD [address] [place] [address] documented as of this encounter Visit Diagnoses Not on filedocumented in this encounter Care Teams Dress Operator Relationship Specialty Start Date End Date Lala Sarah MD [address] [place] [address] PCP - General Family Medicine 03/27/20 documented as of this encounter
--- OUTSIDE RECORDS SUMMARY | 2025-04-22 09:45 | XMS_ITS | Clinical Summary ---
Author Organization [employer] Address [address] [facility] 7t [place] [address] Care Team Providers Care Print Graphic Designer Name Role Phone Lala Sarah MD Primary Care Provider [phone] Allergies Active Allergy Reactions Criticality Noted Date Comments Diphenhydramine High 09/16/2011 Other reaction(s): Itching Oxycodone 12/04/2023 Medications cholecalcifer ol (Vitamin D-3) 25 MCG (1000 UT) tablet Take 1 tablet by mouth. Active traZODone (Desyrel) 50 MG tabletIndicat ions:Other insomnia TAKE 1 TABLET BY MOUTH AT BEDTIME 30 tablet 6 2024 Active FLUoxetine (PROzac) 20 MG capsuleIndica tions:Depress mar disorder TAKE 1 CAPSULE BY MOUTH EVERY DAY 90 capsule 3 2024 Active Reguloid 400 MG capsule TAKE 2 CAPSULES BY MOUTH WITH A FULL GLASS OF WATER ONE OR TWO TIMES DAILY FOR CONSTIPATION 180 capsule 3 2024 Active cyclobenzapri ne (Flexeril) 5 MG tabletIndicat ions:Arthralg ia, unspecified joint TAKE 1 TABLET BY MOUTH THREE TIMES DAILY IN THE MORNING, AT NOON, AND AT BEDTIME NEEDED FOR MUSCLE SPASMS 45 tablet 3 2024 Active diclofenac (Voltaren) 75 MG EC tablet TAKE 1 TABLET BY MOUTH TWICE DAILY IN THE MORNING AND AT BEDTIME NEEDED FOR PAIN DO NOT BREAK, CRUSH, DISSOLVE OR CHEW 60 tablet 3 2024 Active omega-3 (Fish Oil) 1000 MG capsule TAKE 1 CAPSULE BY MOUTH EVERY OTHER DAY 45 capsule 3 2024 Active simethicone (Gas Relief Extra Strength) 125 MG chewable tablet CHEW 1 TABLET BY MOUTH FOUR TIMES DAILY NEEDED FOR GAS 120 tablet 3 2024 Active acetaminophen (Tylenol 8 Hour) 650 MG ER tablet Take 1 tablet (650 mg) by mouth every 8 (eight) hours if needed for mild pain. Do not crush, chew, or split. 30 tablet 2024 Active polyethylene glycol, PEG, 3350 (Glycolax) 17 GM/SCOOP powder DISSOLVE 1 CAPFUL (17 GRAM) IN 8 OUNCES WATER AND DRINK ONE OR TWO TIMES DAILY FOR CONSTIPATIONDISSOLVE 1 CAPFUL (17 GRAM) IN 8 OUNCES WATER AND DRINK ONE OR TWO TIMES DAILY FOR CONSTIPATION 510 g 2 2024 Active gabapentin (Neurontin) 300 MG capsuleIndica tions:Arthral maggy, unspecified joint Take 1 capsule (300 mg) by mouth 3 times daily. 90 capsule 2 2024 Active hydroCHLOROth iazide 12.5 MG tablet TAKE 1 TABLET BY MOUTH EVERY MORNING 90 tablet 3 2024 Active hydroCHLOROth iazide 12.5 MG tablet TAKE 1 TABLET BY MOUTH EVERY MORNING 90 tablet 3 04/19 Discontinued( Reorder (will not trigger notification to Pharmacy)) gabapentin (Neurontin) 300 MG capsuleIndica tions:Arthral maggy, unspecified joint TAKE 1 CAPSULE BY MOUTH THREE TIMES DAILY NEEDED 90 capsule 2 03/31 Discontinued polyethylene glycol, PEG, 3350 (Glycolax) 17 GM/SCOOP powder DISSOLVE 1 CAPFUL (17 GRAM) IN 8 OUNCES WATER AND DRINK ONE OR TWO TIMES DAILY FOR CONSTIPATION 510 g 2 03/30 Discontinued( Reorder (will not trigger notification to Pharmacy)) amoxicillin (Amoxil) 500 MG capsule Take 1 capsule (500 mg) by mouth every 8 (eight) hours for 7 days. 21 capsule 03/28 gabapentin (Neurontin) 300 MG capsuleIndica tions:Arthral maggy, unspecified joint TAKE 1 CAPSULE BY MOUTH THREE TIMES DAILY NEEDED 90 capsule 04/19 Discontinued( Reorder (will not trigger notification to Pharmacy)) Active Problems Problem Noted Date Diagnosed Date Pain, dental 03/21/2025 Periodontal disease 03/21/2025 Dental abscess 03/21/2025 Nocturia more than twice per night 05/28/2024 Sleep pattern disturbance 05/28/2024 Hypertension 03/09/2024 Assessment & Plan (03/09/2024 9:36 AM EDT): - patient states she has been taking hydrochlorothiazide 12.5 mg daily for a long time - BP at goal today - continue current medication; may need to change if her symptoms become more bothersome - follow up with PCP History of total hysterectomy 07/02/2022 Joint pain 09/27/2013 Hepatitis C 11/27/2012 Constipation 02/04/2012 Depressive disorder 01/15/2012 Herniation of intervertebral disc 01/15/2012 Encounters Date Type Department Care Team Description 04/21/2025 Patient Outreach [facility] [address] [place] [phone] Lala Sarah MD Pre-visit Planning (SDOH screening negative and tobacco screening negative) 04/19/2025 Refill [facility] [address] [place] [phone] Lala Sarah MD Arthralgia, unspecified joint 04/18/2025 Refill [facility] [address] [place] [phone] Lala Sarah MD 04/04/2025 1:30 PM EDT Office Visit [facility] ADULT DENTAL [address] [place] [phone] Kailash Bradley DDS Pain, dental (Primary Dx); Periodontal disease 03/31/2025 Refill [facility] [address] [place] [phone] Lala Sarah MD Arthralgia, unspecified joint 03/30/2025 Refill [facility] [address] [place] [phone] Lala Sarah MD 03/24/2025 Telephone [facility] [address] [place] [phone] Lala Sarah MD Durable Medical Equipment (DME Request: Hand Held Shower head) 03/21/2025 11:30 AM EDT Office Visit [facility] ADULT DENTAL [address] [place] [phone] Kailash Bradley, VIANNEY Pain, dental (Primary Dx); Chronic periodontal disease; Dental abscess 03/15/2025 Telephone [facility] MEDICINE [address] [place] [address] Lala Sarah MD Med Refill 03/10/2025 Refill [facility] [address] [place] [address] Lala Sarah MD 03/06/2025 Refill [facility] MED[facility] [address] [place] [address] Lala Sarah MD 03/01/2025 Telephone [facility] [address] [place] [phone] Lala Sarah MD April02/17/2025 Refill [facility] [address] [place] [address] Lala Sarah MD 02/14/2025 Telephone [facility] [address] [place] [phone] Lala Sarah MD Med Refill 02/01/2025 Refill [facility] [address] [place] [phone] Lala Sarah MD Arthralgia, unspecified joint 01/24/2025 Telephone [facility] [address] [place] [phone] Lala Sarah MD Med Refill from Last 3 Months Immunizations Immunization Administration Dates Next Due Hep A, Adult 11/27/2012,10/09/2011 Hep B, adult 11/30/2002,06/18/2002,05/19/2002 Influenza injectable quadriv alent IIV4 with preservative 05/19/2017,06/14/2015 Influenza, IIV3, injectable 07/04/2014 Influenza, Split (incl. albertina fied surface antigen) 05/31/2013 Moderna Covid-19 Vaccine 12+ 11/14/2020,10/18/19 21 Moderna Covid-19 Vaccine 6+ Bivalent 05/21/2022 Pneumococcal Polysaccharide PPSV23 03/12/2013 TD (adult), 2 Lf tetanus tox oid, preservative free, adsorbed 08/22/2006,08/28/1993 Tdap 03/12/2013 Zoster, Recombinant 05/05/2020,03/02/2020 Social History Tobacco Use Types Packs/Day Years Used Date Smoking Tobacco: Never Smokeless Tobacco: Never Tobacco Cessation:Counseling Given: Not Answered Alcohol Use Standard Drinks/Week Comments Not Currently 0 (1 standard drink = 0.6 oz pur e alcohol) Housing Stability Answer Date Recorded What is your housing situation today? I have raquel gaines 04/21/[address] you [...] Orientation Straight 05/27/2022 10 :15 AM EDT Last Filed Vital Signs Vital Sign Reading Time Taken Comments Blood Pressure 115/80 04/04/2025 1:28 PM EDT Pulse 90 04/04/2025 1:28 PM EDT Temperature 36.8 C (98.3 F) 05/28/2024 9:20 AM EDT Respiratory Rate 16 05/28/2024 9:20 AM EDT Oxygen Saturation 98% 05/28/2024 9:20 AM EDT Inhaled Oxygen Concentration - - Weight 80.4 kg (177 lb 3.2 oz) 05/28/2024 9:20 A M EDT Height 165.1 cm (5' 5 ) 05/30/2023 3:50 PM EDT Body Mass Index 29.49 05/30/2023 3:50 PM EDT Plan of Treatment Upcoming Encounters Date Type Department Care Team (Late st Contact Info) Description 04/29/2025 11:00 AM EDT Office Visit [facility] MEDICINE [address] [place] [address] Lala Sarah MD [address] [place] [address] 09/06/2025 9:30 AM EST Office Visit [facility] OPTOMETRY [address], [place] [phone] Mayra Ott, OD [address] [place] [address] Health Maintenance Due Date Last Done Comments CT Colonography 1960 Depression Screening 1960 FIT DNA/Cologuard 1960 Sigmoidoscopy 1960 Alcohol/Substance Use Screening 1970 Pneumococcal Vaccine: 50+ Years (2 of 2 - PCV) 03/12/2014 03/12/2013 Dental Prophylaxis 06/06/2014 12/03/2013, 03/31/2013 RSV Patients and Patients Aged 60 years or older (1 - Risk 60-74 years 1-dose series) 2018 DTaP/Tdap/Td Vaccines (2 - Td or Tdap) 03/12/2023 03/12/2013, 08/22/2006, 08/28/1993 FIT 07/08/2023 07/08/2022 FOBT 07/08/2023 07/08/2022 Dental Oral Exam 07/04/2024 01/02/2024, 10/20/2012 Dental X-Ray: Bitewings 01/02/2025 01/02/20 24, 12/03/2013, 03/13/2009 COVID-19 Vaccine ( season) 2025 05/21/2022, 11/14/2020, 10/17/2020 Influenza Vaccine (#1) 2025 7, 06/14/2015, 07/04/2014, Additional history exists Mammogram 09/03/2025 09/03/2024, 08/2023, 08/23/2022, Additional history exists Tobacco Screening 04/04/2026 04/04/2025 SDOH Screening 04/21/2026 04/21/2025 Colonoscopy 11/19/2026 11/19/2021 Colorectal Cancer Screening 11/19/2026 Dental X-Ray: Full Mouth 01/02/2027 01/02/2024, 02/25 Lipid Panel 06/05/2028 06/05/2023, 08/31/2020 Hepatitis B Vaccines Completed 11/30/2002, 06/18/2002, 05/19/2002 Hepatitis A Vaccines Completed 11/27/2012, 10/09/19 12 Zoster Vaccines Completed 05/05/2020, 03/02/2020 Cervical Cancer Screening Discontinued HPV/Cotest Discontinued 06/08/2021, 06/08/2021 HIB Vaccines Aged Out No longer eligi ble based on patient's age to complete this topic HPV Vaccines Aged Out No longer eligi ble based on patient's age to complete this topic IPV Vaccines Aged Out No longer eligi ble based on patient's age to complete this topic Meningococcal B Vaccine Aged Out No l onger eligible based on patient's age to complete this topic Meningococcal Vaccine Aged Out No claudette mary jo eligible based on patient's age to complete this topic Pap Smear Discontinued RSV under 20 months Aged Out No longe r eligible based on patient's age to complete this topic Rotavirus Vaccines Aged Out No longer eligible based on patient's age to complete this topic Procedures Procedure Name Priority Date/Time Associated Diagnosis Comments CASE PRESENTATION, DETAILED AND EXTENSIVE TREATMENT PLANNING Routine 04/04/2025 1:30 PM EDT 31 EXTRACTION, ERUPTED TOOTH OR EXPOSED ROOT (ELEVATION/FORCEPS REMOVAL) Routine 04/04/2025 1:30 PM EDT NO CHARGE VISIT Routine 03/21/2025 11:30 AM EDT BI MAMMOGRAM SCREENING TOMOSYNTHESIS BILATERAL Routine 09/03/2024 9:45 AM EST INTRAORAL - COMPLETE SERIES OF RADIOGRAPHIC IMAGES Routine 01/02/2024 8:00 AM EDT Periodontal disease Dental caries COMPREHENSIVE ORAL EVALUATION - NEW OR ESTABLISHED PATIENT Routine 01/02/2024 8:00 AM EDT Periodontal disease Dental caries LIPID PANEL, STANDARD Routine 06/05/2023 8:13 AM EST Routine history and physical examination of adult FECAL GLOBIN BY IMMUNOCHEMISTRY Routine 07/08/2022 12:00 AM EST HM COLONOSCOPY Routine 11/19/2021 HPV MRNA E6/E7 REFLEX TO HPV 16, 18/45 Routine 06/08/2021 10:35 AM EST PROPHYLAXIS - ADULT Routine 12/03/2013 1 2:00 AM EDT from Last 3 Months or Most Recently Relevant to Health Maintenance Results * BI Mammogram Screening Tomosynthesis Bilateral (09/03/2024 9:45 AM EST) Anatomical Region Laterality Modality Breast Bilateral Mammography 09/03/2024 9:45 AM EST Narrative 09/10/2024 5:29 PM EST [facility] [address] [place] [address] Mammography Report Signed Patient: Tammie Agrawal MR#: [id number] : 1960 Acct:[id number] Age/Sex: 63 / F ADM Date: 09/03/24 Loc: HO.MAMMO Attending Dr: Lala Sarah MD Ordering Physician: Lala Sarah Results: 1Negative Date of Service: 09/03/24 Follow Up: 1 Year From [facility] Mammogram Procedure(s): MM tomosynthesis screening BI Accession Number(s): [id number] cc: Lala Sarah EXAMINATION: MM SCREENING DIGITAL BREAST TOMOSYNTHESIS, BILATERAL CLINICAL INFORMATION: Screening. Asymptomatic. COMPARISON: Mammography: Comparison is made with available priors TECHNIQUE: Digital breast mammography with tomosynthesis is performed in both the craniocaudal and mediolateral oblique views along with computer-aided detection (CAD). FINDINGS: The breasts are heterogeneously dense, which may obscure small masses (ACR BI-RADS breast composition Category c). There are no significant masses, abnormal calcifications, or other abnormalities. MM/MM tomosynthesis screening BI IMPRESSION: No mammographic evidence of malignancy. ASSESSMENT: BI-RADS BI-RADS 1 - Negative RECOMMENDATION: Routine annual mammography screening. 1 year F/U This examination should not preclude the clinical evaluation of a suspicious palpable abnormality. This patient's information was entered into a reminder system with a target due date for their next mammogram. Electronically signed by: Junie Dugan DO 09/10/2024 05:26 PM EST Dictated By: Junie Dugan DO Signed By: <Electronically signed by Junie Dugan DO in OV> 09/10/24 1726 DD/ 0945 TD/TT: 09/03/24 0956 Box Attacher: Procedure Note Donotuseinterpreter, Image - 09/10/2024 [facility] [address] [place] [address] Mammography Report Signed Patient: Tammie Agrawal MR#: [id number] : 9Acct:[id number] Age/Sex: 63 / FADM Date: 09/03/24 Loc: HO.MAMMO Attending Dr: Lala Sarah MD Ordering Physician: Sofi Sarahults: 1Negative Date of Service: 09/03/24Follow Up: 1 Year From [facility] Mammogram Procedure(s): MM tomosynthesis screening BI Accession Number(s): [id number] cc: Lala Sarah EXAMINATION: MM SCREENING DIGITAL BREAST TOMOSYNTHESIS, BILATERAL CLINICAL INFORMATION: Screening. Asymptomatic. COMPARISON: Mammography: Comparison is made with available priors TECHNIQUE: Digital breast mammography with tomosynthesis is performed in both the craniocaudal and mediolateral oblique views along with computer-aided detection (CAD). FINDINGS: The breasts are heterogeneously dense, which may obscure small masses (ACR BI-RADS breast composition Category c). There are no significant masses, abnormal calcifications, or other abnormalities. MM/MM tomosynthesis screening BI IMPRESSION: No mammographic evidence of malignancy. ASSESSMENT: BI-RADS BI-RADS 1 - Negative RECOMMENDATION: Routine annual mammography screening. 1 year F/U This examination should not preclude the clinical evaluation of a suspicious palpable abnormality. This patient's information was entered into a reminder system with a target due date for their next mammogram. Electronically signed by: Junie Dugan DO 09/10/2024 05:26 PM EST Dictated By: Junie Dugan DO Signed By: <Electronically signed by Junie Dugna DO in OV> 09/10/24 1726 DD/ TD/TT: 09/03/24 0956 Box Attacher: Lala Sarah MD IMG BI PROCEDURES Edited Resul t - Final * (ABNORMAL) Lipid Panel, Standard (06/05/2023 8:13 AM EST) Triglycerides 111 <150 mg/dL [facility] Comment:Desirable Triglyceri de: less than 150 mg/dLBorderline High Triglyceride 150-199 mg/dLHigh Triglyceride: 200-499 mg/dLVery High Triglyceride: greater than or equal to 5OO mg/dL Cholesterol 219(H) <200 mg/dL [facility] Comment:Desirable Cholestero l: less than 200 mg/dLBorderline High Cholesterol: 200-239 mg/dLHigh Cholesterol: greater than 239 mg/dL LDL Cholesterol Calculated 136(H) <100 mg/dL [facility] Comment:Desirable LDL: less than 100 mg/dLNear Optimal/Above Optimal LDL: 110- 129 mg/dLBorderline High LDL: 130-159 mg/dLHigh LDL: 160-189 mg/dLVery High LDL: greater than or equal to 190 mg/dL HDL Cholesterol 61 >40 mg/dL [facility] Comment:Desirable HDL: great er than 40 mg/dL Note: This HDL assay may give artificially low results in patients with liver disease. Blood Venous blood specimen / Unknown 06/05/2023 8:13 AM EST 06/05/2023 11:02 AM EST Lala aSrah MD LAB BLOOD ORDERABLES Final Res ult [facility] [address] [place] [phone] * Fecal Globin by Immunochemistry (07/08/2022 12:00 AM EST) Fecal Globin By Immunochemistry SEE NOTE [facility] Comment: FECAL GLOBIN BY IMMUNOCHEMISTRY Micro Number: [id number] Test Status: Final Specimen Source: Insure (tm) fobt test card Specimen Quality: Adequate Fecal Globin: Not Detected 07/08/2022 07/16/2022 6:2 6 AM EST Narrative [facility] - 07/25/2022 10:37 AM EST FASTING: UNKNOWN [facility] Lab External Provider LAB BODY FLUIDS AND STOOLS ORDERABLES Final Result [facility] [address] [facility], [place] [address] [facility] [address] [facility], ([address]) [place] [address] * Colonoscopy (11/19/2021) Historical Provider HEALTH MAINTENANCE Final Result * (ABNORMAL) HPV mRNA E6/E7 REFLEX TO HPV 16, 18/45 (06/08/2021 10:35 AM EST) HPV nRNA E6/E7 Detected (A) Not Detected [facility] Comment: Methodology: Refinery Operator Light Ends Recovery-Mediated Amplification This assay detects E6/E7 viral messenger RNA (mRNA) from 14 high-risk HPV types (16,18,31,33,35,39,45,51,52,56,58,59,66,68). The analytical performance characteristics of this assay have been determined by [facility]. The modifications have not been cleared or approved by the FDA. This assay has been validated pursuant to the CLIA regulations and is used for clinical purposes. For additional information, please refer to http://education.Olark/faq/WPH519g0 (This link if provided for information/ educational purposes only.) 06/08/2021 10:3 5 AM EST us Lala Sarah MD LAB CYTOLOGY ORDERABLES Final Result [facility] [address] from Last 3 Months or Most Recently Relevant to Health Maintenance Insurance [facility] [address] [id number] [facility] [place] [id number] Care Teams Print Graphic Designer Relationship Specialty Start Date End Date Lala Sarah MD [address] [place] [address] PCP - General Family Medicine 03/27/20
--- OUTSIDE RECORDS SUMMARY | 2025-04-22 09:45 | XMS_ITS | Encounter Summary ---
Author Organization [employer] Address [address] [place] [address] Care Team Providers Care Automobile Service Advisor Name Role Phone Lala Sarah MD Primary Care Provider [phone] Reason for Visit * Reason Onset Date Comments Med Refill 10/07/2024 Encounter Details Date Type Department Care Team ([facility] st Contact Info) Description 10/07/2024 Telephone [facility] MEDICINE [address] [place], [place] [phone] Lala Sarah MD [address] [place], [place] [phone] Med Refill Social History Tobacco Use Types [...] Telephone Encounter - Merlene Stephens LPN - 10/07/2024 8:37 AM EDT Medication was sent to [facility] on 09/24/24 with 3 refills. * Telephone Encounter - Eugenie Mathew - 10/07/2024 8:35 AM EDT TC from pt requesting medication refill. Medications needing refill : simethicone (Gas Relief Extra Strength) 125 MG chewable tablet To be sent to: [facility] pharmacy documented in this encounter Plan of Treatment Upcoming Encounters Date Type Department Care Team (Late st Contact Info) Description 04/29/2025 11:00 AM EDT Office Visit [facility] MEDICINE [address] [place] [address] Lala Sarah MD [address] [place] [address] 09/06/2025 9:30 AM EST Office Visit [facility] OPTOMETRY [address] [place] [address] Mayra Ott, OD [address] [place] [address] documented as of this encounter Visit Diagnoses Not on filedocumented in this encounter Care Teams Automobile Service Advisor Relationship Specialty Start Date End Date Lala Sarah MD [address] [place], [place] [phone] PCP - General Family Medicine 03/27/20 documented as of this encounter
--- OUTSIDE RECORDS SUMMARY | 2025-04-22 09:45 | XMS_ITS | Encounter Summary ---
Author Organization [employer] Address [address] [facility] 7t [place] [address] Care Team Providers Care Scada Technician Name Role Phone Lala Sarah MD Primary Care Provider [phone] Reason for Visit * Reason Comments Med Refill Encounter Details Date Type Department Care Team (Late st Contact Info) Description 09/26/2023 Refill [facility] MED & PEDS [address] [place], [place] [phone] Lala Sarah MD [address] [place] [address] [phone] Arthralgia, unspecified joint Social History Tobacco Use [...] Description 04/29/2025 11:00 AM EDT Office Visit [facility] MEDICINE [address] [place], [place] [phone] Lala Sarah MD [address] [place], [place] [phone] 09/06/2025 9:30 AM EST Office Visit [facility] OPTOMETRY [address] [place] [address] Tru Mayra, OD [address] [place] [address] documented as of this encounter Visit Diagnoses Diagnosis Arthralgia, unspecified joint documented in this encounter Care Teams Scada Technician Relationship Specialty Start Date End Date Lala Sarah MD [address] [place] [address] PCP - General Family Medicine 03/27/20 documented as of this encounter
--- OUTSIDE RECORDS SUMMARY | 2025-04-22 09:46 | XMS_ITS | Encounter Summary ---
Author Organization [employer] [facility] Address [address] [facility] 7t [place] [address] Care Team Providers Care Crop Or Grain Farmer Name Role Phone Lala Sarah MD Primary Care Provider [phone] Reason for Visit * Reason Comments Med Refill Encounter Details Date Type Department Care Team (Late Contact Info) Description 08/06/2024 Refill [facility] MEDICINE [address] [place], [place] [phone] Lala Sarah MD [address] [place] [address] [phone] Social History Tobacco Use Types Packs/Day Years [...] Description 04/29/2025 11:00 AM EDT Office Visit [facility] MEDICINE [address] [place], [place] [phone] Lala Sarah MD [address] [place], [place] [phone] 09/06/2025 9:30 AM EST Office Visit [facility] OPTOMETRY [address] [place] [address] [phone] Mayra Ott, OD [address] [place] [address] documented as of this encounter Visit Diagnoses Not on filedocumented in this encounter Care Teams Crop Or Grain Farmer Relationship Specialty Start Date End Date Lala Sarah MD [address] [place] [address] PCP - General Family Medicine 03/27/20 documented as of this encounter
--- OUTSIDE RECORDS SUMMARY | 2025-04-22 09:46 | XMS_ITS | Encounter Summary ---
Author Organization [employer] Address [address] [facility] 7t [place] [address] Care Team Providers Care Passport Support Manager Name Role Phone Lala Sarah MD Primary Care Provider [phone] Encounter Details Date Type Department Care Team (Late st Contact Info) Description 06/18/2023 Orders Only [facility] MEDICINE [address] [place], [place] [phone] Lala Sarah MD 230 [place], [place] [phone] Social History Tobacco Use Types Packs/Day Years [...] 11:00 AM EDT Office Visit [facility] MEDICINE [address] [place], [place] [phone] Lala Sarah MD 230 [place], [place] [phone] 09/06/2025 9:30 AM EST Office Visit [facility] OPTOMETRY [address] [place], [place] [phone] Mayra Ott, OD 267 [place] [address] documented as of this encounter Visit Diagnoses Not on filedocumented in this encounter Care Teams Passport Support Manager Relationship Specialty Start Date End Date Lala Sarah MD 230 [place] [address] PCP - General Family Medicine 03/27/20 documented as of this encounter
== END 2025-04-22 09:06 | disposition home or self-care (01) ==
LOC: HO.US 09:05
PROVIDERS: Visit Provider Internal Medicine
DX: K74.00 Hepatic fibrosis, unspecified (principal); B18.2 Chronic viral hepatitis C
CPT/HCPCS: 76700; 76981

== ENCOUNTER → 2025-04-22 09:21 | Outpatient (BNV) | payer OTHER, SELFPAY | PROVIDERS: Visit Provider Radiology Diagnostic Radiology | DX: N20.0 Calculus of kidney (principal); K76.89 Other specified diseases of liver | CPT/HCPCS: 76700 ==

== ENCOUNTER 2025-04-29 11:12 | Outpatient (REF) | payer OTHER, SELFPAY ==
--- OUTSIDE RECORDS SUMMARY | 2024-11-10 12:20 | XMS_ITS ---
Author Organization [facility] Address [address] [place] [address] Care Team Providers Care Digester Cook Name Role Phone Lala Sarah M.D. Primary Care Provider Choco Cruz [phone] REASON FOR VISIT chronic hep c, liver fibrosis Encounters Encounter Location Date Provider Diagnosis [facility] [address] [place] [address] 11/10/2024 Choco Douglas Plan Of Treatment Next Appt Details Provider Name:Choco Wild Douglas , 03/01/2026 01:00:00 PM, [address], [address], [place], [address], Progress Notes * MILVIA AGUILARINADOB:1960 (64 yo F)Acc No.[id number]:11/10/2024 Progress Notes Patient: JOHN FOUNTAIN Provider: Cuong Douglas MD :1960 A ge:63 Y S ex:Female Date:11/10/2024 Address:[address] [place], [place] [id number] Pcp:Lala Sarah M.D. Subjective: * Chief Complaints: * 1 . Chronic hep c, liver fibrosis. * Medical History: Objective: * Vitals: Assessment: Plan: * Treatment: * * The named appointment provid er may or may not be the originator of this progress note, and it is not deemed complete until electronically signed by the appointment provider. Sign off status: Pending * Provider: Cuong Douglas MD Date: 0 11/10/2024 Generated for Saranya meier/Cuate/dEwin on: 1 12:25 PM EDT
--- OUTSIDE RECORDS SUMMARY | 2025-04-29 11:00 | XMS_ITS | Encounter Summary ---
Author Organization [employer] Address [address] [facility] [address] 7[address] [place] [address] Care Team Providers Care Motor Patrol Operator Name Role Phone Lala Sarah MD Primary Care Provider [phone] Reason for Visit * Reason Comments Follow-up Encounter Details Date Type Department Care Team ([facility] st Contact Info) Description 04/29/2025 11:00 AM EDT Office Visit [facility] MEDICINE 230 [place], [place] [phone] Lala Sarah MD 230 [place], [place] [phone] Chronic hepatitis C without hepatic coma (HCC); Dietary counseling; Exercise counseling; Overweight; Arthralgia, unspecified joint Social History Tobacco Use Types Packs/Day Years Used Date Smoking Tobacco: Never Smokeless Tobacco: Never Alcohol Use Standard Drinks/Week Comments Not Currently 0 (1 standard drink = 0.6 oz pur e alcohol) Alcohol Answer Date Recorded How often do you have a drink containing alcohol ? 0 04/29/2025 How many drinks containing a lcohol do you have on a typical day when you are drinking? 0 04/29/2025 How often do you have six or more drinks on one occasion? 0 04/29/2025 Depression Answer Date Recorded Patient Health Questionnaire-9 Score 0 04/29/2025 Patient Health Questionnaire-9 Score 0 04/29/2025 Last PHQ-9: Questionnaire Data Not on file 1 Housing Stability Answer Date Recorded What is [...] off services in your home? No 04/21/2025 Depression Answer Date Recorded Patient Health Questionnaire-2 Score 0 04/29/2025 Internet Access Answer Date Recorded Internet Access Q1 Yes 04/21/2025 Internet Access Q2 Not on file 04/21/2025 Comments Unknown Sex and Gender Information Value Date Recorded Sex Assigned at Female 05/27/2022 10:15 AM EDT Legal Sex Female 10:15 AM EDT Gender Identity Female 05/27/2022 10:15 AM EDT Sexual Orientation Straight 05/27/2022 10 :15 AM EDT documented as of this encounter Last Filed Vital Signs Vital Sign Reading Time Taken Comments Blood Pressure 120/72 04/29/2025 10:43 AM EDT Pulse 64 04/29/2025 10:43 AM EDT Temperature 36.7 C (98.1 F) 04/29/2025 10:43 AM EDT Respiratory Rate 20 04/29/2025 10:43 AM EDT Oxygen Saturation - - Inhaled Oxygen Concentration - - Weight 77.2 kg (170 lb 3.2 oz) 04/29/2025 10:43 AM EDT Height 162.6 cm (5' 4 ) 04/29/2025 10:43 AM EDT Body Mass Index 29.21 04/29/2025 10:43 AM EDT documented in this encounter Functional Status * Over the past 2 weeks, how often have you been bothered by any of the following problems? Question Answer Date of Assessment Author Patient Health Questionnaire -2 Score 0 04/29/2025 11:10 AM EDT Kalie Arvizu MA * Little interest or pleasure in doing things Answer Date of Assessment Author Not at all 04/29/2025 11:10 AM Kalie Hayden MA * Feeling down, depressed, or hopeless Answer Date of Assessment Author Not at all 04/29/2025 11:10 AM Kalie Hayden MA * Trouble falling or staying asleep, or sleeping too much Answer Date of Assessment Author Not at all 04/29/2025 11:10 AM Kalie Hayden MA * Feeling tired or having little energy Answer Date of Assessment Author Not at all 04/29/2025 11:10 AM Kalie Hayden MA * Poor appetite or overeating Answer Date of Assessment Author Not at all 04/29/2025 11:10 AM Kalie Hayden MA * Feeling bad about yourself - or that you are a failure or have let yourself or your family down Answer Date of Assessment Author Not at all 04/29/2025 11:10 AM Kalie Hayden MA * Trouble concentrating on things, such as reading the newspaper or watching television Answer Date of Assessment Author Not at all 04/29/2025 11:10 AM Kalie Hayden MA * Moving or speaking so slowly that other people could have noticed? Or the opposite - being so fidgety or restless that you have been moving around a lot more than usual. Answer Date of Assessment Author Not at all 04/29/2025 11:10 AM Kalie Hayden MA * Thoughts that you would be better off or hurting yourself in some way Answer Date of Assessment Author Not at all 04/29/2025 11:10 AM Kalie Hayden MA * Patient Health Questionnaire-9 Score Answer Date of Assessment Author 0 04/29/2025 11:10 AM Kalie Hayden MA * Over the last 2 weeks, how often have you been bothered by any of the following problems? Question Answer Date of Assessment Author Feeling nervous, anxious, or on edge 0 04/29/2025 11:10 AM Kalie Hayden MA Not being able to stop or co ntrol worrying 0 04/29/2025 11:10 AM Kalie Hayden MA Worrying too much about diff erent things 0 04/29/2025 11:10 AM EDT Kalie Arvizu MA Trouble relaxing 0 04/29/2025 11:10 AM EDT Kalie Arvizu MA Being so restless that it is hard to sit still 0 04/29/2025 11:10 AM EDT Kalie Arvizu MA Becoming easily annoyed or irritable 0 04/29/2025 11:10 AM EDT Kalie Arvizu MA Feeling afraid as if somethi ng awful might happen 0 04/29/2025 11:10 AM EDT Kalie Arvizu MA MICHAEL-7 Total Score 0 04/29/2025 11:10 AM EDT Kalie Arvizu MA documented as of this encounter Plan of Treatment Upcoming Encounters Date Type Department Care Team (Late st Contact Info) Description 09/06/2025 9:30 AM EST Office Visit [facility] OPTOMETRY [address] [place] [address] Mayra Ott, OD [address] [place] [address] Scheduled Orders Name Type Priority Associated Diagnoses Orde r Schedule Lipid Panel, Standard Lab Routine Overweight Expected: 04/29/2025 (Approximate), Expires: 04/29/2026 Hemoglobin A1c Lab Routine Overweight Expected: 04/29/2025 (Approximate), Expires: 04/29/2026 Comprehensive Metabolic Panel Lab Routine Overweight Expected: 04/29/2025 (Approximate), Expires: 04/29/2026 documented as of this encounter Visit Diagnoses Diagnosis Chronic hepatitis C without hepatic coma (HCC) Dietary counseling Dietary surveillance and counseling Exercise counseling Overweight Arthralgia, unspecified joint documented in this encounter Additional Health Concerns Assessment Noted Time PHQ-9 Depression Total Score: 0 04/29/20 25 11:10 AM EDT documented as of this encounter Care Teams Motor Patrol Operator Relationship Specialty Start Date End Date Lala Sarah MD 230 [place] [address] PCP - General Family Medicine 03/27/20 documented as of this encounter
--- OUTSIDE RECORDS SUMMARY | 2025-04-29 12:25 | XMS_ITS | Encounter Summary ---
Author Organization [employer] Address [address] 7[address] [place] [address] Care Team Providers Care Superintendent Concrete Mixing Plant Name Role Phone Lala Sarah MD Primary Care Provider [phone] Reason for Visit * Reason Onset Date Comments Med Refill 03/15/2025 Encounter Details Date Type Department Care Team ([facility] st Contact Info) Description 03/15/2025 Telephone [facility] MEDICINE [address] [place], [place] [phone] Lala Sarah MD 230 [place], [place] [phone] Med Refill Social History Tobacco Use Types [...] 8:14 AM EDT Medication was sent to [facility] on 02/17/25 with 3 refills. * Telephone Encounter - Sangita Thomas - 03/15/2025 8:02 AM EDT TC from pt requesting medication refill. Medications needing refill : diclofenac (Voltaren) 75 MG EC tablet To be sent to: [facility] - [place], [place] - [address] [facility] documented in this encounter Plan of Treatment Upcoming Encounters Date Type Department Care Team (Late st Contact Info) Description 09/06/2025 9:30 AM EST Office Visit [facility] OPTOMETRY [address] [place] [address] Mayra Ott, OD [address] [place] [address] documented as of this encounter Visit Diagnoses Not on filedocumented in this encounter Care Teams Superintendent Concrete Mixing Plant Relationship Specialty Start Date End Date Lala Sarah MD 230 [facility] [place] [address] PCP - General Family Medicine 03/27/20 documented as of this encounter
--- OUTSIDE RECORDS SUMMARY | 2025-04-29 12:25 | XMS_ITS | Encounter Summary ---
Author Organization [facility] [facility] Address [address] [facility] 7t [place] [address] Care Team Providers Care Certified Dialysis Technician Name Role Phone Lala Sarah MD Primary Care Provider [phone] Reason for Visit * Reason Comments Med Refill Encounter Details Date Type Department Care Team (Late Contact Info) Description 08/02/2022 Refill [facility] MEDICINE 230 [place], [place] [phone] Lala Sarah MD 230 [place], [place] [phone] Arthralgia, unspecified joint Social History Tobacco Use [...] Department Care Team (Late Contact Info) Description 09/06/2025 9:30 AM EST Office Visit [facility] OPTOMETRY [address] [place], [place] [phone] Mayra Ott, OD [address] [place] [address] documented as of this encounter Visit Diagnoses Diagnosis Arthralgia, unspecified joint documented in this encounter Care Teams Certified Dialysis Technician Relationship Specialty Start Date End Date Lala Sarah MD [address] [place] [address] PCP - General Family Medicine 03/27/20 documented as of this encounter
--- OUTSIDE RECORDS SUMMARY | 2025-04-29 12:25 | XMS_ITS | Encounter Summary ---
Author Organization [employer] Address [address] [facility] 7t [place] [address] Care Team Providers Care Vocational Technical Education Director Name Role Phone Lala Sarah MD Primary Care Provider [phone] Reason for Visit * Reason Comments Med Refill Encounter Details Date Type Department Care Team (Late st Contact Info) Description 09/26/2023 Refill [facility] [address] [place], [place] [phone] Lala Sarah MD [address] [place], [place] [phone] Arthralgia, unspecified joint Social History Tobacco Use [...] Description 09/06/2025 9:30 AM EST Office Visit [facility] OPTOMETRY [address] [place], [place] [phone] Tarka, Mayra, OD [address] [place], [place] [phone] documented as of this encounter Visit Diagnoses Diagnosis Arthralgia, unspecified joint documented in this encounter Care Teams Vocational Technical Education Director Relationship Specialty Start Date End Date Lala Sarah MD [address] [place] [address] PCP - General Family Medicine 03/27/20 documented as of this encounter
--- OUTSIDE RECORDS SUMMARY | 2025-04-29 12:25 | XMS_ITS | Encounter Summary ---
Author Organization [employer] Address [address] 7[address] [place] [address] Care Team Providers Care Color Paste Mixing Supervisor Name Role Phone Lala Sarah MD Primary Care Provider [phone] Encounter Details Date Type Department Care Team (Latest Contact Info) Description 04/28/2025 Travel Social History Tobacco Use Types Packs/Day Years [...] Office Visit [facility] OPTOMETRY [address] [place] [address] Mayra Ott, OD [address] [place] [address] documented as of this encounter Visit Diagnoses Not on filedocumented in this encounter Care Teams Color Paste Mixing Supervisor Relationship Specialty Start Date End Date Lala Sarah MD 230 [place] [address] PCP - General Family Medicine 03/27/20 documented as of this encounter
--- OUTSIDE RECORDS SUMMARY | 2025-04-29 12:25 | XMS_ITS | Encounter Summary ---
Author Organization [facility] Address [address] [facility] 7t [place] [address] Care Team Providers Care Log Hooker Name Role Phone Lala Sarah MD Primary Care Provider Encounter Details Date Type Department Care Team (Late st Contact Info) Description 09/12/2023 Orders Only [facility] MEDICINE [address] [place], [place] [phone] Lala Sarah MD [address] [place] [address] Social History Tobacco Use Types Packs/Day Years [...] Description 09/06/2025 9:30 AM EST Office Visit [facility] OPTOMETRY [address] [place], [place] [phone] Mayra Ott OD [address] [place], [place] [phone] documented as of this encounter Visit Diagnoses Not on filedocumented in this encounter Care Teams Log Hooker Relationship Specialty Start Date End Date Lala Sarah MD [address] [place] [address] PCP - General Family Medicine 03/27/20 documented as of this encounter
--- OUTSIDE RECORDS SUMMARY | 2025-04-29 12:25 | XMS_ITS | Encounter Summary ---
Author Organization [employer] Address [address] [facility] [address] [place] [address] Care Team Providers Care Dean Of Student Services Name Role Phone Lala Sarah MD Primary Care Provider Reason for Visit * Reason Onset Date Comments Med Refill 10/07/2024 Encounter Details Date Type Department Care Team ([facility] st Contact Info) Description 10/07/2024 Telephone [facility] MEDICINE 230 [place], [place] [phone] Lala Sarah MD 230 [place], [place] [phone] Med Refill Social History Tobacco Use Types [...] 8:37 AM EDT Medication was sent to [facility] on 09/24/24 with 3 refills. * Telephone Encounter - Eugenie Mathew - 10/07/2024 8:35 AM EDT TC from pt requesting medication refill. Medications needing refill : simethicone (Gas Relief Extra Strength) 125 MG chewable tablet To be sent to: [facility] pharmacy documented in this encounter Plan of Treatment Upcoming Encounters Date Type Department Care Team (Late st Contact Info) Description 09/06/2025 9:30 AM EST Office Visit [facility] OPTOMETRY [address] [place], [place] [phone] Mayra Ott, OD [address] [place] [address] documented as of this encounter Visit Diagnoses Not on filedocumented in this encounter Care Teams Dean Of Student Services Relationship Specialty Start Date End Date Lala Sarah MD [address] [place] [address] PCP - General Family Medicine 03/27/20 documented as of this encounter
--- OUTSIDE RECORDS SUMMARY | 2025-04-29 12:25 | XMS_ITS | Encounter Summary ---
Author Organization [employer] [facility] Address [address] [facility] 7t [place] [address] Care Team Providers Care Manager Plant Name Role Phone Lala Sarah MD Primary Care Provider [phone] Encounter Details Date Type Department Care Team (Late Contact Info) Description 04/02/2023 Orders Only [facility] MEDICINE [address] [place], [place] [phone] Provider, Soumya, Social History Tobacco Use Types Packs/Day Years [...] Description 09/06/2025 9:30 AM EST Office Visit [facility] OPTOMETRY 267 [place], [place] [phone] Tarka, Mayra, OD [address] [place], [place] [phone] documented as of this encounter Procedures Procedure Name Priority Date/Time Associated Diagnosis Comments HM COLONOSCOPY Routine 11/19/2021 documented in this encounter Results * Hm Colonoscopy (11/19/2021) Historical Provider HEALTH MAINTENANCE Final Result documented in this encounter Visit Diagnoses Not on filedocumented in this encounter Care Teams Manager Plant Relationship Specialty Start Date End Date Lala Sarah MD [address] [place] [address] PCP - General Family Medicine 03/27/20 documented as of this encounter
--- OUTSIDE RECORDS SUMMARY | 2025-04-29 12:25 | XMS_ITS | Encounter Summary ---
Author Organization [employer] Address [address] [facility] [address] [place] [address] Care Team Providers Care Fitness Coordinator Name Role Phone Lala Sarah MD Primary Care Provider [phone] Reason for Visit * Reason Onset Date Comments Med Refill 01/24/2025 Encounter Details Date Type Department Care Team ([facility] st Contact Info) Description 01/24/2025 Telephone [facility] MEDICINE 230 [place], [place] [phone] Lala Sarah MD 230 [place], [place] [phone] Med Refill Social History Tobacco Use Types [...] 9:01 AM EDT Medication was sent to [facility] on 01/11/25 90 day supply with 3 refills. * Telephone Encounter - Eugenie Mathew - 01/24/2025 8:53 AM EDT TC from pt requesting medication refill. Medications needing refill : Reguloid 400 MG capsule To be sent to: [facility] - [place], [place] - [address] [facility] documented in this encounter Plan of Treatment Upcoming Encounters Date Type Department Care Team (Late st Contact Info) Description 09/06/2025 9:30 AM EST Office Visit [facility] OPTOMETRY [address] [place], [place] [phone] Mayra Ott, OD [address] [place] [address] documented as of this encounter Visit Diagnoses Not on filedocumented in this encounter Care Teams Fitness Coordinator Relationship Specialty Start Date End Date Lala Sarah MD [address] [place] [address] PCP - General Family Medicine 03/27/20 documented as of this encounter
--- OUTSIDE RECORDS SUMMARY | 2025-04-29 12:25 | XMS_ITS | Patient Health Record ---
Author Organization [facility] Address [address] [place] [address] Care Team Providers Care Nursing Manager Name Role Phone Lala Sarah M.D. Primary Care Provider Choco Cruz Unavailable [phone] Allergies No Known Allergies Results Component Value Reference Range Notes Complete Blood Count Auto Di ff Reviewed date:03/16/2025 12:23:06 AM Interpretation: Performing Lab:[facility], [address] [place] [phone] Notes/Report: White Blood Count 5.3 4.8-10.8 X10*3/uL [...] INR Reviewed date:03/16/2025 12:23:17 AM Interpretation: Performing Lab:[address] [phone] Notes/Report: Prothrombin Time 10.7 10.9-12.4 SEC [employer] [...] Panel Reviewed date:03/16/2025 01:21:38 AM Interpretation: Performing Lab:[address] [address] Notes/Report: Bilirubin Total 0.4 0.0-1.0 mg/dL Bilirubin Direct 0.1 0.0-0.5 mg/dL Aspartate Amino Transferase 27 5-31 U/L Alanine Aminotransferase 15 0-31 U/L Total Protein 8.0 6.5-8.0 g/dL Albumin Level 4.3 3.5-5.0 g/dL Alkaline Phosphatase 118 39-117 U/L Alpha Fetoprotein (Not yet r eviewed by provider) Interpretation: Performing Lab:[address] [address] Notes/Report: Alpha Fetoprotein 2.7 Reference Range: <6.1 The use of AFP as a tumor marker in females is not recommended. This test was performed using the Gabriela Minetto chemiluminescent method. Values obtained from different assay methods cannot be used interchangeably. AFP levels, regardless of value, should not be interpreted as absolute evidence of the presence or absence of disease. THIS TEST WAS PERFORMED AT: [facility] [address] [place] [phone] VERITO RAMIREZ MD Liver Fibrosis Pnl (Not yet reviewed by provider) Interpretation: Performing Lab:[facility], [address] [place] [phone] Notes/Report: Liver Fibrosis Score 0.15 Liver Fibrosis [...] a>0.62 and a<=1.00 : A3 (severe activity) GWB-Fswgs-6-Macroglobulin 309 106-279 mg/dL FIB-Haptoglobin 176 43-212 mg/dL FIB-Apolipoprotein A1 198 101-198 mg/dL FIB-Total Bilirubin 0.3 0.2-1.2 mg/dL FIB-GGT 15 3-65 U/L FIB-ALT 8 6-29 U/L Reference ID [id number] Footnote SEE NOTE The reliability of results [...] The performance characteristics have been determined by [facility]. It has not been cleared or approved by the U.S. Food and Drug Administration. Performance characteristics refer to the analytical performance of the test. [employer], [employer], the associated logo, Augure and all associated [employer] justice are the registered trademarks of [employer]. All third democrat justice - (R) and (TM) - are the property of their respective owners. (C) [id number] [employer]. All rights reserved. THIS TEST WAS PERFORMED AT: [facility] [place] [address] [place] [address] ABILIO ONEIL MD,PHD,ALEX Hep C Viral Load Reviewed date:03/16/2025 01:20:35 AM Interpretation: Performing Lab:[facility], [address] [place] [phone] Notes/Report: HepC Viral Load <15 NOT DETECTED NOT DETECTED IU/mL HCV Log PCR <1.18 NOT DETECTED NOT DETECTED Log IU/mL For additional information, please refer to http://education.Alchimer/faq/FAQ22v 1 (This link is being provided for informational/ educational purposes only.) THIS TEST WAS PERFORMED AT: [facility] [address] [place] [phone] VERITO RAMIREZ MD US abdomen comp w elastograp hy (Not yet reviewed by provider) Interpretation: Performing Lab: Notes/Report: [address] [address] Ultrasound Report Signed Patient: John Agrawal MR#: [id number] : 1960 Acct:[id number] Age/Sex: 64 / F ADM Date: 04/22/25 Loc: HO.US Attending Dr: Choco Douglas MD Ordering Physician: Choco Douglas MD Date of Service: 04/22/25 Procedure(s): US abdomen comp w elastography Accession Number(s): [id number] cc: Choco Douglas MD Reason for Exam: Liver fibrosis, chronic hep c, EXAMINATION: US ABDOMEN COMPLETE WITH LIVER ELASTOGRAPHY HISTORY: Liver fibrosis, chronic hep c, TECHNIQUE: Real-time grayscale ultrasound imaging of the abdomen was performed and images were reviewed. COMPARISON: Comparison is made with the prior examination dated 11/14/2023. FINDINGS: Liver: The right lobe of the liver measures 12.5 cm in size. The left lobe of the liver measures 8.7 cm in size. The liver demonstrates normal homogeneous echotexture. No focal mass or intrahepatic biliary ductal dilatation is identified. There is a 6 mm calcification in the right lobe. There is normal hepatopedal flow in the portal vein. Ultrasound elastography of the liver was performed with 10 separate measurements of the liver parenchyma with the patient in the supine position. Measurements were obtained approximately 2 cm below Shayla's capsule and perpendicular to the capsule. The median shear wave velocity is 1.39 m/s (previously 1.43 m/s). The interquartile range/median (IQR/median) is 0.07. Gallbladder and biliary tree: The gallbladder is unremarkable, without evidence of calculi, wall thickening, or pericholecystic fluid. There is no sonographic Prescott sign. The common bile duct is normal in caliber measuring 8 mm. Kidneys: The right kidney measures 8.6 cm in length and demonstrates a 3 mm nonobstructing calculus in the interpolar region. The left kidney measures 9.7 cm in length. The kidneys are unremarkable, without evidence of masses or hydronephrosis. Pancreas: The pancreatic head, neck, and body are unremarkable. The pancreatic tail is obscured by bowel gas. Spleen: The spleen is normal in size and contour, measuring 9.2 cm in length. Abdominal aorta and inferior vena cava: The visualized portions of the abdominal aorta and inferior vena cava are normal in caliber. There is no free fluid in the abdomen. US/US abdomen comp w elastography IMPRESSION: Nonobstructing right renal calculi. Otherwise unremarkable abdominal ultrasound. The median shear wave velocity in the liver is 1.39 m/s, corresponding to a median liver stiffness of 5.81 kPa. The IQR/median value is 0.07. This is indicative of a quality data set. Findings are indicative of a low elastography value which rules out advanced chronic liver disease in asymptomatic patients. REFERENCE: Society of Radiologists in Ultrasound Liver Stiffness Thresholds (2020): LIVER STIFFNESS THRESHOLDS: *Shear wave velocity less than 1.3 m/s (Liver Stiffness equal or less than 5 kPa): High probability of being normal. *Shear wave velocity less than 1.7 m/s (Liver Stiffness less than 9 kPa): In the absence of other known clinical signs, rules out compensated advanced chronic liver disease. *Shear wave velocity between 1.7-2.1 m/s (Liver Stiffness 9-13 kPa): Suggestive of compensated advanced chronic liver disease but need further test for confirmation. *Shear wave velocity between 2.1-2.4 m/s (Liver Stiffness 13-17 kPa): Rules in compensated advanced chronic liver disease. *Shear wave velocity greater than 2.4 m/s (Liver Stiffness over 17 kPa): Suggestive of clinically significant portal hypertension. QUALITY OF DATA SET: *IQR/Median value equal or less than 0.15 implies a quality data set. *IQR/Median value over 0.15 implies a poor quality data set. SIGNIFICANT CHANGE FROM PRIOR EXAM: Significant change if liver stiffness measurement is 10% or greater from prior exam. OTHER CONSIDERATIONS: The stage of liver fibrosis may be overestimated in the setting of acute hepatitis, liver inflammation, elevated liver function tests, hepatic vascular congestion, obstructive cholestasis, non-fasting state, and infiltrative diseases such as amyloidosis and lymphoma. In some patients with NAFLD, the liver stiffness thresholds for compensated advanced chronic liver disease may be lower. In causes other than viral hepatitis and NAFLD, liver stiffness thresholds are not well established. Electronically signed by: Choco Ivey MD 04/22/2025 10:13 AM EDT Dictated By: Choco Ivey MD Signed By: <Electronically signed by Choco Ivey MD in OV> 04/22/25 1013 DD/ TD/TT: 04/22/25938 Puncher: Reason For Referral No Information Medications Medication [...] Problem Status W/U Status Risk Notes Problem 018043079 Encounter for screening for malignant neoplasm of colon (Z12.11) Active confirmed Problem History of adenomatous polyp of colon (027722673) History of adenomatous polyp of colon (Z86.010) Active confirmed Problem Constipation (77046754) Constipation (K59.00) Active confirmed Problem 50768177 Calculus of gallbladder without cholecystitis without obstruction (K80.20) Active confirmed Problem 255466641 Chronic hepatiti s C without hepatic coma (B18.2) Active confirmed Problem 083535719 Elevated liver enzymes (R74.8) Active confirmed Problem Gallstones (352310412) Gallstones (K80.20) Active confirmed Problem Right upper quadrant pain (671773473) RUQ abdominal pain (R10.11) Active confirmed Problem 060487825 History of chronic hepatitis (Z87.19) Active confirmed Problem 308686600 History of chronic active hepatitis (Z86.19) Active confirmed Problem 15712760058054182 Abnormal ultrasound of abdomen (R93.5) Active confirmed Problem Diverticulosis of colon (556700990) Diverticulosis of colon (K57.30) Active confirmed Problem 62689460 Liver fibrosis (K74.00) Active confirmed Vital Signs Temperature 98.2 degrees Fahrenheit 03/01/2025 Blood pressure diastolic 01 mm Hg 03/01/2025 Height 62.25 in 03/01/2025 Blood pressure systolic 001 mm Hg 03/01/2025 Weight 164.2 lbs 03/01/2025 BMI 29.79 kg/m2 03/01/2025 Encounters Encounter Location Date Provider Diagnosis [facility] [address] [place] [phone] 03/01/2025 Choco Douglas Liver fibrosis K74.0 0 ; Gallstones K80.20 ; Encounter for screening for malignant neoplasm of colon Z12.11 ; History of adenomatous polyp of colon Z86.010 ; Chronic hepatitis C without hepatic coma B18.2 and Constipation K59.00 [facility] [address] [place] [phone] 05/18/2024 Choco Douglas Constipation K59.00 [facility] [address] [place] [phone] 11/04/2024 Choco Douglas Assessments Encounter Date Diagnosis [...] Pending Test Test Name Order Date BUN 06/26/2017 BUN 09/12/2013 BUN 07/30/2016 CREATININE 06/26/2017 CREATININE 09/12/2013 CREATININE 07/30/2016 LIVER PROFILE 06/25/2015 LIVER PROFILE 10/11/2021 LIVER PROFILE 04/22/2018 LIVER PROFILE 11/06/2023 LIVER PROFILE 12/26/2011 LIVER PROFILE 12/09/2017 LIVER PROFILE 03/27/2015 LIVER PROFILE 04/23/2016 LIVER PROFILE 01/01/2018 LIVER PROFILE 11/07/2022 LIVER PROFILE 03/01/2025 LIVER PROFILE 08/29/2015 LIVER PROFILE 06/20/2020 LIVER PROFILE 07/30/2016 LIVER PROFILE 06/16/2018 IRON + IBC (FE) 12/26/2011 FERRITIN 12/26/2011 CBC w DIFF 08/29/2015 CBC w DIFF 06/20/2020 CBC w DIFF 07/30/2016 CBC w DIFF 06/16/2018 CBC w DIFF 10/11/2021 CBC w DIFF 04/22/2018 CBC w DIFF 11/06/2023 CBC w DIFF 12/09/2017 CBC w DIFF 03/27/2015 CBC w DIFF 01/01/2018 CBC w DIFF 11/07/2022 CBC w DIFF 03/01/2025 PROTHROMBIN TIME (PT, INR) 06/20/2020 PROTHROMBIN TIME (PT, INR) 07/30/2016 PROTHROMBIN TIME (PT, INR) 10/11/2021 HEPATITIS A TOTAL 12/26/2011 HIV AG/AB 06/26/2017 ALPHA-FETOPROTEIN,TUMOR MARKER 3 ALPHA-FETOPROTEIN,TUMOR MARKER 2 ALPHA-FETOPROTEIN,TUMOR MARKER 5 ALPHA-FETOPROTEIN,TUMOR MARKER 8 ALPHA-FETOPROTEIN,TUMOR MARKER 0 ALPHA-FETOPROTEIN,TUMOR MARKER 4 ALPHA-FETOPROTEIN,TUMOR MARKER 6 ALPHA-FETOPROTEIN,TUMOR MARKER 2 HEPATITIS C VIRAL LOAD 10/11/2021 HEPATITIS C VIRAL LOAD 01/01/2018 HEPATITIS C VIRAL LOAD 08/29/2015 HEPATITIS C VIRAL LOAD 06/25/2015 HEPATITIS C VIRAL LOAD 11/07/2022 HEPATITIS C VIRAL LOAD 03/01/2025 HEPATITIS C VIRAL LOAD 07/30/2016 HEPATITIS C VIRAL LOAD 04/22/2018 HEPATITIS C VIRAL LOAD 06/16/2018 HEPATITIS C VIRAL LOAD 06/20/2020 HEPATITIS C VIRAL LOAD 12/09/2017 HEPATITIS C VIRAL LOAD 03/27/2015 HEPATITIS C VIRAL LOAD 11/06/2023 HEPATITIS C VIRAL LOAD 04/23/2016 HEPATITIS C GENOTYPE 12/26/2011 MRI ABD W&WO [...] COMP WITH ELASTOGRAPHY 2022 Prothrombin Time INR 11/07/2022 Prothrombin Time INR 11/06/2023 Prothrombin Time INR 03/01/2025 Alpha Fetoprotein 03/10/2025 Liver Fibrosis Pnl 03/10/2025 Liver Fibrosis Pnl 03/01/2025 US abdomen comp w elastography 5 US abdomen comp w elastography 4 US abdomen comp w elastography 5 Future Test Test Name Order Date COLONOSCOPY 12/26/2011 COLONOSCOPY 10/11/2021 Next Appt Details Provider Name:Choco Douglas , 03/01/2026 01:00:00 PM, [address] [place] [address], [address], [place], [address], Insurance Providers Payer Name Payer Address Payer Phone Subscriber Number Group Number Insured Name Patient Relationship to Insured Coverage Start Date Coverage End Date [facility] [address] Attn Claims JAYDE [place] [id number] JOHN KEATING Self - patient is the [...] viral load was nondetectable in 05/2019 Denies [place],DM,CVA,Lung disease,renal dise ase Negative screening colonoscopy in 12/2011 Depression Arthritis- especially in the back Asbrtjdpvl-nyavqtzuudvm-fwya on 11/2018 U/S- reviewed potential symptoms and need for surgery with patient and son at 06/15/19 OV Screening colonoscopy in Oct with removal of a small tubular adenoma; 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 in 01/2021 Cataracts-lens implants-both eyes Shoulder surgery-right 08/26/2014 [place] [id number]
--- OUTSIDE RECORDS SUMMARY | 2025-04-29 12:25 | XMS_ITS | Encounter Summary ---
Author Organization [employer] Address [address] [address] Care Team Providers Care Physiognomist Name Role Phone Lala Sarah MD Primary Care Provider [phone] Encounter Details Date Type Department Care Team (Latest Contact Info) Description 04/29/2025 Travel Social History Tobacco Use Types Packs/Day [...] AM EDT documented as of this encounter Functional Status * Over the past 2 weeks, how often have you been bothered by any of the following problems? Question Answer Date of Assessment Author Patient Health Questionnaire -2 Score 0 04/29/2025 11:10 AM EDT Kalie Arvizu MA * Little interest or pleasure in doing things Answer Date of Assessment Author Not at all 04/29/2025 11:10 AM EDT Kalie Arvizu MA * Feeling down, depressed, or hopeless Answer Date of Assessment Author Not at all 04/29/2025 11:10 AM Kalie Hayden MA * Trouble falling or staying asleep, or sleeping too much Answer Date of Assessment Author Not at all 04/29/2025 11:10 AM Kalie Hayden MA * Feeling tired or having little energy Answer Date of Assessment Author Not at all 04/29/2025 11:10 AM EDT Kalie Arvizu MA * Poor appetite or overeating Answer Date of Assessment Author Not at all 04/29/2025 11:10 AM NELIAT Kalie Arvizu MA * Feeling bad about yourself - or that you are a failure or have let yourself or your family down Answer Date of Assessment Author Not at all 04/29/2025 11:10 AM NELIAT Kalie Arvizu MA * Trouble concentrating on things, such [...] diff erent things 0 04/29/2025 11:10 AM Kalie Hayden MA Trouble relaxing 0 04/29/2025 11:10 AM Kalie Hayden MA Being so restless that it is hard to sit still 0 04/29/2025 11:10 AM Kalie Hayden MA Becoming easily annoyed or irritable 0 04/29/2025 11:10 AM Kalie Hayden MA Feeling afraid as if somethi ng awful might happen 0 04/29/2025 11:10 AM Kalie Hayden MA MICHAEL-7 Total Score 0 04/29/2025 11:10 AM Kalie Hayden MA documented as of this encounter Plan of Treatment Upcoming Encounters Date Type Department Care Team (Late st Contact Info) Description 09/06/2025 9:30 AM EST Office Visit [facility] [address] [place] [address] Mayra Ott, OD [address] [place] [address] documented as of this encounter Visit Diagnoses Not on filedocumented in this encounter Additional Health Concerns Assessment Noted Time PHQ-9 Depression Total Score: 0 04/29/20 25 11:10 AM EDT documented as of this encounter Care Teams Physiognomist Relationship Specialty Start Date End Date Lala Sarah MD [address] [place] [address] PCP - General Family Medicine 03/27/20 documented as of this encounter
--- OUTSIDE RECORDS SUMMARY | 2025-04-29 12:25 | XMS_ITS | Encounter Summary ---
Author Organization [employer] Address [address] [place] [address] Care Team Providers Care Hearing Therapy Director Name Role Phone Lala Sarah MD Primary Care Provider [phone] Reason for Visit * Reason Onset Date Comments Chart Prep 04/28/2025 Encounter Details Date Type Department Care Team ([facility] st Contact Info) Description 04/28/2025 Telephone [facility] [address] [place], [place] [phone] Lala Sarah MD [address] [place], [place] [phone] Chart Prep Social History Tobacco Use Types Packs/Day Years [...] the past 12 months, has t he [place], gas, oil or water company threatened to [...] encounter Miscellaneous Notes * Telephone Encounter - Sherri Dodd MA - 04/28/2025 11:24 AM EDT Chart Prep Labs: done Images: done Mammogram-([facility] [place] Referrals: not applicable Vaccines due: Covid, Flu, PCV20, Tdap, and RSV Screenings: not applicable Overdue care gaps: SBIRT, PHQ-9, and MICHAEL-7 documented in this encounter Plan of Treatment Upcoming Encounters Date Type Department Care Team (Late st Contact Info) Description 09/06/2025 9:30 AM EST Office Visit [facility] [address] [place] [address] Mayra Ott, OD [address] [place] [address] documented as of this encounter Visit Diagnoses Not on filedocumented in this encounter Care Teams Hearing Therapy Director Relationship Specialty Start Date End Date Lala Sarah MD [address] [place] [address] PCP - General Family Medicine 03/27/20 documented as of this encounter
--- OUTSIDE RECORDS SUMMARY | 2025-04-29 12:26 | XMS_ITS | Clinical Summary ---
Author Organization [employer] Address [address] [facility] [address] [place] [address] Care Team Providers Care Optician Apprentice Name Role Phone Lala Sarah MD Primary Care Provider [phone] Allergies Active Allergy Reactions Criticality Noted Date Comments Diphenhydramine High 09/16/2011 Other reaction(s): Itching Oxycodone 12/04/2023 Medications FLUoxetine (PROzac) 20 MG capsuleIndica tions:Depress mar [...] FOR CONSTIPATION 510 g 2 2024 Active hydroCHLOROth iazide 12.5 MG tablet TAKE 1 TABLET BY MOUTH EVERY MORNING 90 tablet 3 2024 Active gabapentin (Neurontin) 300 MG capsuleIndica tions:Arthral maggy, unspecified joint Take 1 capsule (300 mg) by mouth if needed each day (pain). 90 capsule 3 2024 Active zolpidem (Ambien) 5 MG tablet Take 1 tablet (5 mg) by mouth if needed at bedtime for sleep. 30 tablet 04/29 Active cholecalcifer ol (Vitamin D-3) 25 MCG (1000 UT) tablet Take 1 tablet by mouth. 04/29 Discontinued( Therapy completed) hydroCHLOROth iazide 12.5 MG tablet TAKE 1 TABLET BY MOUTH EVERY MORNING 90 tablet 3 04/19 Discontinued( Reorder (will not trigger notification to Pharmacy)) traZODone (Desyrel) 50 MG tabletIndicat ions:Other insomnia TAKE 1 TABLET BY MOUTH AT BEDTIME 30 tablet 6 04/29 Discontinued( Side effects) gabapentin (Neurontin) 300 MG capsuleIndica tions:Arthral maggy, unspecified joint TAKE 1 CAPSULE BY MOUTH THREE TIMES DAILY NEEDED 90 capsule 2 03/31 Discontinued gabapentin (Neurontin) 300 MG capsuleIndica tions:Arthral maggy, unspecified joint TAKE 1 CAPSULE BY MOUTH THREE TIMES DAILY NEEDED 90 capsule 04/19 Discontinued( Reorder (will not trigger notification to Pharmacy)) gabapentin (Neurontin) 300 MG capsuleIndica tions:Arthral maggy, unspecified joint Take 1 capsule (300 mg) by mouth 3 times daily. 90 capsule 2 04/29 Discontinued( Reorder (will not trigger notification to [...] of total hysterectomy 07/02/2022 Joint pain 09/27/2013 Chronic hepatitis C without hepatic coma 013 Constipation 02/04/2012 Depressive disorder 01/15/2012 Herniation of intervertebral disc 01/15/2012 Encounters Date Type Department Care Team Description 04/29/2025 11:00 AM EDT Office Visit [facility] [address] [place] [phone] Lala Sarah MD Chronic hepatitis C without hepatic coma (HCC); Dietary counseling; Exercise counseling; Overweight; Arthralgia, unspecified joint 04/29/2025 Travel 04/28/2025 Travel 04/28/2025 Telephone [facility] [address] [place] [phone] Lala Sarah MD Chart Prep 04/21/2025 Patient Outreach [facility] [address] [place] [phone] Lala Sarah MD Pre-visit Planning (SDOH screening negative and tobacco screening negative) 04/19/2025 Refill [facility] [address] [place] [address] [phone] Lala Sarah MD Arthralgia, unspecified joint 04/18/2025 Refill [facility] [address] [place] [phone] Lala Sarah MD 04/04/2025 1:30 PM EDT Office Visit [facility] ADULT DENTAL [address] [place] [phone] Kailash Bradley DDS Pain, dental (Primary Dx); Periodontal disease 03/31/2025 Refill [facility] [address] [place] [address] Lala Sarah MD Arthralgia, unspecified joint 03/30/2025 Refill [facility] [address] [place] [address] Lala Sarah MD 03/24/2025 Telephone [facility] [address] [place] [phone] Lala Sarah MD Durable Medical Equipment (DME Request: Hand Held Shower head) 03/21/2025 11:30 AM EDT Office Visit [facility] AD[facility] DENT[facility] [address] [place] [address] Kailash Bradley DDS Pain, dental (Primary Dx); Chronic periodontal disease; Dental abscess 03/15/2025 Telephone [facility] [address] [place] [phone] Lala Sarah MD Med Refill 03/10/2025 Refill [facility] [address] [place] [address] [phone] Lala Sarah MD 03/06/2025 Refill [facility] [address] [place] [phone] Lala Sarah MD 03/01/2025 Telephone [facility] [address] [place] [phone] Lala Sarah MD April02/17/2025 Refill [facility] [address] [place] [phone] Lala Sarah MD 02/14/2025 Telephone [facility] [address] [place] [phone] Lala Sarah MD Med Refill 02/01/2025 Refill [facility] [address] [place] [phone] Lala Sarah MD Arthralgia, unspecified joint from Last 3 Months Immunizations Immunization Administration [...] 20 04/29/2025 10:43 AM EDT Oxygen Saturation 98% 05/28/2024 9:20 AM EDT Inhaled Oxygen Concentration - - Weight 77.2 kg (170 lb 3.2 oz) 04/29/2025 10:43 AM EDT Height 162.6 cm (5' 4 ) 04/29/2025 10:43 AM EDT Body Mass Index 29.21 04/29/2025 10:43 AM EDT Plan of Treatment Upcoming Encounters Date Type Department Care Team (Late st Contact Info) Description 09/06/2025 9:30 AM EST Office Visit [facility] OPTOMETRY [address] [place] [address] Mayra Ott, OD [address] [place] [address] Health Maintenance Due Date Last Done Comments CT Colonography 1960 FIT DNA/Cologuard 1960 Sigmoidoscopy 1960 Pneumococcal Vaccine: 50+ Years (2 of 2 [...] 09/03/2025 09/03/2024, 08/2023, 08/23/2022, Additional history exists SDOH Screening 04/21/2026 04/21/2025 Alcohol/Substance Use Screening 04/29/2026 04/29/2025 Depression Screening 04/29/2026 04/29/2025, 04/29/20 Tobacco Screening 04/29/2026 04/29/2025 Colonoscopy 11/19/2026 11/19/2021 Colorectal Cancer Screening 11/19/2026 [...] AM EST Narrative 09/10/2024 5:29 PM EST [facility] [address] [place] [address] [place] [address] Mammography Report Signed Patient: Tammie Agrawal MR#: [id number] : 1960 Acct:[id number] Age/Sex: 63 / F ADM Date: 09/03/24 Loc: [facility] Attending Dr: Lala Sarah MD Ordering Physician: Lala Sarah Results: 1Negative Date of Service: 09/03/24 Follow Up: 1 Year From Orig inal Mammogram Procedure(s): MM tomosynthesis screening BI Accession Number(s): [id number] cc: Lala Sarah EXAMINATION: MM SCREENING DIGITAL [...] by: Junie Dugan DO 09/10/2024 05:26 PM [facility] [place] Dictated By: Junie Dugan DO Signed By: <Electronically signed by Junie Dugan DO in OV> 09/10/24 1726 DD/ 0945 TD/TT: 09/03/24 0956 Fish Bait Processing Supervisor: Procedure Note Donotuseinterpreter, Image - 09/10/2024 [facility] [address] [place] [address] Dr. Marmolejo, GEOGRE [address] Mammography Report Signed Patient: Tammie Agrawal MR#: [id number] : 9Acct:[id number] Age/Sex: 63 / FADM Date: 09/03/24 Loc: HO.MAMMO Attending Dr: Lala Sarah MD Ordering Physician: Sofi Sarahults: 1Negative Date of Service: 09/03/24Follow Up: 1 Year From Orig inal Mammogram Procedure(s): MM tomosynthesis screening BI Accession Number(s): [id number] cc: Lala Sarah EXAMINATION: MM SCREENING DIGITAL [...] 09/10/24 1726 DD/ 0945 TD/TT: 09/03/24 0956 Fish Bait Processing Supervisor: us Lala Sarah MD IM BI PROCEDURES Edited Resul t - Final * (ABNORMAL) Lipid Panel, Standard (06/05/2023 8:13 AM EST) Triglycerides 111 <150 mg/dL [facility] Comment:Desirable Triglyceri de: less than 150 mg/dLBorderline High Triglyceride 150-199 mg/dLHigh Triglyceride: 200-499 mg/dLVery High Triglyceride: greater than or equal to 5OO mg/dL Cholesterol 219(H) <200 mg/dL [facility] Comment:Desirable Cholestero l: less than 200 mg/dLBorderline High Cholesterol: 200-239 mg/dLHigh Cholesterol: greater than 239 mg/dL LDL Cholesterol Calculated 136(H) <100 mg/dL [facility] Comment:Desirable LDL: less than 100 mg/dLNear Optimal/Above Optimal LDL: 110- 129 mg/dLBorderline High LDL: 130-159 mg/dLHigh LDL: 160-189 mg/dLVery High LDL: greater than or equal to 190 mg/dL HDL Cholesterol 61 >40 mg/dL [facility] Comment:Desirable HDL: great er than 40 mg/dL Note: This HDL assay may give artificially low results in patients with liver disease. Blood Venous blood specimen / Unknown 06/05/2023 8:13 AM EST 06/05/2023 11:02 AM EST Lala Sarah MD LAB BLOOD ORDERABLES Final Res ult [facility] [address] [place] [phone] * Fecal Globin by Immunochemistry (07/08/2022 12:00 AM EST) Fecal Globin By Immunochemistry SEE NOTE [facility] Comment: FECAL GLOBIN BY IMMUNOCHEMISTRY Micro Number: [id number] Test Status: Final Specimen Source: Insure (tm) fobt test card Specimen Quality: Adequate Fecal Globin: Not Detected 07/08/2022 07/16/2022 6:2 6 AM EST Narrative [facility] - 07/25/2022 10:37 AM EST FASTING: UNKNOWN [facility] External Provider LAB BODY FLUIDS AND STOOLS ORDERABLES Final Result Performing Organization Address City/[facility]/ZIP Co de Phone Number [employer] [address] [place] [address] [facility] [address] [place] [address] * Colonoscopy (11/19/2021) Historical Provider HEALTH MAINTENANCE Final Result * (ABNORMAL) HPV mRNA E6/E7 REFLEX TO HPV 16, 18/45 (06/08/2021 10:35 AM EST) HPV nRNA E6/E7 Detected (A) Not Detected [facility] Comment: Methodology: Customer Agent-Mediated Amplification This assay detects E6/E7 viral messenger RNA (mRNA) from 14 high-risk HPV types (16,18,31,33,35,39,45,51,52,56,58,59,66,68). The analytical performance characteristics of this assay have been determined by [facility]. The modifications have not been cleared or approved by the FDA. This assay has been validated pursuant to the CLIA regulations and is used for clinical purposes. For additional information, please refer to http://education.Mapbar/faq/ROK175x1 (This link if provided for information/ educational purposes only.) 06/08/2021 10:3 5 AM EST us Lala Sarah MD LAB CYTOLOGY ORDERABLES Final Result [facility] [address] from Last 3 Months or Most Recently Relevant to Health Maintenance Insurance [facility] OPTIONS (O D-SNP) JAYDE IKRK [id number] [facility] Care Teams Optician Apprentice Relationship Specialty Start Date End Date Lala Sarah MD [address] [place] [phone] PCP - General Family Medicine 03/27/20
--- OUTSIDE RECORDS SUMMARY | 2025-04-29 12:26 | XMS_ITS | Encounter Summary ---
Author Organization [facility] Address [address] [facility] [address] [place] [address] Care Team Providers Care Metal Products Fabricator Assembler Name Role Phone Lala Sarah MD Primary Care Provider [phone] Encounter Details Date Type Department Care Team (Late st Contact Info) Description 06/18/2023 Orders Only [facility] [address] [place], [place] [phone] Lala Sarah MD [address] [place] [address] Social History Tobacco Use Types Packs/Day Years [...] Description 09/06/2025 9:30 AM EST Office Visit [facility] OPTOMETRY [address] [place], [place] [phone] Mayra Ott OD [address] [place], [place] [phone] documented as of this encounter Visit Diagnoses Not on filedocumented in this encounter Care Teams Metal Products Fabricator Assembler Relationship Specialty Start Date End Date Lala Sarah MD [address] [place] [phone] PCP - General Family Medicine 03/27/20 documented as of this encounter
--- OUTSIDE RECORDS SUMMARY | 2025-04-29 12:26 | XMS_ITS | Encounter Summary ---
Author Organization [facility] Address [address] [facility] [address] [place] [address] Care Team Providers Care Flooring Helper Name Role Phone Lala Sarah MD Primary Care Provider [phone] Reason for Visit * Reason Comments Med Refill Encounter Details Date Type Department Care Team (Late st Contact Info) Description 08/06/2024 Refill [facility] [address] [place], [place] [phone] Lala Sarah MD [address] [place] [address] Social History Tobacco Use Types Packs/Day Years [...] 9:30 AM EST Office Visit [facility] OPT[facility]ET[facility] [address] [place], [place] [phone] Mayra Ott OD [address] [place] [address] documented as of this encounter Visit Diagnoses Not on filedocumented in this encounter Care Teams Flooring Helper Relationship Specialty Start Date End Date Lala Sarah MD [address] [place] [address] PCP - General Family Medicine 03/27/20 documented as of this encounter
[2025-04-29 14:38] LABS: Alanine Aminotransferase 13 U/L (0-31); Albumin Level 4.3 g/dL (3.5-5.0); Alkaline Phosphatase 111 U/L (39-117); Anion Gap 10 (12-20); Aspartate Amino Transferase 26 U/L (5-31); Blood Urea Nitrogen 20 mg/dL (9-16); Calcium 9.4 mg/dL (8.4-10.2); Carbon Dioxide 29 mmol/L (22-29); Chloride 105 mmol/L (96-108); Cholesterol 226 mg/dL (<200); Estimated Glomerular Filt Rate 58; HDL Cholesterol 66 mg/dL (>40); Potassium 3.3 mmol/L (3.3-5.1); Sodium 141 mmol/L (135-145); Total Protein 8.0 g/dL (6.5-8.0); Triglycerides 96 mg/dL (<150)
== END 2025-04-29 11:13 | disposition home or self-care (01) ==
LOC: HO.HHCL 11:12
PROVIDERS: PCP General Practice; Visit Provider General Practice
DX: E66.3 Overweight (principal); Z13.1 Encounter for screening for diabetes mellitus
CPT/HCPCS: 36415; 80053; 80061; 83036